=== PATIENT | female | born 1965 | race African-American/Black ===

== ENCOUNTER 2016-10-22 23:10 | Emergency (ER) | payer SELFPAY ==
[2016-10-23] MEDS ORDERED: HYDROCODONE/ACETAMINOPHEN 5-325 MG TABLET PO ONE (01:22)
--- NOTE | 2016-10-23 01:22 | ER Document Report ---
ED Extremity Problem, Lower - General Chief Complaint: Foot Pain Stated Complaint: LEG/FEET NUMBNESS Time seen by provider: 01:20 Mode of Arrival: Ambulatory Information source: Patient Notes: 51-year-old female presents to ED for left right foot pain and swelling for about a year worse for the last 2 months TRAVEL OUTSIDE OF THE [place] IN LAST 30 DAYS: No - HPI Patient complains to provider of: Pain, Swelling - Bilateral feet Location: Foot Occurred: Other - About a year worse for the last 2 months Onset/Duration: Intermittent Quality of pain: Sharp, Throbbing Severity: Severe Pain Level: 5 Context: Other - Painful bilateral feet Recent injury: No Associated symptoms: Painful ambulation Exacerbated by: Movement, Walking Relieved by: Nothing - Related Data Allergies/Adverse Reactions: No Known Allergies Allergy (Verified 10/23/16 01:25) Past Medical History - General Information source: Patient - Social History Smoking Status: Current Every Day Smoker Cigarette use (# per day): Yes Chew tobacco use (# tins/day): No Frequency of alcohol use: Occasional Drug Abuse: None Lives with: Family Family History: Arthritis, CAD, CVA, Hyperlipidemia, Hypertension - Past Medical History Cardiac Medical History: Reports: None Pulmonary Medical History: Reports: None EENT Medical History: Reports: None Neurological Medical History: Reports: None Endocrine Medical History: Reports: None Renal/ Medical History: Reports: None Malignancy Medical History: Reports: None GI Medical History: Reports: None Musculoskeltal Medical History: Reports Hx Arthritis, Reports Hx Gout, Reports Hx Musculoskeletal Trauma Skin Medical History: Reports None Psychiatric Medical History: Reports: None Traumatic Medical History: Reports: Hx Fractures - right toes 4th and 5th Infectious Medical History: Reports: None Past Surgical History: Reports: Hx Section, Hx Orthopedic Surgery - left wrist cyst - Immunizations Immunizations up to date: Yes Hx Diphtheria, Pertussis, Tetanus Vaccination: Yes Review of Systems - Review of Systems Constitutional: No symptoms reported EENT: No symptoms reported Cardiovascular: No symptoms reported Respiratory: No symptoms reported Gastrointestinal: No symptoms reported Genitourinary: No symptoms reported Female Genitourinary: No symptoms reported Musculoskeletal: Other - Both feet to painful to walk Skin: No symptoms reported Hematologic/Lymphatic: No symptoms reported Neurological/Psychological: No symptoms reported -: Yes All other systems reviewed and negative Physical Exam - Vital signs Vitals: Temp Pulse Resp BP Pulse Ox 98.2 F 95 18 143/67 H 95 10/22/16 23:16 10/22/16 23:16 10/22/16 23:16 10/22/16 23:16 10/22/16 23:16 Interpretation: Normal - General General appearance: Appears well, Alert - HEENT Head: Normocephalic, Atraumatic Eyes: Normal Pupils: PERRL - Respiratory Respiratory status: No respiratory distress Chest status: Nontender Breath sounds: Normal Chest palpation: Normal - Cardiovascular Rhythm: Regular Heart sounds: Normal auscultation Murmur: No - Abdominal Inspection: Normal Distension: No distension Bowel sounds: Normal Tenderness: Nontender Organomegaly: No organomegaly - Back Back: Normal, Nontender - Extremities General upper extremity: Normal inspection, Nontender, Normal color, Normal ROM , Normal temperature General lower extremity: Normal inspection, Normal color, Normal ROM, Normal temperature. No: Nagi's sign Foot: Tender, No evidence of FB, Other - Small knot on the arch of the left foot plantar surface - Neurological Neuro grossly intact: Yes Cognition: Normal Orientation: AAOx4 [place] Coma Scale Eye Opening: Spontaneous [place] Coma Scale Verbal: Oriented [place] Coma Scale Motor: Obeys Commands [place] Coma Scale Total: 15 Speech: Normal Motor strength normal: LUE, RUE, LLE, RLE Sensory: Normal - Psychological Associated symptoms: Normal affect, Normal mood - Skin Skin Temperature: Warm Skin Moisture: Dry Skin Color: Normal Course - Re-evaluation Re-evalutation: 10/23/16 02:21 Discussed x-rays with patient written report given to patient for follow-up with home care coordinator. Patient was treated with 1 [place] in the ED and discharged home with instructions to use ibuprofen and follow-up with the home care coordinator for her chronic pain. - Vital Signs Vital signs: Temp Pulse Resp BP Pulse Ox 98.4 F 83 16 128/87 H 97 10/23/16 02:34 10/23/16 02:34 10/23/16 02:34 10/23/16 02:34 10/23/16 02:34 - Diagnostic Test Radiology reviewed: Image reviewed, Reports reviewed Discharge - Discharge Clinical Impression: Chronic foot pain Qualifiers: Laterality: unspecified laterality Qualified Code(s): M79.673 - Pain in unspecified foot Condition: Stable Disposition: HOME, SELF-CARE Instructions: Family Physicians / Practices Additional Instructions: Chronic Pain Control Stress, inactivity, and depression make pain more severe regardless of the cause of the pain. Stress and poor physical condition can cause pain such as headaches and backache. Relaxation: Rest in a quiet place with your eyes closed for 20 minutes twice daily. Concentrate on a pleasant image, or simply "feel" your breathing. Clear your mind. Stress management: Deal with your "stressors." Either take action, or eliminate the stressor from your life. Don't let things hang over you. Accept those things you can't change. Nutrition: Eat small, balanced meals -- don't skip, don't overeat. Meals should be high-carbohydrate, low-sugar, low-fat. Exercise: Exercise helps painful conditions and eases stress. Get 30 minutes of moderate exercise, five days a week. Do an activity that does not flare your pain. Precautions: Pain which continues to disrupt daily activities, or which changes in nature, requires a medical evaluation. Pain Clinic referral is available. We do not manage chronic pain in the Emergency Department. We will try to appropriately help you through an acute flare of your chronic painful condition , but for on-going chronic pain that does not improve, you will need to see your private doctor or apprentice painter hand. We do not provide repeated medication management of chronic painful conditions. If you wish, we can provide the name of local pain management physicians. Ibuprofen Ibuprofen is an excellent, safe drug for pain control. In addition, it has potent antiinflammatory effects which are beneficial, especially in the treatment of injuries, arthritis, or tendonitis. It's best to take ibuprofen with food. Persons with ulcer disease or allergy to aspirin should notify their physician of this before taking ibuprofen. Take the medication exactly as prescribed. Don't take additional doses unless instructed to do so by your doctor. If you develop wheezing, shortness of breath, hives, faintness, stomach pain, vomiting, or dark black stools, return for re-evaluation at once. FOLLOW-UP CARE: If you have been referred to a physician for follow-up care, call the physician s office for an appointment as you were instructed or within the next two days. If you experience worsening or a significant change in your symptoms, notify the physician immediately or return to the Emergency Department at any time for re-evaluation. Please follow-up with your primary doctor and a home care coordinator for your chronic pain to your feet. Forms: Elevated Blood Pressure Referrals: JOSE ENRIQUE DPM [ACTIVE STAFF] - Follow up as needed
[2016-10-23 02:36] VITALS: BP 128/87
== END 2016-10-23 02:35 | disposition home or self-care (01) ==
LOC: ER 23:10
DX: M79.671 Pain in right foot (principal); M79.672 Pain in left foot; G89.29 Other chronic pain; R22.42 Localized swelling, mass and lump, left lower limb; F17.210 Nicotine dependence, cigarettes, uncomplicated; Z87.81 Personal history of (healed) traumatic fracture
CPT/HCPCS: 99283

== ENCOUNTER 2016-11-01 04:43 | Emergency (ER) | payer SELFPAY ==
[2016-11-01] MEDS ORDERED: NORMAL SALINE 500 ML IV ONE (06:01)
[2016-11-01] MEDS ORDERED: MORPHINE SULFATE 10 MG/ML INJ IV ONE (06:02)
[2016-11-01 06:03] VITALS: BP 121/84
[2016-11-01 06:44] LABS: ABSOLUTE EOSINOPHILS # (AUTO) 0.1 10^3/uL (0.0-0.6); ABSOLUTE LYMPHOCYTES (AUTO) 1.3 10^3/uL (0.5-4.7); ABSOLUTE MONOCYTES (AUTO) 0.7 10^3/uL (0.1-1.4); ABSOLUTE NEUT (AUTO) 4.1 10^3/uL (1.7-8.2); BASOPHILS % (AUTO) 0.8 % (0-2); EOSINOPHILS % (AUTO) 2.3 % (0-6); HEMATOCRIT 31.6 % (36.0-47.0); HEMOGLOBIN 10.2 g/dL (12.0-15.5); LYMPHOCYTES % (AUTO) 20.8 % (13-45); MEAN CORPUSCULAR HEMOGLOBIN 26.9 pg (27.0-33.4); MEAN CORPUSCULAR HGB CONC 32.3 g/dL (32.0-36.0); MEAN CORPUSCULAR VOLUME 83 fl (80-97); MONOCYTES % (AUTO) 10.6 % (3-13); RED BLOOD COUNT 3.81 10^6/uL (3.72-5.28); RED CELL DISTRIBUTION WIDTH 14.4 % (11.5-14.0); SEGMENTED NEUTROPHILS % (AUTO) 65.5 % (42-78); WHITE BLOOD COUNT 6.3 10^3/uL (4.0-10.5)
[2016-11-01 06:56] LABS: ALANINE AMINOTRANSFERASE 35 U/L (9-52); ALBUMIN 3.7 g/dL (3.5-5.0); ALKALINE PHOSPHATASE 48 U/L (38-126); ANION GAP 7 (5-19); ASPARTATE AMINO TRANSFERASE 40 U/L (14-36); BILIRUBIN,TOTAL 0.6 mg/dL (0.2-1.3); BLOOD UREA NITROGEN 7 mg/dL (7-20); CALCIUM 9.5 mg/dL (8.4-10.2); CARBON DIOXIDE 25 mmol/L (22-30); CHLORIDE 102 mmol/L (98-107); CREATININE RESULT 0.64 mg/dL (0.52-1.25); GLUCOSE 106 mg/dL (75-110); POTASSIUM 4.3 mmol/L (3.6-5.0); SODIUM 134.2 mmol/L (137-145); TOTAL PROTEIN 7.3 g/dL (6.3-8.2)
--- NOTE | 2016-11-01 07:39 | ER Document Report ---
ED General - General Chief Complaint: Abdominal Pain Stated Complaint: ABDOMINAL PAIN Mode of Arrival: Medic Information source: Patient Notes: 51-year-old female presents with complaints of sudden sharp abdominal pain. Patient notes the pain is in the left upper left lower quadrant not associated with fever nausea vomiting or diarrhea. Patient does note blood pain is well, states she's been coughing for 2 days TRAVEL OUTSIDE OF THE [place] IN LAST 30 DAYS: No - HPI Onset: Just prior to arrival Onset/Duration: Sudden Quality of pain: Sharp Severity: Mild Pain Level: 1 Associated symptoms: Other Exacerbated by: Denies Relieved by: Denies Similar symptoms previously: Yes Recently seen / treated by doctor: No - Related Data Allergies/Adverse Reactions: No Known Allergies Allergy (Verified 10/23/16 01:25) Past Medical History - Social History Smoking Status: Never Smoker Cigarette use (# per day): No Chew tobacco use (# tins/day): No Smoking Education Provided: No Family History: Arthritis, CAD, CVA, Hyperlipidemia, Hypertension Renal/ Medical History: Denies: Hx Peritoneal Dialysis Musculoskeltal Medical History: Reports Hx Arthritis, Reports Hx Gout, Reports Hx Musculoskeletal Trauma Traumatic Medical History: Reports: Hx Fractures - right toes 4th and 5th Past Surgical History: Reports: Hx Section, Hx Orthopedic Surgery - left wrist cyst - Immunizations Immunizations up to date: Yes Hx Diphtheria, Pertussis, Tetanus Vaccination: Yes Review of Systems - Review of Systems Notes: REVIEW OF SYSTEMS: CONSTITUTIONAL : Denies fever, chills, or sweats. Denies recent illness. EENT: Denies eye, ear, throat, or mouth pain or symptoms. Denies nasal or sinus congestion or discharge. Denies throat, tongue, or mouth swelling or difficulty swallowing. CARDIOVASCULAR: Denies chest pain. Denies palpitations or racing or irregular heart beat. Denies ankle edema. RESPIRATORY: Denies cough, cold, or chest congestion. Denies shortness of breath, difficulty breathing, or wheezing. GASTROINTESTINAL: Admits to abdominal pain GENITOURINARY: Denies difficulty urinating, painful urination, burning, frequency, blood in urine, or discharge. FEMALE GENITOURINARY: Denies vaginal bleeding, heavy or abnormal periods, irregular periods. Denies vaginal discharge or odor. MUSCULOSKELETAL: Denies back or neck pain or stiffness. Denies joint pain or swelling. SKIN: Denies rash, lesions or sores. HEMATOLOGIC : Denies easy bruising or bleeding. LYMPHATIC: Denies swollen, enlarged glands. NEUROLOGICAL: Denies confusion or altered mental status. Denies passing out or loss of consciousness. Denies dizziness or lightheadedness. Denies headache. Denies weakness or paralysis or loss of use of either side. Denies problems with gait or speech. Denies sensory loss, numbness, or tingling. Denies seizures. PSYCHIATRIC: Denies anxiety or stress. Denies depression, suicidal ideation, or homicidal ideation. ALL OTHER SYSTEMS REVIEWED AND NEGATIVE. Dictation was performed using [employer] voice recognition software PHYSICAL EXAMINATION: GENERAL: Well-appearing, well-nourished and in no acute distress. HEAD: Atraumatic, normocephalic. EYES: Pupils equal round and reactive to light, extraocular movements intact, conjunctiva are normal. ENT: Nares patent, oropharynx clear without exudates. Moist mucous membranes. NECK: Normal range of motion, supple without lymphadenopathy LUNGS: Breath sounds clear to auscultation bilaterally and equal. No wheezes rales or rhonchi. HEART: Regular rate and rhythm without murmurs ABDOMEN: Soft, nontender, nondistended abdomen. No guarding, no rebound. No masses appreciated. Female : deferred Musculoskeletal: Normal range of motion, no pitting or edema. No cyanosis. NEUROLOGICAL: Cranial nerves grossly intact. Normal speech, normal gait. Normal sensory, motor exams PSYCH: Normal mood, normal affect. SKIN: Warm, Dry, normal turgor, no rashes or lesions noted. Physical Exam - Vital signs Vitals: Temp Pulse Resp BP Pulse Ox 99.4 F 97 18 121/84 99 11/01/16 04:45 11/01/16 04:45 11/01/16 04:45 11/01/16 04:45 11/01/16 04:45 Course - Re-evaluation Re-evalutation: 11/01/16 07:38 Patient notes no tenderness on palpation, lab work is quite benign, CT of the abdomen has been ordered as I do not see any findings wanting the patient's pain 11/01/16 08:26 CT noted no acute abnormality however there is enlargement of adrena gland noted , patient has been made aware of this and has been instructed to give instructions to her primary care physician for further evaluation of this. Patient states she will. I believe the patient's pain secondary to her cough given that there is no other fractures process noted After performing a Medical Screening Examination, I estimate there is LOW risk for ACUTE CORONARY SYNDROME, RESPIRATORY FAILURE, SEPSIS OR MENINGITIS, thus I consider the discharge disposition reasonable. The patient and I have discussed the diagnosis and risks, and we agree with discharging home with close follow- up. We also discussed returning to the Emergency Department immediately if new or worsening symptoms occur. We have discussed the symptoms which are most concerning (e.g., changing or worsening pain, trouble swallowing or breathing, neck stiffness, fever) that necessitate immediate return. - Vital Signs Vital signs: Temp Pulse Resp BP Pulse Ox 99.4 F 97 18 121/84 99 11/01/16 04:45 11/01/16 04:45 11/01/16 04:45 11/01/16 04:45 11/01/16 04:45 - Laboratory Result Diagrams: 11/01/16 06:33 11/01/16 06:33 Laboratory results interpreted by me: 11/01/16 11/01/16 06:33 06:33 Hgb 10.2 L Hct 31.6 L MCH 26.9 L RDW 14.4 H Sodium 134.2 L AST 40 H - Diagnostic Test Radiology reviewed: Image reviewed, Reports reviewed Discharge - Discharge Clinical Impression: Adrenal mass URI (upper respiratory infection) Qualifiers: URI type: unspecified viral URI Qualified Code(s): J06.9 - Acute upper respiratory infection, unspecified; B97.89 - Other viral agents as the cause of diseases classified elsewhere Abdominal pain Qualifiers: Abdominal location: left upper quadrant Qualified Code(s): R10.12 - Left upper quadrant pain Condition: Stable Disposition: HOME, SELF-CARE Instructions: Upper Respiratory Illness ([facility]) Additional Instructions: Follow up with your physician tomorrow for further care or return to the ED IMMEDIATELY if symptoms worsen or new concerns occur Prescriptions: Hydrocodone Bit/Homatropine [Hycodan Syrup 5-1.5 mg/5 ml Ud Cup] 5 ml PO Q4HP PRN #120 ml PRN Reason: Forms: Return to Work
[2016-11-01] MEDS ORDERED: OXYCODONE-ACETAMINOPHEN 5-325 MG TABLET PO ONE (08:31)
== END 2016-11-01 08:45 | disposition home or self-care (01) ==
LOC: ER 04:43
DX: J06.9 Acute upper respiratory infection, unspecified (principal); B97.89 Other viral agents as the cause of diseases classified elsewhere; R10.12 Left upper quadrant pain; R10.32 Left lower quadrant pain; R59.0 Localized enlarged lymph nodes; R05 Cough
CPT/HCPCS: 99284; 96374; 36415; 83690; 85025; 80053; 74177; J2270; J7040

== ENCOUNTER 2017-01-16 06:12 | Emergency (ER) | payer SELFPAY ==
[2017-01-16] MEDS ORDERED: OXYCODONE-ACETAMINOPHEN 5-325 MG TABLET PO ONE (07:50)
[2017-01-16] MEDS ORDERED: ONDANSETRON 4 MG TAB.RAPDIS PO ONE (07:50)
--- NOTE | 2017-01-16 07:56 | ER Document Report ---
ED Extremity Problem, Lower - General Mode of Arrival: Medic Information source: Patient TRAVEL OUTSIDE OF THE [place] IN LAST 30 DAYS: No - HPI Patient complains to provider of: Pain Location: Foot - Right Occurred: Yesterday Onset/Duration: Gradual, Worse Recent injury: No Associated symptoms: Painful ambulation <FAIZA RODRIGUEZ - Last Filed: 01/16/17 07:51> <CATALINO CARSON - Last Filed: 01/16/17 10:15> - General Chief Complaint: Foot Pain Stated Complaint: RIGHT SIDE PAIN,DIZZY Notes: Patient is a 51-year-old female presenting to the emergency department via EMS with chief complaint right foot pain onset last night. Patient states that she is unable to walk, and is experiencing some lack of sensation under her foot. Patient also states that the pain radiates up her leg into her hip and lower back. Patient denies any injury or excessive walking. Patient states that she has a history of gout on her other foot in the same location, which was diagnosed approximately one year ago. (FAIZA RODRIGUEZ) - Related Data Allergies/Adverse Reactions: No Known Allergies Allergy (Verified 01/16/17 06:48) Past Medical History - General Information source: Patient, [facility] Records - Social History Smoking Status: Current Every Day Smoker Chew tobacco use (# tins/day): No Frequency of alcohol use: Rare Drug Abuse: None Family History: Arthritis, CAD, CVA, Hyperlipidemia, Hypertension Musculoskeltal Medical History: Reports Hx Arthritis, Reports Hx Gout, Reports Hx Musculoskeletal Trauma Traumatic Medical History: Reports: Hx Fractures - right toes 4th and 5th Past Surgical History: Reports: Hx Section, Hx Orthopedic Surgery - L wrist cyst - Immunizations Immunizations up to date: Yes Hx Diphtheria, Pertussis, Tetanus Vaccination: Yes <FAIZA RODRIGUEZ - Last Filed: 01/16/17 07:51> Review of Systems - Review of Systems Constitutional: No symptoms reported EENT: No symptoms reported Cardiovascular: No symptoms reported Respiratory: No symptoms reported Gastrointestinal: No symptoms reported Genitourinary: No symptoms reported Female Genitourinary: No symptoms reported Musculoskeletal: See HPI, Other - Right foot tenderness radiating up leg into hip and lower back Skin: No symptoms reported Hematologic/Lymphatic: No symptoms reported Neurological/Psychological: No symptoms reported -: Yes All other systems reviewed and negative <FAIZA RODRIGUEZ - Last Filed: 01/16/17 07:51> Physical Exam - General General appearance: Alert - HEENT Head: Normocephalic, Atraumatic Eyes: Normal Pupils: PERRL - Respiratory Respiratory status: No respiratory distress Chest status: Nontender Breath sounds: Normal Chest palpation: Normal - Cardiovascular Rhythm: Regular Heart sounds: Normal auscultation Murmur: No - Abdominal Inspection: Normal Distension: No distension Bowel sounds: Normal Tenderness: Nontender Organomegaly: No organomegaly - Back Back: Normal, Nontender - Extremities General upper extremity: Normal inspection, Nontender Foot: Tender - Right foot inflamed and tender over the bunion. - Neurological Neuro grossly intact: Yes Cognition: Normal Orientation: AAOx4 [place] Coma Scale Eye Opening: Spontaneous [place] Coma Scale Verbal: Oriented [place] Coma Scale Motor: Obeys Commands [place] Coma Scale Total: 15 Speech: Normal - Psychological Associated symptoms: Normal affect, Normal mood - Skin Skin Temperature: Warm Skin Moisture: Dry Skin Color: Normal <MICHAELFAIZA - Last Filed: 01/16/17 07:51> Course <MICHAELFAIZA - Last Filed: 01/16/17 07:51> - Laboratory Result Diagrams: 01/16/17 08:50 01/16/17 08:50 <CATALINO CARSON - Last Filed: 01/16/17 10:15> - Re-evaluation Re-evalutation: 01/16/17 10:14 Reevaluation after the patient had pain medication on board allows a better exam of the right foot. There is tender swelling erythema to the right first MTP joint. There is a bunion, but this is not the problem. The patient's uric acid level was 8.4 which helps confirm this being a gout attack. (CATALINO CARSON ) - Vital Signs Vital signs: Temp Pulse Resp BP Pulse Ox 98.9 F 102 H 20 120/65 96 01/16/17 06:22 01/16/17 06:22 01/16/17 06:22 01/16/17 06:22 01/16/17 06:22 - Laboratory Laboratory results interpreted by me: 01/16/17 01/16/17 08:50 08:50 Hgb 11.5 L MCV 78 L MCH 25.0 L MCHC 31.9 L RDW 17.5 H Carbon Dioxide 21 L Glucose 125 H Uric Acid 8.4 H Total Protein 8.4 H Discharge <FAIZA RODRIGUEZ - Last Filed: 01/16/17 07:51> <CATALINO CARSON - Last Filed: 01/16/17 10:15> - Discharge Clinical Impression: Gout attack Qualifiers: Gout site: toe Gout etiology: unspecified cause Laterality: right Qualified Code(s): M10.9 - Gout, unspecified Condition: Stable Disposition: HOME, SELF-CARE Additional Instructions: Gout: You have been diagnosed as having gout. Gout is a problem caused by an excess of uric acid, a natural chemical found in the body. The cause of this disease is unknown. Gout arthritis occurs when crystals of uric acid form in the joints. The big toe is the most common joint involved, but any joint can become affected. Persons with gout may also form uric acid kidney stones, resulting in flank pain and blood in the urine. Nodules of uric acid may form under the skin. The first step of treatment is to decrease the inflammation in the joint with antiinflammatory medication. Medication to lower the uric acid level in the blood may then be prescribed. This medication should be taken regularly, as any sudden change in dosage may provoke an attack of gout. Some foods, such as red meat, can provoke an attack in some gout sufferers. Call the doctor if new symptoms arise, or if you do not improve. //////////////////////////////////////////////////////////////////////////////// //////////////////////////////////////////////////////////////////////////////// //////////////// Start the prednisone tomorrow, you have had today's dose here in the emergency room. Take the pain medication as needed. Elevate your foot as much as possible. Limit walking, standing, and weightbearing. Follow-up with the [facility] this week to discuss treating your gout and elevated uric acid levels. RETURN TO THE EMERGENCY ROOM IF ANY NEW OR WORSENING SYMPTOMS. Prescriptions: Oxycodone HCl/Acetaminophen [Percocet 5-325 mg Tablet] 1 tab PO ASDIR PRN #15 tablet PRN Reason: Prednisone [Deltasone 10 mg Tablet] 10 mg PO ASDIR PRN #21 tablet PRN Reason: Forms: Return to Work Referrals: [facility] [Primary Care Provider] - Follow up in 3-5 days Scribe Attestation: 01/16/17 10:15 I personally performed the services described in the documentation, reviewed and edited the documentation which was dictated to the scribe in my presence, and it accurately records my words and actions. (CATALINO CARSON) Scribe Documentation - Scribe Written by Scribe:: Faiza Rodriguez 01/16/2017 [id number] acting as scribe for :: Dell <FAIZA RODRIGUEZ - Last Filed: 01/16/17 07:51>
[2017-01-16 09:01] LABS: ABSOLUTE BASOPHILS # (AUTO) 0.1 10^3/uL (0.0-0.2); ABSOLUTE EOSINOPHILS # (AUTO) 0.1 10^3/uL (0.0-0.6); ABSOLUTE LYMPHOCYTES (AUTO) 2.2 10^3/uL (0.5-4.7); ABSOLUTE MONOCYTES (AUTO) 0.8 10^3/uL (0.1-1.4); ABSOLUTE NEUT (AUTO) 7.3 10^3/uL (1.7-8.2); BASOPHILS % (AUTO) 1.4 % (0-2); EOSINOPHILS % (AUTO) 0.6 % (0-6); HEMATOCRIT 36.1 % (36.0-47.0); HEMOGLOBIN 11.5 g/dL (12.0-15.5); HGB HCT DIFFERENCE -1.6; LYMPHOCYTES % (AUTO) 20.7 % (13-45); MEAN CORPUSCULAR HGB CONC 31.9 g/dL (32.0-36.0); MEAN CORPUSCULAR VOLUME 78 fl (80-97); MONOCYTES % (AUTO) 7.8 % (3-13); RED CELL DISTRIBUTION WIDTH 17.5 % (11.5-14.0); SEGMENTED NEUTROPHILS % (AUTO) 69.5 % (42-78); WHITE BLOOD COUNT 10.5 10^3/uL (4.0-10.5)
[2017-01-16 09:22] LABS: ALANINE AMINOTRANSFERASE 28 U/L (9-52); ALBUMIN 4.7 g/dL (3.5-5.0); ALKALINE PHOSPHATASE 58 U/L (38-126); ANION GAP 17 (5-19); ASPARTATE AMINO TRANSFERASE 33 U/L (14-36); BILIRUBIN,DIRECT 0.2 mg/dL (0.0-0.4); BILIRUBIN,TOTAL 0.8 mg/dL (0.2-1.3); BLOOD UREA NITROGEN 7 mg/dL (7-20); CALCIUM 10.1 mg/dL (8.4-10.2); CARBON DIOXIDE 21 mmol/L (22-30); CHLORIDE 102 mmol/L (98-107); CREATININE RESULT 0.65 mg/dL (0.52-1.25); GLUCOSE 125 mg/dL (75-110); SODIUM 139.5 mmol/L (137-145); TOTAL PROTEIN 8.4 g/dL (6.3-8.2); URIC ACID 8.4 mg/dL (2.5-7.5)
[2017-01-16] MEDS ORDERED: PREDNISONE 20 MG TABLET PO ONE (10:04)
[2017-01-16] MEDS ORDERED: COLCHICINE 0.6 MG TABLET PO ONE (10:16)
[2017-01-16 10:38] VITALS: BP 131/71
== END 2017-01-16 10:34 | disposition home or self-care (01) ==
LOC: ER 06:12
DX: M10.9 Gout, unspecified (principal); M79.671 Pain in right foot; F17.200 Nicotine dependence, unspecified, uncomplicated; Z87.81 Personal history of (healed) traumatic fracture
CPT/HCPCS: 99284; 36415; 84550; 85025; 80053; 73630; S0119; J7512

== ENCOUNTER 2017-01-31 17:22 | Emergency (ER) | payer SELFPAY ==
[2017-01-31] MEDS ORDERED: OXYCODONE-ACETAMINOPHEN 5-325 MG TABLET PO ONE (19:08)
--- NOTE | 2017-01-31 19:09 | ER Document Report ---
ED Medical Screen (RME) - General Chief Complaint: Foot Pain Stated Complaint: RIGHT FOOT PAIN Time Seen by Provider: 01/31/17 19:02 Information source: Patient Notes: Patient complains of pain today in her right foot and ankle radiating up her right leg. She felt feverish with nausea and vomiting. Patient was seen and evaluated for left foot pain 2 weeks ago. She was told it was gout. She went to see her primary care physician who told her that it was her "anxiety" and gave her a prescription for verapamil and gabapentin. She did not fill the gabapentin. TRAVEL OUTSIDE OF THE [place] IN LAST 30 DAYS: No - Related Data Allergies/Adverse Reactions: No Known Allergies Allergy (Verified 01/31/17 17:53) Past Medical History - Social History Family history: CVA, Hypertension Renal/ Medical History: Denies: Hx Peritoneal Dialysis Musculoskeltal Medical History: Reports Hx Arthritis, Reports Hx Gout, Reports Hx Musculoskeletal Trauma Traumatic Medical History: Reports: Hx Fractures - right toes 4th and 5th Past Surgical History: Reports: Hx Section, Hx Orthopedic Surgery - L wrist cyst - Immunizations Immunizations up to date: Yes Hx Diphtheria, Pertussis, Tetanus Vaccination: Yes Physical Exam - Vital signs Vitals: Temp Pulse Resp BP Pulse Ox 100.3 F 116 H 20 126/91 H 99 01/31/17 17:57 01/31/17 17:57 01/31/17 17:57 01/31/17 17:57 01/31/17 17:57 Course - Vital Signs Vital signs: Temp Pulse Resp BP Pulse Ox 100.3 F 116 H 20 126/91 H 99 01/31/17 17:57 01/31/17 17:57 01/31/17 17:57 01/31/17 17:57 01/31/17 17:57
[2017-01-31 20:02] LABS: ABSOLUTE BASOPHILS # (AUTO) 0.1 10^3/uL (0.0-0.2); ABSOLUTE EOSINOPHILS # (AUTO) 0.1 10^3/uL (0.0-0.6); ABSOLUTE LYMPHOCYTES (AUTO) 2.7 10^3/uL (0.5-4.7); ABSOLUTE MONOCYTES (AUTO) 0.8 10^3/uL (0.1-1.4); ABSOLUTE NEUT (AUTO) 11.9 10^3/uL (1.7-8.2); BASOPHILS % (AUTO) 0.6 % (0-2); EOSINOPHILS % (AUTO) 0.4 % (0-6); HEMOGLOBIN 11.3 g/dL (12.0-15.5); HGB HCT DIFFERENCE -2.1; LYMPHOCYTES % (AUTO) 17.3 % (13-45); MEAN CORPUSCULAR HEMOGLOBIN 24.8 pg (27.0-33.4); MEAN CORPUSCULAR HGB CONC 31.3 g/dL (32.0-36.0); MEAN CORPUSCULAR VOLUME 79 fl (80-97); MONOCYTES % (AUTO) 5.1 % (3-13); RED BLOOD COUNT 4.54 10^6/uL (3.72-5.28); RED CELL DISTRIBUTION WIDTH 17.7 % (11.5-14.0); SEGMENTED NEUTROPHILS % (AUTO) 76.6 % (42-78); WHITE BLOOD COUNT 15.5 10^3/uL (4.0-10.5)
[2017-01-31 20:21] LABS: ALANINE AMINOTRANSFERASE 36 U/L (9-52); ALBUMIN 4.8 g/dL (3.5-5.0); ALKALINE PHOSPHATASE 66 U/L (38-126); ANION GAP 18 (5-19); ASPARTATE AMINO TRANSFERASE 27 U/L (14-36); BILIRUBIN,DIRECT 0.5 mg/dL (0.0-0.4); BILIRUBIN,TOTAL 0.7 mg/dL (0.2-1.3); BLOOD UREA NITROGEN 7 mg/dL (7-20); CALCIUM 10.6 mg/dL (8.4-10.2); CARBON DIOXIDE 18 mmol/L (22-30); CHLORIDE 100 mmol/L (98-107); CREATININE RESULT 0.71 mg/dL (0.52-1.25); GLUCOSE 123 mg/dL (75-110); POTASSIUM 4.1 mmol/L (3.6-5.0); SODIUM 136.1 mmol/L (137-145); TOTAL PROTEIN 8.9 g/dL (6.3-8.2)
--- NOTE | 2017-01-31 22:14 | EKG REPORT ---
SEVERITY:- OTHERWISE NORMAL ECG - SINUS TACHYCARDIA : Confirmed by: Klarissa Mcknight MD 31-Jan-2017 22:13:47
[2017-01-31] MEDS ORDERED: GABAPENTIN 300 MG CAPSULE PO ONE (22:37)
[2017-01-31] MEDS ORDERED: ACETAMINOPHEN 325 MG TABLET PO ONE (22:37)
[2017-01-31] MEDS ORDERED: IBUPROFEN 600 MG TABLET PO ONE (22:38)
[2017-01-31] MEDS ORDERED: MORPHINE SULFATE 10 MG/ML INJ IV PRN (22:39)
--- NOTE | 2017-01-31 22:40 | ER Document Report ---
ED General - General Chief Complaint: Foot Pain Stated Complaint: RIGHT FOOT PAIN Time Seen by Provider: 01/31/17 19:02 Notes: Patient is a 51-year-old female with past history of hypertension, chronic bilateral lower extremity pain for at least the past one year who presents with acute exacerbation of her right lower show any pain. Does describe as a severe , constant, burning pain. This that she often "cannot feel " her bilateral lower extremities. She was recently seen by a special delivery mail carrier and told that this was due to peripheral neuropathy instructed to begin gabapentin but did not follow these instructions and not start that medication. She was also seen in this emergency department on the first of this month for right lower extremity pain at that time diagnosed with possible gout flare. Patient does also complain that her pain is so bad "that it gives me chest pain". She denies any chest pain at time of my assessment states the pain is only there she is very upset about how much pain she is in. She is not noted that nothing seems to improve or worsen her pain. States she has a history of similar flares in the past. No history of DVT or pulmonary embolus. TRAVEL OUTSIDE OF THE [place] IN LAST 30 DAYS: No - Related Data Allergies/Adverse Reactions: No Known Allergies Allergy (Verified 01/31/17 17:53) Past Medical History - General Information source: Patient - Social History Smoking Status: Never Smoker Chew tobacco use (# tins/day): No Frequency of alcohol use: None Drug Abuse: None Lives with: Alone Family History: Arthritis, CAD, CVA, Hyperlipidemia, Hypertension Patient has suicidal ideation: No Patient has homicidal ideation: No Renal/ Medical History: Denies: Hx Peritoneal Dialysis Musculoskeltal Medical History: Reports Hx Arthritis, Reports Hx Gout, Reports Hx Musculoskeletal Trauma Traumatic Medical History: Reports: Hx Fractures - right toes 4th and 5th Past Surgical History: Reports: Hx Section, Hx Orthopedic Surgery - L wrist cyst - Immunizations Immunizations up to date: Yes Hx Diphtheria, Pertussis, Tetanus Vaccination: Yes Review of Systems - Review of Systems Notes: Constitutional: Negative for fever. HENT: Negative for sore throat. Eyes: Negative for visual changes. Cardiovascular: Negative for chest pain. Respiratory: Negative for shortness of breath. Gastrointestinal: Negative for abdominal pain, vomiting or diarrhea. Genitourinary: Negative for dysuria. Musculoskeletal: Negative for back pain. Positive for bilateral lower extremity pain worse on the right Skin: Negative for rash. Neurological: Negative for headaches, weakness or numbness. 10 point ROS negative except as marked above and in HPI. Physical Exam - Vital signs Vitals: Temp Pulse Resp BP Pulse Ox 100.3 F 116 H 20 126/91 H 99 01/31/17 17:57 01/31/17 17:57 01/31/17 17:57 01/31/17 17:57 01/31/17 17:57 Interpretation: Tachycardic Notes: PHYSICAL EXAMINATION: GENERAL: Appears to be in significant pain.. HEAD: Atraumatic, normocephalic. EYES: Pupils equal round and reactive to light, extraocular movements intact, sclera anicteric, conjunctiva are normal. ENT: nares patent, oropharynx clear without exudates. Moist mucous membranes. NECK: Normal range of motion, supple without lymphadenopathy LUNGS: Breath sounds clear to auscultation bilaterally and equal. No wheezes rales or rhonchi. HEART: Regular tachycardia without murmurs ABDOMEN: Soft, nontender, normoactive bowel sounds. No guarding, no rebound. No masses appreciated. EXTREMITIES: Normal range of motion, mild swelling of the right lower extremity at the level of the knee, calf and ankle. No focal erythema or warmth other diffuse pain on palpation and nearly the entire right lower extremity. NEUROLOGICAL: No focal neurological deficits. Moves all extremities spontaneously and on command. PSYCH: Extremely anxious, tearful SKIN: Warm, Dry, normal turgor, no rashes or lesions noted. Course - Re-evaluation Re-evalutation: 01/31/17 22:40 Patient presents with complaints of severe right lower extremity pain that has been present and getting worse for the last 24 hours although she was seen by multiple providers for this right lower extremity pain. Her vitals at time of arrival show tachycardia and laboratories reveal a leukocytosis at 15.3. She does appear to be in significant pain although there is not a prominent component of edema in the lower extremity suggests an acute DVT. Unfortunately PVL is not available this time my primary concern at this point would be given her fever and leukocytosis for an infection in the lower shotty. No evidence of gas formation on x-ray so will proceed with a CT of the right lower extremity with contrast to evaluate for an infection or critical occlusion to explain the degree of her pain. Regarding her chest pain: This appears to be emotional in nature as she admits that is only when she becomes extremely anxious that she experiences this symptom. A single troponin is negative and an EKG is without ischemic changes 01/31/17 22:41 CT of the right lower extremity does not demonstrate any evidence of an acute vascular occlusion or significant inflammatory changes. That this is related to patient's underlying peripheral neuropathy. I do not believe she is an appropriate candidate for recurrent outpatient opiates. I have asked her to fill her gabapentin as directed.At this time will discharge with return precautions and follow-up recommendations. Verbal discharge instructions given a the bedside and opportunity for questions given. Medication warnings reviewed. Patient is in agreement with this plan and has verbalized understanding of return precautions and the need for primary care follow-up in the next 24-72 hours. - Vital Signs Vital signs: Temp Pulse Resp BP Pulse Ox 99.1 F 116 H 20 126/91 H 99 01/31/17 21:53 01/31/17 17:57 01/31/17 17:57 01/31/17 17:57 01/31/17 17:57 - Laboratory Result Diagrams: 01/31/17 19:30 01/31/17 19:30 Laboratory results interpreted by me: 01/31/17 01/31/17 19:30 19:30 WBC 15.5 H Hgb 11.3 L MCV 79 L MCH 24.8 L MCHC 31.3 L RDW 17.7 H Absolute Neutrophils 11.9 H Sodium 136.1 L Carbon Dioxide 18 L Glucose 123 H Calcium 10.6 H Direct Bilirubin 0.5 H Total Protein 8.9 H - EKG Interpretation by Me Additional EKG results interpreted by me: 01/31/17 22:43 Sinus tachycardia. Rate 104. No ST elevations or depressions. QTC is 427. Discharge - Discharge Clinical Impression: Right leg pain Peripheral neuropathy Qualifiers: Peripheral neuropathy type: polyneuropathy, unspecified Qualified Code(s): G62.9 - Polyneuropathy, unspecified Condition: Good Disposition: HOME, SELF-CARE Additional Instructions: Your CT scan of the leg is normal. Remainder of your labs do not show no immediate cause for your complaint today and your x-rays are also normal. Please begin taking the gabapentin as prescribed. Keep in mind that your symptoms are likely related to peripheral neuropathy and this will take several weeks to get your pain completely under control. For your pain: Take ibuprofen 600 mg and acetaminophen 1000 mg every 6 hours together as needed for pain.
[2017-02-01] MEDS ORDERED: HYDROCODONE/ACETAMINOPHEN 5-325 MG 6 TAB/DSPK PO PRN (01:07)
[2017-02-01 01:26] VITALS: BP 126/70
== END 2017-02-01 01:26 | disposition home or self-care (01) ==
LOC: ER 17:22
DX: G62.9 Polyneuropathy, unspecified (principal); Z91.14 Patient's other noncompliance with medication regimen; M79.671 Pain in right foot; M79.605 Pain in left leg; G89.29 Other chronic pain; M79.89 Other specified soft tissue disorders; I10 Essential (primary) hypertension; R07.9 Chest pain, unspecified; R00.0 Tachycardia, unspecified; D72.829 Elevated white blood cell count, unspecified; Z87.81 Personal history of (healed) traumatic fracture
CPT/HCPCS: 93005; 99284; 96374; 36415; 87040; 85025; 80053; 84484; 73610; 73630; 73701; 93010; J2270

== ENCOUNTER → 2017-02-07 | Outpatient (CLI) | payer OTHER ==
[2017-02-07 09:54] LABS: CALCIUM 10.1 mg/dL (8.4-10.2); CHOLESTEROL 254.89 mg/dL (0-200); Direct HDL 39 mg/dL (>40); MAGNESIUM 1.8 mg/dL (1.6-2.3); TRIGLYCERIDES 301 mg/dL (<150)
[2017-02-07 10:04] LABS: DIRECT LDL 161 mg/dL (<100)
[2017-02-07 10:07] LABS: VLDL CHOLESTEROL 60.2 mg/dL (10-31)
[2017-02-07 10:20] LABS: THYROID STIMULATING HORMONE 1.99 uIU/mL (0.47-4.68)
[2017-02-08 14:27] LABS: HEPATITIS A AB TOTAL Positive (Negative)
== END ==
LOC: CCC 07:51
DX: E03.9 Hypothyroidism, unspecified (principal); K52.9 Noninfective gastroenteritis and colitis, unspecified; D50.9 Iron deficiency anemia, unspecified; R79.89 Other specified abnormal findings of blood chemistry
CPT/HCPCS: 36415; 80061; 82310; 82977; 83036; 83735; 84100; 84439; 84443; 86317; 86708; 86709; 87340

== ENCOUNTER 2017-02-20 06:09 | Emergency (ER) | payer OTHER ==
--- NOTE | 2017-02-20 07:53 | ER Document Report ---
ED Extremity Problem, Lower - General Chief Complaint: Foot Pain Stated Complaint: FOOT PAIN Time Seen by Provider: 02/20/17 07:51 Mode of Arrival: Wheelchair Information source: Patient Notes: Patient is a 51-year-old female who presents to the ER today for chronic right and left foot pain, but the right foot has been hurting worse over the last couple of days. Patient was seen here on 01 February and told that this was nerve pain, given gabapentin. Patient has also seen a occupancy specialist who diagnosed her with "nerve issues" and also gave her more gabapentin. Patient says she is taking her gabapentin but it is not helping. She denies any recent injury. She admits to some numbness and tingling in the right foot and the toes only. She denies being diabetic. TRAVEL OUTSIDE OF THE [place] IN LAST 30 DAYS: No - Related Data Allergies/Adverse Reactions: No Known Allergies Allergy (Verified 01/31/17 17:53) Past Medical History - General Information source: Patient - Social History Smoking Status: Current Every Day Smoker Chew tobacco use (# tins/day): No Frequency of alcohol use: Occasional Drug Abuse: None Family History: Arthritis, CAD, CVA, Hyperlipidemia, Hypertension Renal/ Medical History: Denies: Hx Peritoneal Dialysis Musculoskeltal Medical History: Reports Hx Arthritis, Reports Hx Gout, Reports Hx Musculoskeletal Trauma Traumatic Medical History: Reports: Hx Fractures - right toes 4th and 5th Past Surgical History: Reports: Hx Section, Hx Orthopedic Surgery - L wrist cyst - Immunizations Immunizations up to date: Yes Hx Diphtheria, Pertussis, Tetanus Vaccination: Yes Review of Systems - Review of Systems Constitutional: No symptoms reported EENT: No symptoms reported Cardiovascular: No symptoms reported Respiratory: No symptoms reported Gastrointestinal: No symptoms reported Genitourinary: No symptoms reported Female Genitourinary: No symptoms reported Musculoskeletal: See HPI Skin: No symptoms reported Hematologic/Lymphatic: No symptoms reported Neurological/Psychological: See HPI Physical Exam - Notes Notes: PHYSICAL EXAMINATION: GENERAL: Chronically ill-appearing, but in no acute distress. HEAD: Atraumatic, normocephalic. EYES: Pupils equal round and reactive to light, extraocular movements intact, sclera anicteric, conjunctiva are normal. NECK: Normal range of motion, supple without lymphadenopathy LUNGS: CTAB and equal. No wheezes rales or rhonchi. HEART: Regular rate and rhythm without murmurs BACK: no vertebral tenderness, normal ROM EXTREMITIES: Normal range of motion of lower extremities, but patient does not want to bear weight on the feet due to pain, no pitting edema. No cyanosis. Tender to entirety of right foot, patient jumps at slight touch, tender over dorsal left foot NEUROLOGICAL: Cranial nerves grossly intact. Normal sensory/motor exams. PSYCH: Normal mood, normal affect. SKIN: Warm, Dry, normal turgor, no rashes or lesions noted Course - Re-evaluation Re-evalutation: 02/20/17 08:57 X-ray on 517 reported a possible fracture, this is the only reason I re-x-ray the right foot today because patient was not placed in a postop shoe or splint last time if this is the case. X-ray today reported a normal foot x-ray without any acute pathology such as fracture. Patient was placed in postop shoe for comfort and told to follow-up with her occupancy specialist. Discharge - Discharge Clinical Impression: Right foot pain, Pain, foot, left, chronic Condition: Stable Disposition: HOME, SELF-CARE Additional Instructions: Return immediately for any new or worsening symptoms. Follow up with primary care provider, call tomorrow to make followup appointment. Prescriptions: Lidocaine [Lidoderm 5% (700 mg) Transdermal Patch] 1 patch TP DAILY #10 adh..patch Forms: Return to Work
[2017-02-20] MEDS ORDERED: HYDROCODONE/ACETAMINOPHEN 5-325 MG 6 TAB/DSPK PO PRN (07:56)
[2017-02-20] MEDS ORDERED: HYDROCODONE/ACETAMINOPHEN 5-325 MG TABLET PO ONE (07:59)
--- NOTE | 2017-02-20 08:43 | RADIOLOGY REPORT (SQ) ---
EXAM DESCRIPTION: FOOT RIGHT COMPLETE COMPLETED DATE/TIME: 02/20/2017 8:33 am REASON FOR STUDY: pain, previous fx? COMPARISON: 12/28/2012 NUMBER OF VIEWS: Three views. TECHNIQUE: AP, lateral and oblique radiographic images acquired of the right foot. LIMITATIONS: None. FINDINGS: MINERALIZATION: Normal. BONES: No acute fracture or dislocation. No worrisome bone lesions. JOINTS: No effusions. SOFT TISSUES: No soft tissue swelling. No foreign body. OTHER: No other significant finding. IMPRESSION: NEGATIVE STUDY OF THE RIGHT FOOT. NO RADIOGRAPHIC EVIDENCE OF ACUTE INJURY. TECHNICAL DOCUMENTATION: JOB ID: [id number] [employer]- All Rights Reserved
== END 2017-02-20 09:19 | disposition home or self-care (01) ==
LOC: ER 06:09
DX: G89.29 Other chronic pain (principal); M79.671 Pain in right foot; M79.672 Pain in left foot; M79.2 Neuralgia and neuritis, unspecified; R20.0 Anesthesia of skin; R20.2 Paresthesia of skin; F17.200 Nicotine dependence, unspecified, uncomplicated; Z79.899 Other long term (current) drug therapy; Z87.81 Personal history of (healed) traumatic fracture; Z87.39 Personal history of other diseases of the musculoskeletal system and connective tissue
CPT/HCPCS: 99283

== ENCOUNTER → 2017-02-27 | Outpatient (CLI) | payer OTHER ==
[~2017-02-27] MED LIST: DIAZEPAM 5 MG TABLET ONE
--- NOTE | 2017-02-27 15:01 | RADIOLOGY REPORT (SQ) ---
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 TECHNIQUE: Noncontrast imaging with attention to the adrenal glands, including in and out of phase T 1 sequences. LIMITATIONS: None. FINDINGS: ADRENAL GLANDS: 10 x 18 mm right adrenal mass. Decreased signal on the out of phase imagi ng. Left adrenal gland normal. GALLBLADDER: No masses. No stones. No gallbladder wall thickening or pericholecystic fluid. LIVER AND BILIARY STRUCTURES: Normal. No ductal dilatation. SPLEEN: Normal. PANCREAS: Normal. Peripancreatic tissues normal. PERITONEUM: No ascites, gross adenopathy or implants. OTHER: No other significant finding. IMPRESSION: RIGHT ADRENAL MASS WHICH HAS MR CHARACTERISTICS SUGGESTING AN INCIDENTAL ADENOMA. ON CT SCAN, THIS MASS HAS INCREASED IN SIZE COMPARED TO PRIOR STUDY IN JULY 2013. FOLLOW-UP MR SANGEETA G IN 6 MONTHS MAY BE HELPFUL TO VERIFY STABILITY. TECHNICAL DOCUMENTATION: JOB ID: [id number] [employer]- All Rights Reserved
== END ==
LOC: RAD 02-21 06:25
PROVIDERS: ATTEND Urology
DX: D44.10 Neoplasm of uncertain behavior of unspecified adrenal gland (principal)
CPT/HCPCS: 74181

== ENCOUNTER → 2017-03-02 | Outpatient (CLI) | payer OTHER ==
[2017-03-02 10:42] LABS: ANION GAP 13 (5-19); BLOOD UREA NITROGEN 8 mg/dL (7-20); CALCIUM 9.5 mg/dL (8.4-10.2); CARBON DIOXIDE 24 mmol/L (22-30); CHLORIDE 105 mmol/L (98-107); CREATININE RESULT 0.57 mg/dL (0.52-1.25); GLUCOSE 154 mg/dL (75-110); PHOSPHORUS 3.7 mg/dL (2.5-4.5); SODIUM 141.9 mmol/L (137-145)
[2017-03-02 11:15] LABS: FERRITIN 8.92 ng/mL (11.1-264.0)
[2017-03-02 11:46] LABS: FOLATE 5.15 ng/mL (>2.76)
== END ==
LOC: CCC 09:17
DX: E83.39 Other disorders of phosphorus metabolism (principal); R94.5 Abnormal results of liver function studies; D50.9 Iron deficiency anemia, unspecified; G62.9 Polyneuropathy, unspecified; R19.7 Diarrhea, unspecified
CPT/HCPCS: 36415; 80048; 82607; 82728; 82746; 83540; 83550; 84100; 87045; 87177; 87205; 89055

== ENCOUNTER 2017-05-31 02:10 | Emergency (ER) | payer OTHER ==
[2017-05-31 02:16] VITALS: BP 137/85
[2017-05-31] MEDS ORDERED: HYDROCODONE/ACETAMINOPHEN 5-325 MG 6 TAB/DSPK PO PRN (02:40)
--- NOTE | 2017-05-31 02:45 | ER Document Report ---
ED General - General Chief Complaint: Foot Pain Stated Complaint: FOOT PAIN Time Seen by Provider: 05/31/17 02:32 Notes: Patient is a 52-year-old female who is well-known to the ED. Presents here frequently because of leg and foot pain. She has a history of neuropathy. She says that she was referred to director of pupil personnel program who told her that she has restless leg syndrome as well as neuropathy. She does not have diabetes. She says she supposed to see her primary care doctor next week for continued workup such as further nerve conduction studies. She is on Neurontin. She says the Neurontin does not seem to be helping and some nights her pain is intractable and she cannot get sleep. Tinnitus wound is nice and therefore she is come to the ER. She denies any difficulty breathing. She denies any fevers. No recent infections. No recent trauma to her feet or legs. No other complaints at this time. She describes the pain as a burning type sensation that is mainly in her feet. TRAVEL OUTSIDE OF THE [place] IN LAST 30 DAYS: No - Related Data Allergies/Adverse Reactions: No Known Allergies Allergy (Verified 05/31/17 02:11) Past Medical History - Social History Smoking Status: Current Every Day Smoker Chew tobacco use (# tins/day): No Frequency of alcohol use: None Drug Abuse: None Family History: Arthritis, CAD, CVA, Hyperlipidemia, Hypertension Patient has suicidal ideation: No Patient has homicidal ideation: No Renal/ Medical History: Denies: Hx Peritoneal Dialysis Musculoskeltal Medical History: Reports Hx Arthritis - RA Restless leg, Reports Hx Gout, Reports Hx Musculoskeletal Trauma Traumatic Medical History: Reports: Hx Fractures - right toes 4th and 5th Past Surgical History: Reports: Hx Section, Hx Orthopedic Surgery - L wrist cyst - Immunizations Immunizations up to date: Yes Hx Diphtheria, Pertussis, Tetanus Vaccination: Yes Review of Systems - Review of Systems Notes: My Normal Review Basic REVIEW OF SYSTEMS: CONSTITUTIONAL : Denies fever, chills, or sweats. Denies recent illness. RESPIRATORY: Denies cough, cold, or chest congestion. Denies shortness of breath, difficulty breathing, or wheezing. GASTROINTESTINAL: Denies abdominal pain. Denies nausea, vomiting, or diarrhea. Denies constipation. Last BM: GENITOURINARY: Denies difficulty urinating, painful urination, burning, frequency, or blood in urine. MUSCULOSKELETAL: Burning type sensation in bilateral feet. SKIN: Denies rash or skin lesions. NEUROLOGICAL: Denies altered mental status or loss of consciousness. Denies headache. Denies weakness or paralysis or loss of use of either side. Denies problems with gait or speech. Denies sensory or motor loss.on. ALL OTHER SYSTEMS REVIEWED AND NEGATIVE. Physical Exam - Vital signs Vitals: Temp Pulse Resp BP Pulse Ox 98.4 F 98 20 137/85 H 91 L 05/31/17 02:14 05/31/17 02:14 05/31/17 02:14 05/31/17 02:14 05/31/17 02:14 - Notes Notes: General Appearance: Well nourished, alert, cooperative, no acute distress, moderate obvious discomfort. Vitals: reviewed, See vital signs table. Lungs: No wheezing, No rales, No rhonci, No accessory muscle use, good air exchange bilaterally. Heart: Normal rate, Regular rythm, No murmur, no rub Extremities: strength 5/5 in all extremities, good pulses in all extremities, patient does have some tenderness with light touch over the skin of her dorsum of her feet. Patient does not really have significant pain with deep palpation of the calves. She is good distal pulses. She has no edema. No redness. No warmth. No signs of infection. Skin: warm, dry, appropriate color, no rash Neuro: speech clear, oriented x 3, normal affect, responds appropriately to questions. Course - Re-evaluation Re-evalutation: 05/31/17 02:44 Patient will be given a few [place] tablets to take at home. Her symptoms and history seem very consistent with that of peripheral neuropathy. She has an upcoming appointment with her doctor for further studies including nerve conduction studies. Looking through records his symptoms have been ongoing for over a year. I informed her that chronic opiate treatment is not appropriate as using opiates every night will cause her pain to become worse as her opiate receptors to become sensitized. I informed her I will give her just a few [place] tablets to take only when her pain is extremely severe and not responding to her other treatments. Patient encouraged to follow-up closely with her primary care doctor. Patient encouraged to return to ER if there is redness or swelling or fevers. Patient agrees with plan will be discharged home. Dictation of this chart was performed using voice recognition software; therefore, there may be some unintended grammatical errors. - Vital Signs Vital signs: Temp Pulse Resp BP Pulse Ox 98.4 F 98 20 137/85 H 91 L 05/31/17 02:14 05/31/17 02:14 05/31/17 02:15 05/31/17 02:14 05/31/17 02:14 Discharge - Discharge Clinical Impression: Lower extremity pain, bilateral Condition: Good Disposition: HOME, SELF-CARE Additional Instructions: Please follow-up closely with your primary care doctor. Please inform them that you are continuing to have severe feet pain despite the Neurontin. I have given you a few [place] tablets to take at home. Only take these when your pain is severe and other pain medicines are working. Do not take these every night or your body will become dependent on them and then the pain will become worse.
== END 2017-05-31 02:52 | disposition home or self-care (01) ==
LOC: ER 02:10
DX: G62.9 Polyneuropathy, unspecified (principal); Z79.899 Other long term (current) drug therapy; M79.671 Pain in right foot; M79.672 Pain in left foot; F17.200 Nicotine dependence, unspecified, uncomplicated
CPT/HCPCS: 99283

== ENCOUNTER → 2017-07-25 | Outpatient (CLI) | payer OTHER ==
[2017-07-25 08:26] LABS: ABSOLUTE BASOPHILS # (AUTO) 0.2 10^3/uL (0.0-0.2); ABSOLUTE EOSINOPHILS # (AUTO) 0.1 10^3/uL (0.0-0.6); ABSOLUTE LYMPHOCYTES (AUTO) 2.3 10^3/uL (0.5-4.7); ABSOLUTE MONOCYTES (AUTO) 0.4 10^3/uL (0.1-1.4); ABSOLUTE NEUT (AUTO) 4.4 10^3/uL (1.7-8.2); BASOPHILS % (AUTO) 2.1 % (0-2); EOSINOPHILS % (AUTO) 1.3 % (0-6); HEMATOCRIT 38.1 % (36.0-47.0); HGB HCT DIFFERENCE 0.9; LYMPHOCYTES % (AUTO) 31.2 % (13-45); MEAN CORPUSCULAR HEMOGLOBIN 30.7 pg (27.0-33.4); MEAN CORPUSCULAR VOLUME 90 fl (80-97); MONOCYTES % (AUTO) 5.6 % (3-13); RED BLOOD COUNT 4.23 10^6/uL (3.72-5.28); RED CELL DISTRIBUTION WIDTH 14.6 % (11.5-14.0); SEGMENTED NEUTROPHILS % (AUTO) 59.8 % (42-78); WHITE BLOOD COUNT 7.3 10^3/uL (4.0-10.5)
[2017-07-25 08:50] LABS: ALANINE AMINOTRANSFERASE 31 U/L (9-52); ALBUMIN 4.6 g/dL (3.5-5.0); ALKALINE PHOSPHATASE 49 U/L (38-126); ANION GAP 16 (5-19); ASPARTATE AMINO TRANSFERASE 24 U/L (14-36); BILIRUBIN,DIRECT 0.4 mg/dL (0.0-0.4); BILIRUBIN,TOTAL 0.5 mg/dL (0.2-1.3); BLOOD UREA NITROGEN 6 mg/dL (7-20); CALCIUM 10.1 mg/dL (8.4-10.2); CARBON DIOXIDE 19 mmol/L (22-30); CHLORIDE 107 mmol/L (98-107); CHOLESTEROL 221.55 mg/dL (0-200); CREATININE RESULT 0.63 mg/dL (0.52-1.25); Direct HDL 48 mg/dL (>40); GLUCOSE 119 mg/dL (75-110); POTASSIUM 4.5 mmol/L (3.6-5.0); SODIUM 142.1 mmol/L (137-145); TOTAL PROTEIN 7.5 g/dL (6.3-8.2); TRIGLYCERIDES 465 mg/dL (<150)
[2017-07-25 09:01] LABS: DIRECT LDL 105 mg/dL (<100)
[2017-07-26 07:43] LABS: HEPATITIS C VIRUS AB >11.0 s/co ratio (0.0-0.9)
== END ==
LOC: CCC 07:38
DX: E11.40 Type 2 diabetes mellitus with diabetic neuropathy, unspecified (principal); E78.5 Hyperlipidemia, unspecified
CPT/HCPCS: 36415; 80053; 80061; 83036; 84443; 85025; 86803; 86804

== ENCOUNTER → 2017-08-16 | Outpatient (CLI) | payer OTHER ==
--- NOTE | 2017-08-16 10:07 | WOMENS IMAGING REPORT ---
EXAM DESCRIPTION: BILAT SCREENING MAMMO W/CAD COMPLETED DATE/TIME: 08/16/2017 7:11 am REASON FOR STUDY: SCREENING MAMMO Z12.31 ENCNTR SCREEN MAMMOGRAM FOR MALIGNANT NEOPLASM OF MOMO COMPARISON: 12/07/2010 TECHNIQUE: Standard craniocaudal and mediolateral oblique views of each breast recorded using [employer] acquisition. LIMITATIONS: None. FINDINGS: RIGHT BREAST MASSES: No suspicious masses. CALCIFICATIONS: No new or suspicious calcifications. ARCHITECTURAL DISTORTION: On the CC view medial to the nipple, about 7 cm from the nipple there is an area of questionable architectural distortion. This requires further evaluation with cone compressi on in the CC orientation, tomosynthesis in the CC and 90 mediolateral orientations if possible, righ t breast 90 cone compression mediolateral view in the upper half and lower half of the right breast. If this finding persists, then ultrasound of the right breast would be required for followup. DEVELOPING DENSITY: None. ASYMMETRY: None noted. OTHER: No other significant findings. LEFT BREAST MASSES: No suspicious masses. CALCIFICATIONS: No new or suspicious calcifications. ARCHITECTURAL DISTORTION: None. DEVELOPING DENSITY: None. ASYMMETRY: None noted. OTHER: No other significant findings. Read with the assistance of CAD. .[facility] - R2 Cenova Version 1.3 .[facility] - R2 Cenova Version 1.3 .[facility] - R2 Cenova Version 2.4 .[facility] - R2 Cenova Version 2.4 .[facility] - R2 Stock Control Clerk Version 9.2 IMPRESSION: No mammographic evidence for malignancy left breast. Questionable architectural distortion medial right breast CC view only for which additional diagnosti c mammograms and ultrasound are required BREAST DENSITY: c. The breasts are heterogeneously dense, which may obscure small masses. BIRAD: 0 Incomplete: Needs Additional Imaging Evaluation and/or prior Mammograms for Comparison. RECOMMENDATION: RECOMMENDED FOLLOW-UP: Additional right breast diagnostic mammograms and ultrasound The patient will be contacted for additional imaging. COMMENT: The patient has been notified of the results by letter per MQSA requirements. Additional no tification policies are in place for contacting patient with suspicious or incomplete findings. Quality ID #[id number]: The [employer] recommends an annual screening mammogram for women aged 40 years or over. This facility utilizes a reminder system to ensure that all patients receive reminder letters, and/or direct phone calls for appointments. This includes reminders for routine scr eening mammograms, diagnostic mammograms, or other Breast Imaging Interventions when appropriate. Th is patient will be placed in the appropriate reminder system. The [employer] (ACR) has developed recommendations for screening MRI of the breast s in certain patient populations, to be used in conjunction with mammography. Breast MRI surveillanc e may be appropriate for women with more than 20% lifetime risk of developing breast cancer as deter mined by genetic testing, significant family history of the disease, or history of mantle radiation f or Hodgkins Disease. ACR Practice Guidelines 2008. TECHNICAL DOCUMENTATION: FINDING NUMBER: (1) ASSESSMENT: (1) JOB ID: [id number] [employer]- All Rights Reserved
== END ==
LOC: WI 06:58
DX: Z12.31 Encounter for screening mammogram for malignant neoplasm of breast (principal)
CPT/HCPCS: 77067; G0202

== ENCOUNTER → 2017-08-29 | Outpatient (CLI) | payer OTHER ==
--- NOTE | 2017-08-29 12:37 | RADIOLOGY REPORT (SQ) ---
EXAM DESCRIPTION: MRI ABDOMEN WITHOUT COMPLETED DATE/TIME: 08/29/2017 11:49 am REASON FOR STUDY: R ADRENAL MASS (E27.9) E27.9 DISORDER OF ADRENAL GLAND, UNSPECIFIED COMPARISON: MRI abdomen 02/27/2017 CT abdomen pelvis 11/01/2016, 07/30/2013, 11/19/2010 CT chest 01/22/2010 TECHNIQUE: Noncontrast imaging with attention to the adrenal glands, including in and out of phase T 1 sequences. LIMITATIONS: None. FINDINGS: ADRENAL GLANDS: On the right side, an 18 mm nodule is present. This has several foci of d ecreased signal on the out of phase T1 axial image 13, likely reflecting an at adenoma. This is dorothy lar compared to the MRI 02/27/[address] exam 11/01/2016. Continued periodic surveillance with MRI ev felipa 1 to 2 years is recommended. Left adrenal gland is unremarkable. GALLBLADDER: Dependently layering sludge. No pericholecystic fluid or gallbladder wall thickening LIVER AND BILIARY STRUCTURES: Normal. No ductal dilatation. SPLEEN: Normal. PANCREAS: Normal. Peripancreatic tissues normal. PERITONEUM: No ascites, gross adenopathy or implants. KIDNEYS: No other significant finding. 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 CONTINUED C ROSS-SECTIONAL IMAGING SURVEILLANCE EVERY 1 TO 2 YEARS IS RECOMMENDED TO EXCLUDE GROWTH OR CHANGE TECHNICAL DOCUMENTATION: JOB ID: [id number]- All Rights Reserved
== END ==
LOC: RAD 08:33
DX: E27.9 Disorder of adrenal gland, unspecified (principal)
CPT/HCPCS: 74181

== ENCOUNTER → 2017-09-05 | Outpatient (CLI) | payer OTHER ==
--- NOTE | 2017-09-05 16:21 | WOMENS IMAGING REPORT ---
EXAM DESCRIPTION: RIGHT DIAGNOSTIC MAMMO W/CAD COMPLETED DATE/TIME: 09/05/2017 10:32 am REASON FOR STUDY: UNSPECIFIED LUMP; N63.10 N63.10 UNSPECIFIED LUMP IN THE RIGHT BREAST, UNSPECIFIED CHRIS COMPARISON: 08/16/2017, 12/07/2010 screening mammograms TECHNIQUE: Cone compression craniocaudal and mediolateral oblique images of the right breast recorde d with digital acquisition. Additional right breast 90 mediolateral view LIMITATIONS: None. FINDINGS: BREAST: right MASSES: No suspicious masses. CALCIFICATIONS: No new or suspicious calcifications. ARCHITECTURAL DISTORTION: None. DEVELOPING DENSITY: None. ASYMMETRY: None noted. OTHER: No other significant findings. Read with the assistance of CAD. .[facility] - R2 Cenova Version 1.3 .[facility] - R2 Cenova Version 1.3 .[facility] - R2 Cenova Version 2.4 .[facility] [place] - R2 Cenova Version 2.4 .[facility] - R2 Pipeman Version 9.2 IMPRESSION: No mammographic evidence for malignancy right breast BREAST DENSITY: c. The breasts are heterogeneously dense, which may obscure small masses. BIRAD: 1 Negative. RECOMMENDATION: RECOMMENDED FOLLOW UP: Please continue yearly bilateral screening mammography. Plea se consider bilateral screening tomosynthesis in July 2018 SPECIFIC INTERVENTION/IMAGING/CONSULTATION RECOMMENDED:No additional intervention/ imaging/consultati on needed at this time. COMMUNICATION:Patient notified by letter COMMENT: The patient has been notified of the results by letter per SA requirements. Additional no tification policies are in place for contacting patient with suspicious or incomplete findings. Quality ID #[id number]: The [employer] recommends an annual screening mammogram for women aged 40 years or over. This facility utilizes a reminder system to ensure that all patients receive reminder letters, and/or direct phone calls for appointments. This includes reminders for routine scr eening mammograms, diagnostic mammograms, or other Breast Imaging Interventions when appropriate. Th is patient will be placed in the appropriate reminder system. The [employer] (A[employer]) has developed recommendations for screening MRI of the breast s in certain patient populations, to be used in conjunction with mammography. Breast MRI surveillanc e may be appropriate for women with more than 20% lifetime risk of developing breast cancer as deter mined by genetic testing, significant family history of the disease, or history of mantle radiation f or Hodgkins Disease. ACR Practice Guidelines 2008. TECHNICAL DOCUMENTATION: FINDING NUMBER: (1) ASSESSMENT: (1) JOB ID: [id number] [employer]- All Rights Reserved
== END ==
LOC: WI 09:43
DX: N63.10 Unspecified lump in the right breast, unspecified quadrant (principal)
CPT/HCPCS: G0206-52

== ENCOUNTER → 2017-09-05 | Outpatient (CLI) | payer SELFPAY ==
[2017-09-05 09:31] LABS: ABSOLUTE EOSINOPHILS # (AUTO) 0.1 10^3/uL (0.0-0.6); ABSOLUTE LYMPHOCYTES (AUTO) 2.1 10^3/uL (0.5-4.7); ABSOLUTE MONOCYTES (AUTO) 0.4 10^3/uL (0.1-1.4); ABSOLUTE NEUT (AUTO) 3.2 10^3/uL (1.7-8.2); BASOPHILS % (AUTO) 0.3 % (0-2); EOSINOPHILS % (AUTO) 1.7 % (0-6); HEMATOCRIT 40.2 % (36.0-47.0); HEMOGLOBIN 13.7 g/dL (12.0-15.5); HGB HCT DIFFERENCE 0.9; LYMPHOCYTES % (AUTO) 36.7 % (13-45); MEAN CORPUSCULAR HEMOGLOBIN 30.3 pg (27.0-33.4); MEAN CORPUSCULAR HGB CONC 34.1 g/dL (32.0-36.0); MEAN CORPUSCULAR VOLUME 89 fl (80-97); MONOCYTES % (AUTO) 6.3 % (3-13); RED BLOOD COUNT 4.51 10^6/uL (3.72-5.28); RED CELL DISTRIBUTION WIDTH 13.9 % (11.5-14.0); WHITE BLOOD COUNT 5.8 10^3/uL (4.0-10.5)
[2017-09-05 10:01] LABS: CHOLESTEROL 298.82 mg/dL (0-200); Direct HDL 51 mg/dL (>40); TRIGLYCERIDES 467 mg/dL (<150)
[2017-09-05 10:03] LABS: ALANINE AMINOTRANSFERASE 27 U/L (9-52); ALBUMIN 4.5 g/dL (3.5-5.0); ALKALINE PHOSPHATASE 48 U/L (38-126); ANION GAP 14 (5-19); ASPARTATE AMINO TRANSFERASE 35 U/L (14-36); BILIRUBIN,DIRECT 0.2 mg/dL (0.0-0.4); BILIRUBIN,TOTAL 0.3 mg/dL (0.2-1.3); BLOOD UREA NITROGEN 6 mg/dL (7-20); CALCIUM 9.6 mg/dL (8.4-10.2); CARBON DIOXIDE 23 mmol/L (22-30); CHLORIDE 106 mmol/L (98-107); CREATININE RESULT 0.69 mg/dL (0.52-1.25); GLUCOSE 116 mg/dL (75-110); POTASSIUM 4.2 mmol/L (3.6-5.0); SODIUM 142.6 mmol/L (137-145); TOTAL PROTEIN 7.4 g/dL (6.3-8.2)
[2017-09-05 10:12] LABS: DIRECT LDL 184 mg/dL (<100)
[2017-09-05 10:14] LABS: FREE T3 3.09 pg/mL (2.77-5.27)
[2017-09-05 10:27] LABS: THYROID STIMULATING HORMONE 1.66 uIU/mL (0.47-4.68)
[2017-09-05 10:38] LABS: ADD HIVPANEL? NO; HIV (1 AND 2) ANTIBODY NEGATIVE (NEGATIVE)
[2017-09-06 07:41] LABS: HEPATITIS C VIRUS AB >11.0 s/co ratio (0.0-0.9)
[2017-09-06 09:00] LABS: PROLACTIN 8.3 ng/mL (4.8-23.3)
== END ==
LOC: OD 08:20
PROVIDERS: ATTEND Obstetrics & Gynecology Gynecology
DX: F33.1 Major depressive disorder, recurrent, moderate (principal)
CPT/HCPCS: 36415; 80053; 80061; 83036; 84146; 84439; 84443; 84481; 85025; 86592; 86701; 86803; 86804; 87340

== ENCOUNTER 2017-10-23 08:56 | Emergency (ER) | payer MEDICAID, OTHER ==
[2017-10-23] MEDS ORDERED: ASPIRIN 325 MG TABLET PO ONE (09:35)
[2017-10-23] MEDS ORDERED: HYDROCODONE/ACETAMINOPHEN 5-325 MG TABLET PO ONE (09:35)
--- NOTE | 2017-10-23 09:43 | ER Document Report ---
ED Medical Screen (RME) - General Chief Complaint: Chest Pain Stated Complaint: CHEST PAIN Time Seen by Provider: 10/23/17 09:34 Notes: Patient with intermittent right-sided chest pain and trouble breathing since this weekend. No previous cardiac history or evaluations. No history of DVTs or PEs. No significant cough or congestion. TRAVEL OUTSIDE OF THE [place] IN LAST 30 DAYS: No - Related Data Allergies/Adverse Reactions: No Known Allergies Allergy (Verified 10/23/17 08:58) Past Medical History - Social History Chew tobacco use (# tins/day): No Frequency of alcohol use: Occasional Drug Abuse: None Family history: CVA, Hypertension Renal/ Medical History: Denies: Hx Peritoneal Dialysis Musculoskeltal Medical History: Reports Hx Arthritis - RA Restless leg, Reports Hx Gout, Reports Hx Musculoskeletal Trauma Traumatic Medical History: Reports: Hx Fractures - right toes 4th and 5th Past Surgical History: Reports: Hx Section, Hx Orthopedic Surgery - L wrist cyst - Immunizations Immunizations up to date: Yes Hx Diphtheria, Pertussis, Tetanus Vaccination: Yes Physical Exam - Vital signs Vitals: Temp Pulse Resp BP Pulse Ox 98.4 F 86 18 122/81 99 10/23/17 09:14 10/23/17 09:14 10/23/17 09:14 10/23/17 09:14 10/23/17 09:14 Course - Vital Signs Vital signs: Temp Pulse Resp BP Pulse Ox 98.4 F 86 18 122/81 99 10/23/17 09:14 10/23/17 09:14 10/23/17 09:14 10/23/17 09:14 10/23/17 09:14
--- NOTE | 2017-10-23 09:52 | EKG REPORT ---
SEVERITY:- NORMAL ECG - SINUS RHYTHM : Confirmed by: Tracy Bain 23-Oct-2017 09:51:35
--- NOTE | 2017-10-23 09:52 | EKG REPORT ---
SEVERITY:- NORMAL ECG - SINUS RHYTHM : Confirmed by: Tracy Bain 23-Oct-2017 09:51:30
[2017-10-23] MEDS ORDERED: ONDANSETRON 4 MG TAB.RAPDIS PO ONE (10:05)
--- NOTE | 2017-10-23 10:51 | RADIOLOGY REPORT (SQ) ---
EXAM DESCRIPTION: U/S ABDOMEN LIMITED W/O DOP COMPLETED DATE/TIME: 10/23/2017 10:37 am REASON FOR STUDY: ruq pain COMPARISON: MRI abdomen 08/29/2017 CT abdomen pelvis 11/01/2016 TECHNIQUE: Dynamic and static grayscale images acquired of the abdomen and recorded on PACS. Additio nal selected color Doppler and spectral images recorded. LIMITATIONS: None. FINDINGS: PANCREAS: Midline pancreas unremarkable LIVER: No masses. Echotexture normal. LIVER VASCULATURE: Normal directional flow of the main portal vein and hepatic veins. GALLBLADDER: No stones. Normal wall thickness. No pericholecystic fluid. ULTRASOUND-DETECTED AGUIRRE'S SIGN: Negative. INTRAHEPATIC DUCTS AND COMMON DUCT: CBD and intrahepatic ducts normal caliber. No filling defects. INFERIOR VENA CAVA: Normal flow. AORTA: No aneurysm. RIGHT KIDNEY: Normal size. Normal echogenicity. No solid or suspicious masses. No hydronephrosis. No calcifications. PERITONEAL AND RIGHT PLEURAL SPACE: No ascites or effusions. OTHER: No other significant findings. IMPRESSION: NORMAL RIGHT UPPER QUADRANT ULTRASOUND. TECHNICAL DOCUMENTATION: JOB ID: [id number]- All Rights Reserved
--- NOTE | 2017-10-23 11:04 | RADIOLOGY REPORT (SQ) ---
EXAM DESCRIPTION: CHEST PA/LAT COMPLETED DATE/TIME: 10/23/2017 10:54 am REASON FOR STUDY: ruq pain COMPARISON: Two-view chest 05/18/2016 EXAM PARAMETERS: NUMBER OF VIEWS: two views TECHNIQUE: Digital Frontal and Lateral radiographic views of the chest acquired. RADIATION DOSE: NA LIMITATIONS: none FINDINGS: LUNGS AND PLEURA: No opacities, masses or pneumothorax. No pleural effusion. MEDIASTINUM AND HILAR STRUCTURES: No masses or contour abnormalities. HEART AND VASCULAR STRUCTURES: Heart normal size. No evidence for failure. BONES: No acute findings. HARDWARE: None in the chest. OTHER: No other significant finding. IMPRESSION: NO SIGNIFICANT RADIOGRAPHIC FINDING IN THE CHEST. TECHNICAL DOCUMENTATION: JOB ID: [id number] [employer]- All Rights Reserved
[2017-10-23 12:01] LABS: ABSOLUTE BASOPHILS # (AUTO) 0.1 10^3/uL (0.0-0.2); ABSOLUTE EOSINOPHILS # (AUTO) 0.1 10^3/uL (0.0-0.6); ABSOLUTE LYMPHOCYTES (AUTO) 2.6 10^3/uL (0.5-4.7); ABSOLUTE MONOCYTES (AUTO) 0.5 10^3/uL (0.1-1.4); ABSOLUTE NEUT (AUTO) 4.2 10^3/uL (1.7-8.2); BASOPHILS % (AUTO) 1.9 % (0-2); EOSINOPHILS % (AUTO) 1.2 % (0-6); HEMATOCRIT 39.2 % (36.0-47.0); HEMOGLOBIN 13.1 g/dL (12.0-15.5); LYMPHOCYTES % (AUTO) 34.8 % (13-45); MEAN CORPUSCULAR HEMOGLOBIN 29.8 pg (27.0-33.4); MEAN CORPUSCULAR HGB CONC 33.5 g/dL (32.0-36.0); MEAN CORPUSCULAR VOLUME 89 fl (80-97); MONOCYTES % (AUTO) 6.8 % (3-13); PLATELET COUNT 306 10^3/uL (150-450); RED CELL DISTRIBUTION WIDTH 15.4 % (11.5-14.0); SEGMENTED NEUTROPHILS % (AUTO) 55.3 % (42-78); TOTAL CELLS COUNTED % (AUTO) 100 %; WHITE BLOOD COUNT 7.5 10^3/uL (4.0-10.5)
--- NOTE | 2017-10-23 12:01 | ER Document Report ---
ED Cardiac - General Chief Complaint: Chest Pain Stated Complaint: CHEST PAIN Time Seen by Provider: 10/23/17 09:34 Notes: Patient says she is having pain in the right anterior chest, just to the right of the sternum which started on and was there Monday as well. She awakened from sleep with the pain. It went away on Monday, but returned on Monday. She has never had this before. Recalls no unusual activity or injury or straining of the chest wall area. Has not fallen. Does not feel short of breath. Does hurt for her to take a deep breath. She is had difficulty sleeping as a result of this pain. Denies any nausea or vomiting or abdominal pains. Denies any significant cough or cold or chest congestion. Denies fever. Patient has no history of heart disease. NIDDM. High cholesterol. Neuropathy of the lower extremities. RLS. Smokes about 3 cigarettes a day. TRAVEL OUTSIDE OF THE [place] IN LAST 30 DAYS: No - Related Data Allergies/Adverse Reactions: No Known Allergies Allergy (Verified 10/23/17 08:58) Past Medical History - Social History Smoking Status: Current Every Day Smoker Chew tobacco use (# tins/day): No Frequency of alcohol use: Occasional Drug Abuse: None Family History: Arthritis, CAD, CVA, Hyperlipidemia, Hypertension Patient has suicidal ideation: No Patient has homicidal ideation: No Neurological Medical History: Reports: Other - Has peripheral neuropathy pain in her legs. Also has restless leg syndrome Endocrine Medical History: Reports: Hx Diabetes Mellitus Type 2 Musculoskeltal Medical History: Reports Hx Arthritis - RA Restless leg, Reports Hx Gout, Reports Hx Musculoskeletal Trauma Traumatic Medical History: Reports: Hx Fractures - right toes 4th and 5th Past Surgical History: Reports: Hx Section, Hx Orthopedic Surgery - L wrist cyst - Immunizations Immunizations up to date: Yes Hx Diphtheria, Pertussis, Tetanus Vaccination: Yes Review of Systems - Review of Systems Notes: REVIEW OF SYSTEMS: CONSTITUTIONAL : Denies fever. EENT: Denies eye, ear, nose or mouth or throat pain or other symptoms. CARDIOVASCULAR: See HPI. RESPIRATORY: Denies cough, chest congestion, or shortness of breath. GASTROINTESTINAL: Denies abdominal pain or nausea, vomiting, or diarrhea. GENITOURINARY: Denies difficulty or painful urinating, urinary frequency, blood in urine. MUSCULOSKELETAL: Denies back or neck pain. Denies joint pain or swelling. No pain or swelling of either 1 of her lower legs. SKIN: Denies rash or skin lesions. NEUROLOGICAL: Denies LOC or altered mental status. Denies headache. Denies sensory loss or motor deficits. ALL OTHER SYSTEMS REVIEWED AND NEGATIVE. Physical Exam - Vital signs Vitals: Temp Pulse Resp BP Pulse Ox 98.4 F 86 18 122/81 99 10/23/17 09:14 10/23/17 09:14 10/23/17 09:14 10/23/17 09:14 10/23/17 09:14 Interpretation: Normal - Notes Notes: PHYSICAL EXAMINATION: GENERAL: Well-appearing, in no acute distress. Vital signs are all essentially normal. HEAD: Atraumatic, normocephalic. EYES: Pupils equal round and reactive to light, extraocular movements intact. ENT: oropharynx clear without exudates. Moist mucous membranes. NECK: Normal range of motion, supple. LUNGS: Breath sounds clear and equal bilaterally. Patient has tenderness of the right rib cage adjacent to the right side of the sternum. No swelling and no subcutaneous air present. Patient says that she also has pain into the back on that side. HEART: Regular rate and rhythm without murmurs. ABDOMEN: Soft, nontender. No guarding or rebound. No masses. No bruits heard. BACK: No tenderness throughout entire back. Mild muscular tenderness in the right posterior thoracic muscles. EXTREMITIES: Normal range of motion without pain. Negative Homans bilaterally although the patient does express pain to have her lower legs examined or touched. NEUROLOGICAL: Normal speech, normal gait. Normal sensory, motor, and reflex exams. Awake, alert, and oriented x3. Cranial nerves normal. PSYCH: Normal mood, normal affect. SKIN: Warm, dry, no rashes. Course - Vital Signs Vital signs: Temp Pulse Resp BP Pulse Ox 98.4 F 86 17 118/71 95 10/23/17 09:14 10/23/17 09:14 10/23/17 18:00 10/23/17 17:04 10/23/17 17:04 - Laboratory Result Diagrams: 10/23/17 11:38 10/23/17 11:38 Laboratory results interpreted by me: 10/23/17 10/23/17 10/23/17 11:38 11:38 15:44 RDW 15.4 H Carbon Dioxide 21 L Calcium 10.6 H Ur Leukocyte Esterase SMALL H Discharge - Discharge Clinical Impression: Chest wall pain, Abdominal pain Condition: Stable Disposition: HOME, SELF-CARE Additional Instructions: CHEST PAIN OF UNCLEAR CAUSE: The exact cause of your chest pain isn't clear. Fortunately, there is no evidence of a dangerous medical condition. Further testing may be required to find the source of the pain. Most often, we find that this pain is coming from the chest wall -- the muscles or rib joints in the chest. But chest pain can come from the lung and lung lining, the esophagus, the heart valves or heart lining, and even the stomach or gallbladder. Rest. Eat lightly until the pain is gone. We may prescribe medicine for pain and inflammation. You should call the physician immediately if the pain radiates to the shoulder, jaw or arms; if you start to run a fever or develop a cough; or if you develop shortness of breath, or other new or alarming symptoms. NORMAL EXAM AND WORKUP: At this time, your examination and workup show no significant abnormality. No significant abnormal physical findings were noted. All laboratory, EKG, and imaging (x-ray, CT scans, ultrasound) studies that were ordered show no significant abnormality. Although your examination and all studies that were ordered showed no significant abnormal finding, there are no examinations and no studies that are 100% accurate. There is always the possibility that some abnormality could exist and not be detected with physical examination or within the limits and capabilities of laboratory and other studies. You should return or follow up as you were instructed on your visit today for further evaluation if your symptoms do not resolve. CHEST WALL PAIN: Your chest pain may be coming from the chest wall. This is often caused by straining the muscles or joints in the chest during physical activity, direct trauma, coughing, or vigorous vomiting. Persons with arthritis are especially prone to this type of pain, due to inflammation of the cartilage joints near the breast bone. Occasionally, no cause can be found. Rest from strenuous physical activity. This kind of chest pain is usually made worse by movement of the chest. Depending on the symptoms, we may prescribe medicine for pain, muscle relaxation, and antiinflammatory effects. If the pain is new, and seems to be due to muscle strain, cold packs can help. Otherwise, apply gentle warmth to the painful area for 15 minutes every hour or two. You should call contact the doctor immediately if things change. Further evaluation is needed if you develop a fever or cough, if the nature of the pain changes, or if you become short of breath. ASPIRIN: Aspirin has been shown to have a beneficial effect on blood circulation by reducing the clotting effect of platelets in the blood. These beneficial effects can be achieved by taking just a single baby (81 mg) aspirin a day. It is recommended that any person over the age of forty take a single baby aspirin every day for heart and brain circulation, unless you are allergic to aspirin or have some significant bleeding disorder. It is strongly recommended that people who have proven cardiac or blood circulation disturbances should take a baby aspirin every day. Anxiety The physician feels that some of your health problems are being caused by anxiety. Anxiety affects your health in many ways. Anxiety alone can cause palpitations, sweats, chest pains, abdominal pains, shortness of breath, and headaches. It contributes to ulcer disease, high blood pressure, irritable bowel syndrome, and has been shown to cause flare-ups of many other diseases. Anxiety is not a simple disorder to treat. If the anxiety is due to recent life stresses, you may simply need time to "work through" the changes. If the anxiety is due to an underlying unhappiness with yourself or due to psychiatric disturbance, professional help will be needed. Your physician can refer you for further help if needed. Anti-anxiety medication is occasionally given if the stress is acute or if you are having trouble sleeping. Chronic or frequent use of these medications is not a good idea because the body becomes reliant on it, preventing you from dealing with life's normal stresses. Benzodiazepines You have been given a benzodiazepine medication. Examples of this type of medicine include Valium, Xanax, Librium, Ativan, and Halcion. Benzodiazepines have many uses. Medications of this type are used for insomnia, anxiety, muscle spasms, seizures, and drug and alcohol withdrawal. You may become very drowsy when you first take the medication. You should not drive or operate machinery while under its effects. Do not combine the medication with alcohol, or with any other medication without talking to your doctor. Do not take if without specific instruction from your molding machine setter. Some benzodiazepines may have harmful interactions with oral antifungal medicines such as ketoconazole, itraconazole, and nefazodone. If you are taking an antifungal medicine, discuss this with your doctor before taking benzodiazepines. Ultram Ultram is an excellent drug for pain relief. It is not a narcotic, but it works in a similar way. Ultram can take up to two hours for full effect. Although not addicting, Ultram is best avoided in patients with a history of drug abuse. Ultram should not be used with alcohol, sleeping pills, or narcotics. If you're prone to seizures, Ultram can make you more likely to have a seizure. Ultram can be hazardous when combined with MAO-inhibitor antidepressants (such as Nardil or Parnate). Be sure your doctor is aware of all medicines you are taking. Persons with severe liver or kidney disease should increase the time between doses of Ultram. Discuss this with your doctor if you're uncertain. Side effects of Ultram can include dizziness, nausea, constipation, sleepiness, and itching. (These side effects are also seen with narcotic pain medicines.) Please call your doctor if you have other disturbing effects. FOLLOW-UP CARE: If you have been referred to a physician for follow-up care, call the physician s office for an appointment as you were instructed or within the next two days. If you experience worsening or a significant change in your symptoms, notify the physician immediately or return to the Emergency Department at any time for re-evaluation. Prescriptions: Tramadol HCl [Ultram] 50 mg PO Q6HP PRN #12 tablet PRN Reason: Lorazepam [Ativan] 1 mg PO QIDP PRN #12 tablet PRN Reason:
[2017-10-23 12:09] LABS: ALANINE AMINOTRANSFERASE 41 U/L (9-52); ALBUMIN 4.9 g/dL (3.5-5.0); ALKALINE PHOSPHATASE 49 U/L (38-126); ANION GAP 14 (5-19); ASPARTATE AMINO TRANSFERASE 34 U/L (14-36); BILIRUBIN,DIRECT 0.2 mg/dL (0.0-0.4); BILIRUBIN,TOTAL 0.4 mg/dL (0.2-1.3); BLOOD UREA NITROGEN 7 mg/dL (7-20); CALCIUM 10.6 mg/dL (8.4-10.2); CARBON DIOXIDE 21 mmol/L (22-30); CHLORIDE 106 mmol/L (98-107); GLUCOSE 106 mg/dL (75-110); POTASSIUM 4.1 mmol/L (3.6-5.0); SODIUM 141.3 mmol/L (137-145); TOTAL PROTEIN 8.2 g/dL (6.3-8.2)
[2017-10-23] MEDS ORDERED: PROMETHAZINE HCL 25 MG TABLET PO ONE (12:22)
[2017-10-23] MEDS ORDERED: TRAMADOL HCL 50 MG TABLET PO ONE (12:23)
[2017-10-23] MEDS ORDERED: LORAZEPAM INJ 2 MG/1 ML VIAL IV ONE (13:07)
[2017-10-23] MEDS ORDERED: FENTANYL CITRATE INJ/PF 100 MCG/2 ML AMPUL IV ONE (14:34)
[2017-10-23 16:11] LABS: APPEARANCE,URINE SLIGHTLY-CLOUDY; BILIRUBIN,URINE NEGATIVE (NEGATIVE); COLOR,URINE YELLOW; GLUCOSE, URINE NEGATIVE (NEGATIVE); KETONES,URINE NEGATIVE (NEGATIVE); LEUKOCYTE ESTERASE,URINE SMALL (NEGATIVE); NITRITE,URINE NEGATIVE (NEGATIVE); PROTEIN,URINE NEGATIVE (NEGATIVE); URINE SPECIFIC GRAVITY 1.029; UROBILINOGEN,URINE NEGATIVE mg/dL (<2.0)
--- NOTE | 2017-10-23 17:56 | RADIOLOGY REPORT (SQ) ---
EXAM DESCRIPTION: CTA CHEST COMPLETED DATE/TIME: 10/23/2017 5:38 pm REASON FOR STUDY: Pain RUQ, right anterior chest into thoracic spine COMPARISON: None. FINDINGS: Please see combined report for chest, abdomen and pelvis from same date. TECHNICAL DOCUMENTATION: JOB ID: [id number]
--- NOTE | 2017-10-23 18:01 | RADIOLOGY REPORT (SQ) ---
EXAM DESCRIPTION: CT ABD/PELVIS WITH IV ORAL COMPLETED DATE/TIME: 10/23/2017 5:37 pm REASON FOR STUDY: Pain RUQ, right anterior chest into thoracic spine COMPARISON: None. RENAL FUNCTION: Creatinine 0.67 TECHNIQUE: CT scan of the chest performed using helical scanning technique with dynamic intravenous contrast injection. Angiographic technique with 3D MIPS. Images reviewed with lung, soft tissue and bone windows. Reconstructed coronal and sagittal MPR images reviewed. All images stored on PACS. CT scan of the abdomen and pelvis performed with intravenous and with oral contrastusing helical scan rosemarie technique with dynamic intravenous contrast injection. Images reviewed with lung, soft tissue a nd bone windows. Reconstructed coronal and sagittal MPR images reviewed. Delayed images for evaluat ion of the urinary system also acquired and evaluated. All images stored on PACS. All CT scanners at this facility use dose modulation, iterative reconstruction, and/or weight based d osing when appropriate to reduce radiation dose to as low as reasonably achievable (ALARA). [facility]: Dose Right [facility]: CareDose [facility]: Dose Right [facility]: Teradose 4D [facility]: [place] Direct RADIATION DOSE: CT Rad equipment meets quality standard of care and radiation dose reduction techniq ues were employed. CTDIvol: 17.0 - 23.2 mGy. DLP: 2733 mGy-cm. . LIMITATIONS: None. FINDINGS: CHEST: LUNGS AND PLEURA: Dependent subsegmental atelectasis. Mild motion artifact. Otherwise clear per HILAR AND MEDIASTINAL STRUCTURES: No mass or adenopathy. HEART AND VASCULAR STRUCTURES: Normal heart size. No pericardial effusion. No gross aortic aneurysm or dissection. No suggestion of pulmonary embolus. This is allowing for some limiting motion artif act in the lung bases. HARDWARE: None. THYROID AND OTHER SOFT TISSUES: No masses. No adenopathy. BONES: No significant finding. OTHER: No other significant finding. ABDOMEN AND PELVIS: LIVER: Normal size. No masses. No dilated ducts. SPLEEN: Normal size. No focal lesions. PANCREAS: No masses. No significant calcifications. No adjacent inflammation or peripancreatic fluid collections. Pancreatic duct not dilated. GALLBLADDER: No identified stones by CT criteria. No inflammatory changes to suggest cholecystitis. ADRENAL GLANDS: Chronic nodule right adrenal. Lack of change consistent with benign etiology such as adenoma. Left adrenal normal. RIGHT KIDNEY AND URETER: No solid masses. No significant calcification. No hydronephrosis or hydroure ter. LEFT KIDNEY AND URETER: No solid masses. No significant calcification. No hydronephrosis or hydrouret er. AORTA AND VESSELS: No aneurysm. No dissection. Renal arteries, SMA, celiac without stenosis. RETROPERITONEUM: No retroperitoneal adenopathy, hemorrhage or masses. BOWEL AND PERITONEAL CAVITY: No masses or inflammatory changes. No free fluid or peritoneal masses. APPENDIX: Not visualized. ABDOMINAL WALL: No masses. No hernias. PELVIS: Enlarged fibroid uterus. Probably minimally septated 2.8 cm cyst in the right adnexa. Not s een in 2017. BONES: No significant or acute findings. OTHER: No other significant finding. IMPRESSION: 1. No evidence of pulmonary embolus or aortic pathology. No lung infiltrates. 2. No ac douglas abdominal abnormality. 3. Pelvic findings include fibroid uterus and potential cyst in the right ovary. If the patient has pelvic symptoms, ultrasound of the pelvis may be warranted. NORMAL CT OF THE ABDOMEN AND PELVIS WITH ORAL AND INTRAVENOUS CONTRAST. TECHNICAL DOCUMENTATION: JOB ID: [id number] Quality ID # [id number]: Final reports with documentation of one or more dose reduction techniques (e.g., Au tomated exposure control, adjustment of the mA and/or kV according to patient size, use of iterative reconstruction technique) 2010 [employer]- All Rights Reserved
[2017-10-23 18:58] VITALS: BP 118/71
== END 2017-10-23 19:04 | disposition home or self-care (01) ==
LOC: ER 08:56
DX: R07.9 Chest pain, unspecified (principal); R10.9 Unspecified abdominal pain; E11.9 Type 2 diabetes mellitus without complications; F17.200 Nicotine dependence, unspecified, uncomplicated
CPT/HCPCS: 93005; 99285; 96374; 96375; 36415; 85025; 80053; 81001; 84484; 71046; 76705; 71275; 74177; 93010; S0119; J3010; J2060; J3490

== ENCOUNTER → 2017-11-17 | Outpatient (CLI) | payer MEDICAID ==
--- NOTE | 2017-11-17 14:16 | RADIOLOGY REPORT (SQ) ---
EXAM DESCRIPTION: TIB FIB BILAT 2 VIEWS COMPLETED DATE/TIME: 11/17/2017 1:07 pm REASON FOR STUDY: LEG PAIN (M79.669), EDEMA (R60.9) M79.669 PAIN IN UNSPECIFIED LOWER LEG R60.9 ED TAURUS, UNSPECIFIED COMPARISON: None. NUMBER OF VIEWS: Two views. TECHNIQUE: Two radiographic images acquired of the left tibia and fibula to include the knee and ank le in at least one projection. LIMITATIONS: None. FINDINGS: BONES: No acute fracture or bony abnormality identified. SOFT TISSUES: No obvious swelling or foreign body. OTHER: No other significant finding. IMPRESSION: Normal bilateral tibia and fibulas. TECHNICAL DOCUMENTATION: JOB ID: [id number] 2010 [employer]- All Rights Reserved Reading location - IP/workstation name: [email or web address]
== END ==
LOC: RAD 12:48
PROVIDERS: ATTEND Student in an Organized Health Care Education/Training Program
DX: M79.662 Pain in left lower leg (principal); M79.661 Pain in right lower leg; R60.9 Edema, unspecified

== ENCOUNTER → 2017-11-23 | Outpatient (CLI) | payer MEDICAID ==
--- NOTE | 2017-11-23 12:36 | RADIOLOGY REPORT (SQ) ---
EXAM DESCRIPTION: MRI ABDOMEN COMBO COMPLETED DATE/TIME: 11/23/2017 12:19 pm REASON FOR STUDY: ADRENAL MASS E27.9 DISORDER OF ADRENAL GLAND, UNSPECIFIED I70.218 ATHSCL [place] [facility], [facility] M79.674 PAIN IN RIGHT TOE(S) COMPARISON: 08/29/2017 and 02/27/2017. TECHNIQUE: Multiplanar multisequence imaging performed without and with contrast including sagittal, axial and coronal T2, axial T1, axial gradient fat sat T1, axial, sagittal and coronal fat sat T1 po st contrast. CONTRAST TYPE AND DOSE: 20 mL Prohance. RENAL FUNCTION: GFR > 60. LIMITATIONS: None. FINDINGS: LIVER: Hepatomegaly. Overall length 23 cm. Diffuse fatty infiltration. No masses. No di lated ducts. CBD normal. SPLEEN: Normal size. No focal lesions. PANCREAS: No masses. No adjacent inflammation or peripancreatic fluid collections. Pancreatic duct no t dilated. GALLBLADDER: No masses. No stones. No gallbladder wall thickening or pericholecystic fluid. ADRENAL GLANDS: Stable right adrenal mass measuring 1.0 x 1.8 cm. Left adrenal gland normal. RIGHT KIDNEY AND URETER: No masses. No hydronephrosis. LEFT KIDNEY AND URETER: No masses. No hydronephrosis. AORTA AND VESSELS: No aneurysm. No dissection. Renal arteries, SMA, celiac without stenosis. RETROPERITONEUM: No retroperitoneal adenopathy, hemorrhage or masses. BOWEL: No visualized masses. No inflammation. No significant dilatation. ABDOMINAL WALL AND PERITONEUM: No hernias. No free fluid. BONES: No acute or significant findings. OTHER: No other significant finding. IMPRESSION: 1. STABLE RIGHT ADRENAL MASS. 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 2. HEPATOMEGALY WITH DIFFUSE FATTY INFILTRATION OF THE LIVER. NO FOCAL LESIONS. 3. NO OTHER SIGNIFICANT FINDINGS. TECHNICAL DOCUMENTATION: JOB ID: [id number] [employer]- All Rights Reserved Reading location - IP/workstation name: [email or web address]EDS AT THE [facility]
--- NOTE | 2017-11-23 13:03 | RADIOLOGY REPORT (SQ) ---
EXAM DESCRIPTION: FOOT BILATERAL 3 VIEWS COMPLETED DATE/TIME: 11/23/2017 9:31 am REASON FOR STUDY: CHRONIC FEET PAIN E27.9 DISORDER OF ADRENAL GLAND, UNSPECIFIED I70.218 ATHSCL NA TIVE ARTERIES OF EXTRM W INTR[facility], OT M79.674 PAIN IN RIGHT TOE(S) COMPARISON: None. NUMBER OF VIEWS: Three views. TECHNIQUE: AP, lateral and oblique without weight bearing radiographic images acquired of the right and left foot. LIMITATIONS: None. FINDINGS: MINERALIZATION: Normal. BONES: No acute fracture or dislocation. Hallux valgus and bunion deformity of the great toe, right greater than left. No worrisome bone lesions. No significant osteophytes. JOINTS: No erosions. No melissa-articular osteopenia. No chondrocalcinosis. SOFT TISSUES: No swelling. No calcifications. OTHER: No other significant finding. IMPRESSION: STABLE CHRONIC CHANGES. NO ACUTE FINDINGS. TECHNICAL DOCUMENTATION: JOB ID: [id number] [employer]- All Rights Reserved Reading location - IP/workstation name: [facility]
--- NOTE | 2017-11-24 07:49 | XCELERA REPORT ---
[address] [address] Tel: [phone] Fax: [phone] Lower Extremity Arterial Evaluation Name: THAIS HERNANDEZ Age: 52 yrs Gender: Female : 1965 Patient Status: Outpatient Patient Location: RAD Study Date: 11/23/2017 12:02 PM Procedure: Ankle brachial indicies performed. Reason For Study: CLAUDICATION Ordering Physician: JARON ANAND Performed By: Keshia Kaplan Right Side Arterial Evaluation DEVON :1.11. Left Side Arterial Evaluation DEVON :1.12. Interpretation Summary Normal DEVON's and waveforms. : JARON ANAND > Js Banerjee
== END ==
LOC: RAD 09:07
PROVIDERS: ATTEND Student in an Organized Health Care Education/Training Program
DX: E27.9 Disorder of adrenal gland, unspecified (principal); M79.671 Pain in right foot; I70.218 Atherosclerosis of native arteries of extremities with intermittent claudication, other extremity; K76.0 Fatty (change of) liver, not elsewhere classified; R16.0 Hepatomegaly, not elsewhere classified
CPT/HCPCS: 93922 ×2; 74183; 73630; A9576; J3490

== ENCOUNTER 2017-11-29 14:18 | Emergency (ER) | payer MEDICAID ==
[2017-11-29 14:39] VITALS: BP 112/85
[2017-11-29] MEDS ORDERED: HYDROCODONE/ACETAMINOPHEN 5-325 MG TABLET PO ONE (15:00)
[2017-11-29] MEDS ORDERED: IBUPROFEN 600 MG TABLET PO ONE (15:00)
[2017-11-29 15:49] LABS: ABSOLUTE BASOPHILS # (AUTO) 0.1 10^3/uL (0.0-0.2); ABSOLUTE EOSINOPHILS # (AUTO) 0.1 10^3/uL (0.0-0.6); ABSOLUTE LYMPHOCYTES (AUTO) 1.7 10^3/uL (0.5-4.7); ABSOLUTE MONOCYTES (AUTO) 0.5 10^3/uL (0.1-1.4); ABSOLUTE NEUT (AUTO) 5.5 10^3/uL (1.7-8.2); BASOPHILS % (AUTO) 1.1 % (0-2); EOSINOPHILS % (AUTO) 1.1 % (0-6); HEMATOCRIT 38.2 % (36.0-47.0); HEMOGLOBIN 13.3 g/dL (12.0-15.5); LYMPHOCYTES % (AUTO) 21.8 % (13-45); MEAN CORPUSCULAR HEMOGLOBIN 31.3 pg (27.0-33.4); MEAN CORPUSCULAR HGB CONC 34.8 g/dL (32.0-36.0); MEAN CORPUSCULAR VOLUME 90 fl (80-97); MONOCYTES % (AUTO) 6.5 % (3-13); PLATELET COUNT 268 10^3/uL (150-450); RED BLOOD COUNT 4.25 10^6/uL (3.72-5.28); RED CELL DISTRIBUTION WIDTH 14.5 % (11.5-14.0); SEGMENTED NEUTROPHILS % (AUTO) 69.5 % (42-78); TOTAL CELLS COUNTED % (AUTO) 100 %
[2017-11-29 15:54] LABS: APPEARANCE,URINE CLEAR; BILIRUBIN,URINE NEGATIVE (NEGATIVE); COLOR,URINE YELLOW; GLUCOSE, URINE NEGATIVE (NEGATIVE); KETONES,URINE NEGATIVE (NEGATIVE); LEUKOCYTE ESTERASE,URINE NEGATIVE (NEGATIVE); NITRITE,URINE NEGATIVE (NEGATIVE); PROTEIN,URINE NEGATIVE (NEGATIVE); URINE SPECIFIC GRAVITY 1.021; UROBILINOGEN,URINE NEGATIVE mg/dL (<2.0)
[2017-11-29 16:08] LABS: ALANINE AMINOTRANSFERASE 27 U/L (9-52); ALBUMIN 4.6 g/dL (3.5-5.0); ALKALINE PHOSPHATASE 52 U/L (38-126); ANION GAP 16 (5-19); ASPARTATE AMINO TRANSFERASE 36 U/L (14-36); BILIRUBIN,DIRECT 0.3 mg/dL (0.0-0.4); BILIRUBIN,TOTAL 0.4 mg/dL (0.2-1.3); BLOOD UREA NITROGEN 5 mg/dL (7-20); CARBON DIOXIDE 18 mmol/L (22-30); CHLORIDE 102 mmol/L (98-107); GLUCOSE 117 mg/dL (75-110); POTASSIUM 3.9 mmol/L (3.6-5.0); SODIUM 136.4 mmol/L (137-145); TOTAL PROTEIN 7.4 g/dL (6.3-8.2); URIC ACID 9.6 mg/dL (2.5-7.5)
--- NOTE | 2017-11-29 16:47 | ER Document Report ---
ED General - General Chief Complaint: Leg Pain Stated Complaint: RIGHT HAND PAIN, SWELLING Time Seen by Provider: 11/29/17 15:00 Mode of Arrival: Ambulatory Information source: Patient Notes: Patient presents with right wrist pain. She states her wrist is swollen and tender. She states it hurts worse with movement and is better with rest. The pain does radiate up her right arm. It is constant and moderate. It is throbbing. She also states that she has pain throughout the whole right side of her body. She states she does have a history of gout and has had it in her toes before but she has never had it in her wrist. TRAVEL OUTSIDE OF THE [place] IN LAST 30 DAYS: No - Related Data Allergies/Adverse Reactions: No Known Allergies Allergy (Verified 11/29/17 14:18) Past Medical History - General Information source: Patient - Social History Smoking Status: Current Every Day Smoker Chew tobacco use (# tins/day): No Frequency of alcohol use: Rare Drug Abuse: None Family History: Arthritis, CAD, CVA, Hyperlipidemia, Hypertension Patient has suicidal ideation: No Patient has homicidal ideation: No Endocrine Medical History: Reports: Hx Diabetes Mellitus Type 2 Renal/ Medical History: Denies: Hx Peritoneal Dialysis Musculoskeltal Medical History: Reports Hx Arthritis - RA Restless leg, Reports Hx Gout, Reports Hx Musculoskeletal Trauma Traumatic Medical History: Reports: Hx Fractures - right toes 4th and 5th Past Surgical History: Reports: Hx Section, Hx Orthopedic Surgery - L wrist cyst - Immunizations Immunizations up to date: Yes Hx Diphtheria, Pertussis, Tetanus Vaccination: Yes Review of Systems - Review of Systems Constitutional: denies: Chills, Fever Cardiovascular: denies: Chest pain, Palpitations Respiratory: denies: Cough, Short of breath -: Yes All other systems reviewed and negative Physical Exam - Vital signs Vitals: Temp Pulse Resp BP Pulse Ox 99.5 F 97 20 112/85 97 11/29/17 14:36 11/29/17 14:36 11/29/17 14:36 11/29/17 14:36 11/29/17 14:36 Interpretation: Normal - General General appearance: Appears well, Alert - HEENT Head: Normocephalic, Atraumatic Eyes: Normal Pupils: PERRL - Respiratory Respiratory status: No respiratory distress Chest status: Nontender Breath sounds: Normal Chest palpation: Normal - Cardiovascular Rhythm: Regular Heart sounds: Normal auscultation Murmur: No - Abdominal Inspection: Normal Distension: No distension Bowel sounds: Normal Tenderness: Nontender Organomegaly: No organomegaly - Back Back: Normal, Nontender - Extremities General upper extremity: Tender, Edema - Patient's right wrist has some mild diffuse swelling consistent with a mild effusion. There is slightly increased temperature and some mild erythema. She does have decreased range of motion. Exam does appear consistent with gout., Normal color, Normal temperature General lower extremity: Normal inspection, Nontender, Normal color, Normal ROM , Normal temperature, Normal weight bearing. No: Nagi's sign - Neurological Neuro grossly intact: Yes Cognition: Normal Orientation: AAOx4 [place] Coma Scale Eye Opening: Spontaneous [place] Coma Scale Verbal: Oriented [place] Coma Scale Motor: Obeys Commands Shidler Coma Scale Total: 15 Speech: Normal Motor strength normal: LUE, RUE, LLE, RLE Sensory: Normal - Psychological Associated symptoms: Normal affect, Normal mood - Skin Skin Temperature: Warm Skin Moisture: Dry Skin Color: Normal Course - Vital Signs Vital signs: Temp Pulse Resp BP Pulse Ox 99.5 F 97 20 112/85 97 11/29/17 14:36 11/29/17 14:36 11/29/17 14:36 11/29/17 14:36 11/29/17 14:36 - Laboratory Result Diagrams: 11/29/17 15:35 11/29/17 15:35 Laboratory results interpreted by me: 11/29/17 11/29/17 15:35 15:35 RDW 14.5 H Sodium 136.4 L Carbon Dioxide 18 L BUN 5 L Glucose 117 H Uric Acid 9.6 H Discharge - Discharge Clinical Impression: Acute gout Qualifiers: Gout site: wrist Encounter type: initial encounter Laterality: right Condition: Stable Disposition: HOME, SELF-CARE Instructions: Gout ([facility]) Prescriptions: Hydrocodone/Acetaminophen [[place] 5-325 mg Tablet] 1 tab PO Q6 PRN 5 Days #15 tablet PRN Reason: Forms: Return to Work
== END 2017-11-29 17:17 | disposition home or self-care (01) ==
LOC: ER 14:18
DX: M10.9 Gout, unspecified (principal); M25.531 Pain in right wrist; M79.604 Pain in right leg; M79.89 Other specified soft tissue disorders; F17.200 Nicotine dependence, unspecified, uncomplicated; E11.9 Type 2 diabetes mellitus without complications
CPT/HCPCS: 99283; 36415; 84550; 85025; 80053; 81001; L3908; J3490

== ENCOUNTER 2017-11-30 10:13 | Emergency (ER) | payer MEDICAID ==
[2017-11-30 10:19] VITALS: BP 136/70
[2017-11-30] MEDS ORDERED: INDOMETHACIN 50 MG CAPSULE PO ONE (10:51)
--- NOTE | 2017-11-30 10:51 | ER Document Report ---
HPI - HPI Pain Level: 5 Notes: Patient is a 52-year-old female with a history of gout who presents to the ED complaining of continued pain in her right wrist her feet bilaterally as well as her left elbow. Patient states that she does have peripheral neuropathy which causes her pain in her feet and has been ongoing for a couple weeks. Patient states that her pain in the right wrist and left elbow began over the last couple days without any injury. Patient states that she feels that this is another gout attack. Patient states that she has had steroids in the past, but recently has been placed on metformin and is not supposed to take steroids anymore. Patient was evaluated yesterday and had a high uric acid level, even though that is not diagnostic of acute gout. Her other blood work was unremarkable. Patient states that she was given a prescription for [place] yesterday, but brought the prescription back today because she had one while she was in the emergency department yesterday which made her itch so she did not want to fill it. Patient does have an appointment set up with her primary care doctor tomorrow. She is still eating and drinking without any difficulties. She is urinating normally and having normal bowel movements. She denies any drug allergies. Patient does admit to smoking but denies IV drug use. Denies any headache, fever, neck pain, URI, sore throat, chest pain, palpitations, syncope, cough, shortness of breath, wheeze, dyspnea, abdominal pain, nausea/vomiting/diarrhea, urinary retention, dysuria, hematuria, loss of control of bowel or bladder, numbness/tingling, saddle anesthesia, muscle paralysis/weakness, or rash. No renal disease, h/o ulcers, or on any blood thinning medication. - ROS Systems Reviewed and Negative: Yes All other systems reviewed and negative - CONSTITUTIONAL Constitutional: DENIES: Fever - REPRODUCTIVE Reproductive: DENIES: : - MUSCULOSKELETAL Musculoskeletal: REPORTS: Extremity pain - R wrist/generalized joints Past Medical History - Social History Smoking Status: Current Every Day Smoker Chew tobacco use (# tins/day): No Frequency of alcohol use: Occasional Drug Abuse: None Family History: Arthritis, CAD, CVA, Hyperlipidemia, Hypertension Patient has suicidal ideation: No Patient has homicidal ideation: No Endocrine Medical History: Reports: Hx Diabetes Mellitus Type 2 - w/neuropathy Renal/ Medical History: Denies: Hx Peritoneal Dialysis Musculoskeltal Medical History: Reports Hx Arthritis - RA Restless leg, Reports Hx Gout, Reports Hx Musculoskeletal Trauma Traumatic Medical History: Reports: Hx Fractures - right toes 4th and 5th Past Surgical History: Reports: Hx Section, Hx Orthopedic Surgery - L wrist cyst - Immunizations Immunizations up to date: Yes Hx Diphtheria, Pertussis, Tetanus Vaccination: Yes Vertical Provider Document - CONSTITUTIONAL Agree With Documented VS: Yes Notes: PHYSICAL EXAMINATION: GENERAL: Well-appearing, well-nourished and in no acute distress. Pt tearful initially during interview, but pt then acted like she was not in a lot of discomfort after a few minutes of talking with her. LUNGS: Breath sounds clear to auscultation bilaterally and equal. No wheezes rales or rhonchi. HEART: Regular rate and rhythm without murmurs, rubs, gallops. Musculoskeletal: FROM to passive/active. Strength 5+/5. No obvious swelling, warmth, or erythema to rt wrist/left elbow. + mild tenderness to light touch of the rt wrist and left elbow. No gross deformity. Extremities: No cyanosis, clubbing, or edema b/l. Peripheral pulses 2+. Capillary refill less than 3 seconds. NEUROLOGICAL: Normal speech, normal gait. Normal sensory, motor exams PSYCH: Normal mood, normal affect. SKIN: Warm, Dry, normal turgor, no rashes or lesions noted. - INFECTION CONTROL TRAVEL OUTSIDE OF THE [place] IN LAST 30 DAYS: No - RESPIRATORY O2 Sat by Pulse Oximetry: 99 Course - Re-evaluation Re-evalutation: 11/30/17 10:58 Patient is an afebrile, well-hydrated, 52-year-old female who presents to the ED with right wrist and left elbow pain, suspect gout. Vitals are acceptable. PE is otherwise unremarkable for any focal neurological deficits, neurovascular compromise, obvious tendon/ligament rupture, obvious fracture/dislocation, septic joint. No labs or imaging warranted at this time based on H&P. Patient is nontoxic-appearing and in no acute distress. Patient is a diabetic without renal disease, history of ulcerations, or being on any blood thinning medication. I will send her home with a prescription for indomethacin with the first dose given p.o. while in the ED today. Recommend conservative measures for symptoms. Keep appointment tomorrow with your PCM. Consider consult orthopedics/physical therapy. Return to the ED with any worsening/concerning symptoms otherwise as reviewed discharge. Patient is in agreement. - Vital Signs Vital signs: Temp Pulse Resp BP Pulse Ox 98.7 F 96 19 136/70 H 99 11/30/17 10:18 11/30/17 10:18 11/30/17 10:18 11/30/17 10:18 11/30/17 10:18 Discharge - Discharge Clinical Impression: Gout Qualifiers: Gout site: wrist Gout etiology: unspecified cause Chronicity: acute Laterality : right Qualified Code(s): M10.9 - Gout, unspecified Condition: Stable Disposition: HOME, SELF-CARE Instructions: Gout ([facility]), Gout Diet ([facility]) Additional Instructions: Rest, Ice, Compression, Elevation Use splint as directed Tylenol/ibuprofen as needed Light stretches daily Strength exercises as able Moist heat and massage may help F/u with your PCP in 3-5 days for a recheck Consider consult(s) with Orthopedics/physical therapy for ongoing/worsening symptoms Return to the ED with any worsening symptoms and/or development of fever, headache, chest pain, palpitations, syncope, shortness of breath, trouble breathing, abdominal pain, n/v/d, muscle weakness/paralysis, numbness/tingling, swelling, redness, or other worsening symptoms that are concerning to you. Prescriptions: Indomethacin [Indocin 50 mg Capsule] 50 mg PO TID #15 capsule Forms: Elevated Blood Pressure, Smoking Cessation Education Referrals: [facility] [Provider Group] - Follow up as needed
[2017-11-30] MEDS ORDERED: HYDROCODONE/ACETAMINOPHEN 5-325 MG (6 TAB/ER DISP) PO PRN (11:19)
== END 2017-11-30 10:58 | disposition home or self-care (01) ==
LOC: ER 10:13
DX: M10.9 Gout, unspecified (principal); E11.40 Type 2 diabetes mellitus with diabetic neuropathy, unspecified; F17.200 Nicotine dependence, unspecified, uncomplicated
CPT/HCPCS: 99283; J3490

== ENCOUNTER 2017-12-08 09:45 | Outpatient (CLI) | payer MEDICAID ==
[~2017-12-08 09:45] MED LIST changes: -DIAZEPAM 5 MG TABLET ONE; +FERRIC CARBOXYMALTOSE 750 MG in NORMAL SALINE 250 ML IV PRN; +NORMAL SALINE 250 ML IV PRN
[2017-12-08 10:58] VITALS: BP 122/78
== END 2017-12-08 11:35 | disposition home or self-care (01) ==
LOC: II 09:45 → 5TH 09:52 → II 11:35
PROVIDERS: ATTEND Internal Medicine Hematology & Oncology
PROC: 3E033GC Introduction of Other Therapeutic Substance into Peripheral Vein, Percutaneous Approach (ICD-10-PCS; principal; 2017-12-08)
DX: D50.9 Iron deficiency anemia, unspecified (principal); K90.9 Intestinal malabsorption, unspecified
CPT/HCPCS: 96365; J7050; J1439

== ENCOUNTER 2018-01-04 14:06 | Emergency (ER) | payer MEDICAID ==
[2018-01-04] MEDS ORDERED: ONDANSETRON HCL INJ/PF 4 MG/2 ML SDV IV ONE (15:00)
[2018-01-04] MEDS ORDERED: MORPHINE SULFATE 10 MG/ML INJ IV ONE (15:00)
--- NOTE | 2018-01-04 15:03 | ER Document Report ---
ED Hand/Wrist Injury - General Chief Complaint: Wrist Pain Stated Complaint: WRIST PAIN Time Seen by Provider: 01/04/18 14:30 Mode of Arrival: Ambulatory Information source: Patient TRAVEL OUTSIDE OF THE [place] IN LAST 30 DAYS: No - HPI Patient complains to provider of: Right wrist pain Injury to: Wrist Notes: Patient is here with complaints of right wrist pain. The patient has had pain for approximately 1 month. She states that over the last few days the pain has gotten significantly worse. She was initially taking [place] was seen by her primary care doctor over the last few days and was switched to Percocet tens. She was also placed on antibiotics in case symptoms are related to an infection. She states the pain today is significantly worse and the swelling has worsened. She does report having a fever yesterday and today. She denies any numbness, tingling, weakness. She states that she cannot move her wrist or her fingers at all without significant pain. She denies any injury to this wrist. No rash. No abdominal pain. She does have a history of diabetes. She denies any other complaints at this time. - Related Data Allergies/Adverse Reactions: No Known Allergies Allergy (Verified 11/29/17 14:18) Past Medical History - Social History Smoking Status: Current Every Day Smoker Chew tobacco use (# tins/day): No Frequency of alcohol use: None Drug Abuse: None Family History: Arthritis, CAD, CVA, Hyperlipidemia, Hypertension Patient has suicidal ideation: No Patient has homicidal ideation: No Endocrine Medical History: Reports: Hx Diabetes Mellitus Type 2 - w/neuropathy Renal/ Medical History: Denies: Hx Peritoneal Dialysis Musculoskeltal Medical History: Reports Hx Arthritis - RA Restless leg, Reports Hx Gout, Reports Hx Musculoskeletal Trauma Traumatic Medical History: Reports: Hx Fractures - right toes 4th and 5th Past Surgical History: Reports: Hx Section, Hx Orthopedic Surgery - L wrist cyst - Immunizations Immunizations up to date: Yes Hx Diphtheria, Pertussis, Tetanus Vaccination: Yes Review of Systems - Review of Systems -: Yes All other systems reviewed and negative Physical Exam - Vital signs Vitals: Temp Pulse Resp BP Pulse Ox 97.8 F 106 H 20 139/95 H 98 01/04/18 14:16 01/04/18 14:16 01/04/18 14:16 01/04/18 14:16 01/04/18 14:16 - Notes Notes: GENERAL: alert, cooperative, nontoxic, no distress. HEAD: normocephalic, atraumatic EYES: conjunctiva pink without discharge, no external redness or swelling. EARS: no external swelling, no external redness NOSE: atraumatic, no external swelling MOUTH/THROAT: mucous membranes moist and pink, posterior pharynx without erythema, swelling, exudate. No trismus or drooling. NECK: soft, supple, full range of motion, no meningismus. CHEST: no distress, lungs clear and equal throughout. No wheezing, rales, rhonchi. CARDIAC: regular rate and rhythm, no murmur, normal capillary refill, normal pulses. No peripheral edema noted. ABDOMEN: Soft, nontender. BACK: full range of motion, no CVA tenderness. EXTREMITIES: Swelling to the right wrist. Limited range of motion of the right wrist due to pain. Tenderness to palpation of the entire right wrist. Mild redness and increased warmth to touch. Limited range of motion of the hand. Normal pulse and sensation. Normal cap refill. NEURO: alert and oriented x 3, no focal deficits, full range of motion of all extremities. PYSCH: appropriate mood, affect. Patient is cooperative. SKIN: pink, warm, dry, no rash. Course - Re-evaluation Re-evalutation: 01/04/18 17:05 Patient is here with complaints of right wrist pain. The pain is been present for about a month but has gotten significantly worse over the last few days. She was seen by her primary care doctor 2 days ago and was started on doxycycline for possible infection. She had blood work drawn at her primary care doctor's office today but her pain seemed to be getting significantly worse despite being on Percocet and she was instructed to come the emergency department. In reviewing her labs from her family practice visit, her white count was 9.1, ESR is 35, CRP is 81.3. X-ray today shows no acute findings. She is afebrile here and nontoxic appearing. Patient is extremely hard IV stick , therefore I was unable to establish IV access on the patient. Blood work was drawn and obtained by the lab. She will be given IM pain medication. I discussed the case with Dr. Felder of orthopedics, his recommendation was to perform a joint aspiration splint the patient place her on indomethacin and have her follow-up with him in the office tomorrow. 01/04/18 18:15 Patient is nontoxic appearing with stable vitals. She is here with complaints of right wrist pain for a month that got dramatically worse over the last several days. She reports having a fever, she is afebrile here. She was seen by her primary care doctor 2 days and was started on doxycycline. She had lab work drawn today. She is noted to have a normal white blood cell count with a slightly elevated ESR and CRP. X-ray shows no acute findings. I discussed the case with Dr. Felder who wanted me to obtain joint fluid and send it to the lab. He recommended placing the patient on Indocin and having her follow-up in the office tomorrow. He recommended placing the patient in a splint. Patient was placed in a volar splint. She was given a dose of indomethacin here in the emergency department. I was only able to obtain enough fluid for culture. This is currently in the lab and pending at this time. Patient does not appear septic she has a normal lactate. Her vital signs are all stable. Differentials would certainly include a joint infection, although this seems to be less likely due to the fact that the patient has a long history of gout. She is on allopurinol, but this would not help with an acute gout flare. She can be discharged home at this time. The patient is noted to have elevated blood pressure during today's emergency department visit. The patient was informed of this finding. The patient was instructed that this may be related to pre-hypertension and requires further evaluation with a primary care provider. The patient has no hypertensive symptoms at this time. The patient's emergency department workup and current diagnosis were explained to the patient and or family. Follow-up instructions were provided. Medications if prescribed were discussed. Instructions for when to return to the emergency department including specific worrisome symptoms were discussed with the patient and/or family. - Vital Signs Vital signs: Temp Pulse Resp BP Pulse Ox 97.8 F 106 H 20 139/95 H 98 01/04/18 14:16 01/04/18 14:16 01/04/18 14:16 01/04/18 14:16 01/04/18 14:16 - Laboratory Result Diagrams: 01/04/18 16:35 01/04/18 16:35 Laboratory results interpreted by me: 01/04/18 01/04/18 16:35 16:35 RBC 3.56 L Hgb 11.2 L Hct 32.7 L RDW 15.4 H Potassium 3.4 L BUN 6 L Creatinine 0.50 L C-Reactive Protein 86.2 H - Diagnostic Test Radiology reviewed: Image reviewed, Reports reviewed - No acute findings of the right wrist. Procedures - Immobilization Right wrist Pre-Proc Neuro Vasc Exam: Normal Immobilizer type: Volar splint Performed by: PCT Post-Proc Neuro Vasc Exam: Normal Alignment checked and good: Yes - Additional Procedures Joint aspiration Notes: 01/04/18 18:20 Skin was cleaned with ChloraPrep. Using 1% lidocaine a small wheal was made on the dorsal aspect of the wrist. Using a 22-gauge needle, was able to obtain approximately 1 mL of synovial fluid from the right wrist joint. This was done using a dorsal approach. Fluid appeared slightly bloody/yellow in color. It was not purulent. Patient tolerated the procedure well. A Band-Aid was applied. Discharge - Discharge Clinical Impression: Arthropathy of right wrist Condition: Stable Disposition: HOME, SELF-CARE Instructions: Gout ([facility]), Gout Diet ([facility]) Additional Instructions: Take medication as prescribed. Stop taking her Naprosyn and start taking the indomethacin. Continue to take the Percocet as needed for pain. Continue your antibiotics. Wear splint until you follow-up with orthopedics. Call the orthopedist's office tomorrow morning to obtain a follow-up appointment tomorrow with Dr. Felder. Follow-up sooner for worsening pain, persistent vomiting, numbness, tingling, weakness, any further concerns. Your blood pressure was elevated during today's visit. Have this rechecked with your doctor. Prescriptions: Indomethacin [Indocin 50 mg Capsule] 50 mg PO TID PRN #30 capsule PRN Reason: Forms: Elevated Blood Pressure, Smoking Cessation Education Referrals: JARON ANNAD DO [Primary Care Provider] - Follow up as needed JEN FELDER MD [ACTIVE STAFF] - Follow up as needed
--- NOTE | 2018-01-04 15:23 | RADIOLOGY REPORT (SQ) ---
EXAM DESCRIPTION: WRIST RIGHT 3 VIEWS COMPLETED DATE/TIME: 01/04/2018 2:57 pm REASON FOR STUDY: pain x 1 month, no injury COMPARISON: None. NUMBER OF VIEWS: Three views. TECHNIQUE: AP, lateral, and oblique radiographic images acquired of the right wrist. LIMITATIONS: None. FINDINGS: MINERALIZATION: Normal. BONES: No acute fracture or dislocation. No worrisome bone lesions. Normal alignment. SOFT TISSUES: No soft tissue swelling. No foreign body. OTHER: No other significant finding. IMPRESSION: NEGATIVE STUDY OF THE RIGHT WRIST. NO RADIOGRAPHIC EVIDENCE OF ACUTE INJURY. TECHNICAL DOCUMENTATION: JOB ID: [id number] [employer]- All Rights Reserved Reading location - IP/workstation name: [email or web address]
[2018-01-04] MEDS ORDERED: MORPHINE SULFATE 10 MG/ML INJ IM ONE (16:26)
[2018-01-04] MEDS ORDERED: ONDANSETRON 4 MG TAB.RAPDIS PO ONE (16:26)
[2018-01-04 17:02] LABS: ABSOLUTE LYMPHOCYTES (AUTO) 1.8 10^3/uL (0.5-4.7); ABSOLUTE MONOCYTES (AUTO) 0.6 10^3/uL (0.1-1.4); BASOPHILS % (AUTO) 0.5 % (0-2); EOSINOPHILS % (AUTO) 0.6 % (0-6); HEMATOCRIT 32.7 % (36.0-47.0); HEMOGLOBIN 11.2 g/dL (12.0-15.5); LYMPHOCYTES % (AUTO) 21.3 % (13-45); MEAN CORPUSCULAR HEMOGLOBIN 31.4 pg (27.0-33.4); MEAN CORPUSCULAR HGB CONC 34.2 g/dL (32.0-36.0); MEAN CORPUSCULAR VOLUME 92 fl (80-97); MONOCYTES % (AUTO) 6.9 % (3-13); PLATELET COUNT 290 10^3/uL (150-450); RED BLOOD COUNT 3.56 10^6/uL (3.72-5.28); RED CELL DISTRIBUTION WIDTH 15.4 % (11.5-14.0); SEGMENTED NEUTROPHILS % (AUTO) 70.7 % (42-78); TOTAL CELLS COUNTED % (AUTO) 100 %; WHITE BLOOD COUNT 8.6 10^3/uL (4.0-10.5)
[2018-01-04] MEDS ORDERED: INDOMETHACIN 50 MG CAPSULE PO ONE (17:04)
[2018-01-04] MEDS ORDERED: LIDOCAINE 1% INJ (10 MG/ML) 10 ML MDV INJ ONE (17:04)
[2018-01-04 17:22] LABS: ALANINE AMINOTRANSFERASE 25 U/L (9-52); ALBUMIN 3.9 g/dL (3.5-5.0); ALKALINE PHOSPHATASE 52 U/L (38-126); ANION GAP 10 (5-19); ASPARTATE AMINO TRANSFERASE 24 U/L (14-36); BILIRUBIN,DIRECT 0.2 mg/dL (0.0-0.4); BILIRUBIN,TOTAL 0.2 mg/dL (0.2-1.3); BLOOD UREA NITROGEN 6 mg/dL (7-20); C-REACTIVE PROTEIN 86.2 mg/L (<10.0); CALCIUM 9.4 mg/dL (8.4-10.2); CARBON DIOXIDE 25 mmol/L (22-30); CHLORIDE 106 mmol/L (98-107); GLUCOSE 105 mg/dL (75-110); POTASSIUM 3.4 mmol/L (3.6-5.0); SODIUM 140.5 mmol/L (137-145); TOTAL PROTEIN 6.5 g/dL (6.3-8.2)
[2018-01-04 17:57] LABS: ERYTHROCYTE SEDIMENTATION RATE 37 mm/hr (0-30)
[2018-01-04 18:16] VITALS: BP 120/72
== END 2018-01-04 18:38 | disposition home or self-care (01) ==
LOC: ER 14:06
PROC: 0R9N3ZZ Drainage of Right Wrist Joint, Percutaneous Approach (ICD-10-PCS; principal; 2018-01-04)
DX: M12.831 Other specific arthropathies, not elsewhere classified, right wrist (principal); F17.200 Nicotine dependence, unspecified, uncomplicated; E11.9 Type 2 diabetes mellitus without complications
CPT/HCPCS: 99284; 96372; 36415; 87040; 87070; 83605; 87205; 85025; 85652; 87075; 86140; 80053; 73110; 20605; S0119; J3490 ×2; J2270; J2405

== ENCOUNTER → 2018-01-04 | Outpatient (CLI) | payer MEDICAID ==
[2018-01-04 13:50] LABS: ABSOLUTE BASOPHILS # (AUTO) 0.1 10^3/uL (0.0-0.2); ABSOLUTE EOSINOPHILS # (AUTO) 0.1 10^3/uL (0.0-0.6); ABSOLUTE LYMPHOCYTES (AUTO) 1.8 10^3/uL (0.5-4.7); ABSOLUTE MONOCYTES (AUTO) 0.6 10^3/uL (0.1-1.4); ABSOLUTE NEUT (AUTO) 6.6 10^3/uL (1.7-8.2); BASOPHILS % (AUTO) 0.9 % (0-2); EOSINOPHILS % (AUTO) 0.7 % (0-6); HEMATOCRIT 35.5 % (36.0-47.0); HEMOGLOBIN 12.3 g/dL (12.0-15.5); LYMPHOCYTES % (AUTO) 19.9 % (13-45); MEAN CORPUSCULAR HEMOGLOBIN 31.9 pg (27.0-33.4); MEAN CORPUSCULAR HGB CONC 34.7 g/dL (32.0-36.0); MEAN CORPUSCULAR VOLUME 92 fl (80-97); MONOCYTES % (AUTO) 6.2 % (3-13); PLATELET COUNT 309 10^3/uL (150-450); RED BLOOD COUNT 3.87 10^6/uL (3.72-5.28); RED CELL DISTRIBUTION WIDTH 15.8 % (11.5-14.0); SEGMENTED NEUTROPHILS % (AUTO) 72.3 % (42-78); TOTAL CELLS COUNTED % (AUTO) 100 %; WHITE BLOOD COUNT 9.1 10^3/uL (4.0-10.5)
[2018-01-04 14:10] LABS: C-REACTIVE PROTEIN 81.3 mg/L (<10.0); URIC ACID 5.7 mg/dL (2.5-7.5)
[2018-01-04 14:28] LABS: ERYTHROCYTE SEDIMENTATION RATE 35 mm/hr (0-30)
[2018-01-06 13:01] LABS: CYCLIC CITRUL PEPTIDE IGG/A AB 7 units (0-19)
== END ==
LOC: OD 12:20
PROVIDERS: ATTEND Physician Assistant Surgical
DX: M25.50 Pain in unspecified joint (principal)
CPT/HCPCS: 36415; 84550; 85025; 85652; 86038; 86140; 86200; 86430

== ENCOUNTER 2018-01-15 08:04 | Emergency (ER) | payer MEDICAID ==
[2018-01-15] MEDS ORDERED: ASPIRIN 81 MG TABLET, CHEWABLE PO ONE (08:37)
--- NOTE | 2018-01-15 08:42 | ER Document Report ---
ED Cardiac - General Chief Complaint: Chest Pain Stated Complaint: CHEST PAIN, DIFFICULTY SWALLOWING Time Seen by Provider: 01/15/18 08:28 Notes: 52-year-old female presents to the ER complaining of 3 days of left-sided chest pain. Patient had nausea and several episodes of vomiting. The patient stated this feels similar to the discomfort she had in October. She did come to the ER at that point. Patient denies any sore throat or cough. Denies calf pain or leg swelling denies diarrhea. States she had a little bit of epigastric discomfort. She denies any black bloody or tarry stools denies hematemesis. Describes discomfort in her chest a sort of pressure, it is nonradiating. She is short of breath. TRAVEL OUTSIDE OF THE [place] IN LAST 30 DAYS: No - Related Data Allergies/Adverse Reactions: No Known Allergies Allergy (Verified 11/29/17 14:18) Past Medical History - Social History Smoking Status: Current Some Day Smoker Family History: Arthritis, CAD, CVA, Hyperlipidemia, Hypertension Endocrine Medical History: Reports: Hx Diabetes Mellitus Type 2 - w/neuropathy Renal/ Medical History: Denies: Hx Peritoneal Dialysis Musculoskeltal Medical History: Reports Hx Arthritis - RA Restless leg, Reports Hx Gout, Reports Hx Musculoskeletal Trauma Traumatic Medical History: Reports: Hx Fractures - right toes 4th and 5th Past Surgical History: Reports: Hx Section, Hx Orthopedic Surgery - L wrist cyst - Immunizations Immunizations up to date: Yes Hx Diphtheria, Pertussis, Tetanus Vaccination: Yes Review of Systems - Review of Systems Constitutional: denies: Chills, Fever Cardiovascular: Chest pain. denies: Palpitations, Heart racing Respiratory: Short of breath. denies: Hurts to breathe Gastrointestinal: Nausea, Vomiting. denies: Blood in vomit, Black stools Genitourinary: denies: Dysuria, Hematuria Musculoskeletal: denies: Back pain Skin: Other - Positive diaphoresis. denies: Rash -: Yes All other systems reviewed and negative Physical Exam - Vital signs Vitals: Temp Pulse Resp BP Pulse Ox 98.0 F 80 16 120/92 H 98 01/15/18 08:17 01/15/18 08:17 01/15/18 08:17 01/15/18 08:17 01/15/18 08:17 - Notes Notes: GENERAL_APPEARANCE: well_nourished, alert, cooperative VITALS: reviewed, see vital signs table. HEAD: no_swelling\tenderness on the head. EYES: PERRL, EOMI, conjunctiva_clear. NOSE: no_nasal_discharge. MOUTH: (-)decreased moisture. THROAT: no_throat_inflammation, no_airway_obstruction. no_lymphadenopathy NECK: supple, no_neck_tenderness, (-)thyromegaly. BACK: no_back_tenderness. CHEST_WALL: Reproducible chest discomfort left parasternal, no crepitus or subcutaneous emphysema LUNGS: no_wheezing, no_rales, no_rhonchi, (-)accessory muscle use, good air exchange bilateral. HEART: normal_rate, normal_rhythm, normal_S1, normal_S2, (-)S3, (-)S4, no_ murmur, no_rub. ABDOMEN: normal_BS, soft, mild epigastric_abd_tenderness, (-)guarding, (-) rebound, no_organomegaly, no_abd_masses. EXTREMITIES: good pulses in all_extremities, no_swelling\tenderness in the extremities, no_edema. SKIN: warm, dry, good_color, no_rash. MENTAL_STATUS: speech_clear, oriented_X_3, normal_affect, responds_ appropriately to questions. Course - Re-evaluation Re-evalutation: 01/15/18 08:42 Patient arrives complaining of chest discomfort or shortness of breath nausea vomiting --pain is producible on palpation will do ACS workup. 01/15/18 12:25 01/15/18 12:27 HEART Score for Major Cardiac Events RESULT SUMMARY: 2 points Low Score (0-3 points) Risk of MACE of 0.9-1.7%. INPUTS: History > 0 = Slightly suspicious EKG > 0 = Normal Age > 1 = 45-64 Risk factors > 1 = 1-2 risk factors Initial troponin > 0 = normal limit Wells' Criteria for Pulmonary Embolism RESULT SUMMARY: 0.0 points Low risk group: 1.3% chance of PE in an ED population. INPUTS: Clinical signs and symptoms of DVT > 0 = No PE is #1 diagnosis OR equally likely > 0 = No Heart rate > 100 > 0 = No Immobilization at least 3 days OR surgery in the previous 4 weeks > 0 = No Previous, objectively diagnosed PE or DVT > 0 = No Hemoptysis > 0 = No Malignancy w/ treatment within 6 months or palliative > 0 = No Patient has had serial troponins. Both are negative. The patient's pain is reproduced on palpation. Patient is low risk on heart score. I spoke with her about major adverse cardiac events. The patient will be discharged with something for pain for home advised if she does not feel any better in 24-48 hours to return to the ER and allow us to reevaluate her. She is also low risk for PE and has low risk via well's criteria for PE. Patient verbalized understanding will be discharged home. Follow-up in 24 hours for reevaluation if she feels she is not improving. - Vital Signs Vital signs: Temp Pulse Resp BP Pulse Ox 98.0 F 80 18 103/64 97 01/15/18 08:17 01/15/18 08:17 01/15/18 11:01 01/15/18 11:01 01/15/18 11:01 - Laboratory Result Diagrams: 01/15/18 08:38 01/15/18 08:38 Laboratory results interpreted by me: 01/15/18 01/15/18 08:38 08:38 RDW 16.0 H BUN 4 L Glucose 165 H Discharge - Discharge Clinical Impression: Chest wall pain Condition: Good Disposition: HOME, SELF-CARE Instructions: Chest Wall Pain ([facility]) Additional Instructions: Follow-up in 24-48 hours if not improving or CHEPE if worse. Otherwise follow- up with family doctor Prescriptions: Naproxen [Naprosyn 375 Mg Tablet] 375 mg PO BID #12 tablet Referrals: JARON ANAND DO [Primary Care Provider] - Follow up as needed
[2018-01-15] MEDS ORDERED: MAG HYDROX/AL HYDROX/SIMETH SUSP 30 ML UDCUP PO ONE (08:43)
[2018-01-15] MEDS ORDERED: LIDOCAINE 2% VISCOUS SOLN 20 ML UDCUP PO ONE (08:43)
[2018-01-15 08:58] LABS: ABSOLUTE EOSINOPHILS # (AUTO) 0.1 10^3/uL (0.0-0.6); ABSOLUTE LYMPHOCYTES (AUTO) 2.1 10^3/uL (0.5-4.7); ABSOLUTE MONOCYTES (AUTO) 0.5 10^3/uL (0.1-1.4); ABSOLUTE NEUT (AUTO) 4.9 10^3/uL (1.7-8.2); BASOPHILS % (AUTO) 0.3 % (0-2); EOSINOPHILS % (AUTO) 1.2 % (0-6); HEMATOCRIT 39.1 % (36.0-47.0); LYMPHOCYTES % (AUTO) 27.2 % (13-45); MEAN CORPUSCULAR HEMOGLOBIN 31.2 pg (27.0-33.4); MEAN CORPUSCULAR HGB CONC 33.3 g/dL (32.0-36.0); MEAN CORPUSCULAR VOLUME 94 fl (80-97); PLATELET COUNT 355 10^3/uL (150-450); RED BLOOD COUNT 4.17 10^6/uL (3.72-5.28); SEGMENTED NEUTROPHILS % (AUTO) 64.3 % (42-78); TOTAL CELLS COUNTED % (AUTO) 100 %; WHITE BLOOD COUNT 7.6 10^3/uL (4.0-10.5)
[2018-01-15 09:05] LABS: INTERNATIONAL RATION (INR) 1.01; PROTHROMBIN TIME 13.8 SEC (11.4-15.4)
[2018-01-15] MEDS ORDERED: NITROGLYCERIN 0.4 MG/TAB 25 TAB/BOTTLE SL ONE (09:06)
[2018-01-15] MEDS ORDERED: NITROGLYCERIN 0.4 MG/TAB 25 TAB/BOTTLE SL PRN (09:15)
[2018-01-15 09:16] LABS: ALANINE AMINOTRANSFERASE 29 U/L (9-52); ALBUMIN 4.1 g/dL (3.5-5.0); ALKALINE PHOSPHATASE 48 U/L (38-126); ANION GAP 15 (5-19); ASPARTATE AMINO TRANSFERASE 27 U/L (14-36); BILIRUBIN,DIRECT 0.2 mg/dL (0.0-0.4); BILIRUBIN,TOTAL 0.2 mg/dL (0.2-1.3); BLOOD UREA NITROGEN 4 mg/dL (7-20); CALCIUM 9.9 mg/dL (8.4-10.2); CARBON DIOXIDE 23 mmol/L (22-30); CHLORIDE 103 mmol/L (98-107); CREATINE KINASE 117 U/L (30-135); GLUCOSE 165 mg/dL (75-110); LIPASE 37.7 U/L (23-300); POTASSIUM 4.1 mmol/L (3.6-5.0); TOTAL PROTEIN 7.1 g/dL (6.3-8.2)
[2018-01-15 09:27] LABS: CREATINE KINASE MB 0.47 ng/mL (<4.55)
[2018-01-15 09:31] LABS: TROPONIN I < 0.012 ng/mL
[2018-01-15] MEDS ORDERED: MORPHINE SULFATE 10 MG/ML INJ IV ONE (09:59)
[2018-01-15] MEDS ORDERED: ONDANSETRON HCL INJ/PF 4 MG/2 ML SDV IV ONE (10:00)
--- NOTE | 2018-01-15 10:18 | RADIOLOGY REPORT (SQ) ---
EXAM DESCRIPTION: CHEST SINGLE VIEW COMPLETED DATE/TIME: 01/15/2018 8:54 am REASON FOR STUDY: CP COMPARISON: 10/23/2017 EXAM PARAMETERS: NUMBER OF VIEWS: One view. TECHNIQUE: Single frontal radiographic view of the chest acquired. RADIATION DOSE: NA LIMITATIONS: None. FINDINGS: LUNGS AND PLEURA: No opacities, masses or pneumothorax. No pleural effusion. MEDIASTINUM AND HILAR STRUCTURES: No masses. Contour normal. HEART AND VASCULAR STRUCTURES: Heart normal in size. Normal vasculature. BONES: No acute findings. HARDWARE: None in the chest. OTHER: No other significant finding. IMPRESSION: NO ACUTE RADIOGRAPHIC FINDING IN THE CHEST. TECHNICAL DOCUMENTATION: JOB ID: [id number] [employer]- All Rights Reserved Reading location - IP/workstation name: [email or web address]
[2018-01-15 12:35] VITALS: BP 107/68
--- NOTE | 2018-01-15 13:13 | EKG REPORT ---
SEVERITY:- NORMAL ECG - SINUS RHYTHM : Confirmed by: Tracy Bain 15-Jan-2018 13:12:38
== END 2018-01-15 12:35 | disposition home or self-care (01) ==
LOC: ER 08:04
DX: R07.89 Other chest pain (principal); R11.2 Nausea with vomiting, unspecified; R06.02 Shortness of breath; R61 Generalized hyperhidrosis; E11.9 Type 2 diabetes mellitus without complications; F17.200 Nicotine dependence, unspecified, uncomplicated
CPT/HCPCS: 93005; 99285; 96374; 96375; 36415; 82553; 82550; 83690; 85025; 85610; 80053; 84484; 71045; 93010; J2270; J3490; J2405

== ENCOUNTER 2018-01-25 03:39 | Emergency (ER) | payer MEDICAID, OTHER ==
[2018-01-25] MEDS ORDERED: MORPHINE SULFATE 10 MG/ML INJ IV ONE (03:52)
[2018-01-25] MEDS ORDERED: ONDANSETRON HCL INJ/PF 4 MG/2 ML SDV IV ONE (03:52)
[2018-01-25] MEDS ORDERED: ASPIRIN 81 MG TABLET, CHEWABLE PO ONE (03:53)
--- NOTE | 2018-01-25 03:56 | ER Document Report ---
ED General - General TRAVEL OUTSIDE OF THE [place] IN LAST 30 DAYS: No <BOLA MCNALLY - Last Filed: 01/25/18 07:10> <AKILA ASHFORD - Last Filed: 01/25/18 10:00> - General Chief Complaint: Chest Wall Pain Stated Complaint: CHEST PAIN Time Seen by Provider: 01/25/18 03:48 Notes: Patient is a 52-year-old female who comes emergency department for chief complaint of chest pain. She comes by EMS, was given 324 mg of ASA. She states the pain is in her right lower chest, almost below her right ribs, woke her up out of her sleep. She also had some pain up into her mid chest. She states she vomited earlier in the day. Symptoms are worse when she lies flat. She has reduced appetite. She states the pain is sharp and makes her feel short of breath. She denies radiation to her back. She denies fever or chills, black stools, hematemesis. Past medical history of insulin-dependent type 2 diabetes , neuropathy, gout. She is on pain management. She denies any cardiac history, denies any family history of IA. She smokes, denies alcohol, denies recreational drugs. (BOLA MCNALLY) - Related Data Allergies/Adverse Reactions: No Known Allergies Allergy (Verified 11/29/17 14:18) Past Medical History - General Information source: Patient - Social History Smoking Status: Current Every Day Smoker Smoking Education Provided: Yes - <3 min Frequency of alcohol use: None Drug Abuse: None Lives with: Family Family History: Arthritis, CAD, CVA, Hyperlipidemia, Hypertension Endocrine Medical History: Reports: Hx Diabetes Mellitus Type 2 - w/neuropathy Renal/ Medical History: Denies: Hx Peritoneal Dialysis Musculoskeltal Medical History: Reports Hx Arthritis - RA Restless leg, Reports Hx Gout, Reports Hx Musculoskeletal Trauma Traumatic Medical History: Reports: Hx Fractures - right toes 4th and 5th Past Surgical History: Reports: Hx Section, Hx Orthopedic Surgery - L wrist cyst - Immunizations Immunizations up to date: Yes Hx Diphtheria, Pertussis, Tetanus Vaccination: Yes <BOLA MCNALLY - Last Filed: 01/25/18 07:10> Review of Systems - Review of Systems Constitutional: No symptoms reported EENT: No symptoms reported Cardiovascular: See HPI Respiratory: See HPI Gastrointestinal: See HPI Genitourinary: No symptoms reported Female Genitourinary: No symptoms reported Musculoskeletal: No symptoms reported Skin: No symptoms reported Hematologic/Lymphatic: No symptoms reported Neurological/Psychological: No symptoms reported <BOLA MCNALLY - Last Filed: 01/25/18 07:10> Physical Exam - Vital signs Interpretation: Normal - General General appearance: Appears well, Alert In distress: None - HEENT Head: Normocephalic, Atraumatic Eyes: Normal Pupils: PERRL Mouth/Lips: Normal Mucous membranes: Normal Pharynx: Normal Neck: Normal - Respiratory Respiratory status: No respiratory distress Chest status: Nontender Breath sounds: Normal Chest palpation: Normal - Cardiovascular Rhythm: Regular Heart sounds: Normal auscultation Murmur: No - Abdominal Inspection: Normal Distension: No distension Bowel sounds: Normal Tenderness: Tender - Pain in the right upper quadrant and epigastric areas which are mild, remaining abdomen is benign Organomegaly: No organomegaly - Back Back: Normal, Nontender - Extremities General upper extremity: Normal inspection, Nontender, Normal color, Normal ROM , Normal temperature General lower extremity: Normal inspection, Nontender, Normal color, Normal ROM , Normal temperature, Normal weight bearing. No: Nagi's sign - Neurological Neuro grossly intact: Yes Cognition: Normal Orientation: AAOx4 [place] Coma Scale Eye Opening: Spontaneous [place] Coma Scale Verbal: Oriented [place] Coma Scale Motor: Obeys Commands [place] Coma Scale Total: 15 Speech: Normal Motor strength normal: LUE, RUE, LLE, RLE Sensory: Normal - Psychological Associated symptoms: Normal affect, Normal mood - Skin Skin Temperature: Warm Skin Moisture: Dry Skin Color: Normal <BOLA MCNALLY - Last Filed: 01/25/18 07:10> - Vital signs Vitals: Pulse Ox 99 01/25/18 03:53 Course - Laboratory Result Diagrams: 01/25/18 06:00 01/25/18 06:00 <BOLA MCNALLY - Last Filed: 01/25/18 07:10> - Laboratory Result Diagrams: 01/25/18 06:00 01/25/18 06:00 <AKILA ASHFORD - Last Filed: 01/25/18 10:00> - Re-evaluation Re-evalutation: Patient points to her right lower ribs and right upper quadrant area as the source of her pain. Some radiation into mid chest. No radiation to the back. She does have some right upper quadrant and epigastric tenderness on exam, remaining abdomen benign. She is alert and well-appearing. Initial blood pressure low, recheck here and is normal. Heart score is 2. Presentation more suggestive of GI source. EKG shows sinus rhythm with no T-wave inversions or ST segment changes in consecutive leads. Chest x-ray is unremarkable. (BOLA MCNALLY) 01/25/18 07:05 assumed care of the pt, she is in [place] 01/25/18 07:53 back from [place] wanting something for pain. At this time she is tender in the right chest wall and right upper quadrant which is worse when she takes deep breath. PCP is Katelynn Morales. She states that she also takes 10 mg of Percocet 3 times a day. 01/25/18 07:57 (AKILA ASHFORD) - Vital Signs Vital signs: Temp Pulse Resp BP Pulse Ox 14 98/63 L 98 01/25/18 07:01 01/25/18 07:00 01/25/18 07:01 - Laboratory Laboratory results interpreted by me: 01/25/18 01/25/18 06:00 06:00 RDW 15.4 H Carbon Dioxide 21 L Discharge <BOLA MCNALLY - Last Filed: 01/25/18 07:10> <AKILA ASHFORD - Last Filed: 01/25/18 10:00> - Discharge Clinical Impression: Right side chest pain, Right upper quadrant abdominal pain Condition: Good Disposition: HOME, SELF-CARE Instructions: Abdominal Pain ([facility]), Chest Pain of Unclear Cause ([facility]) Additional Instructions: Return to the emergency room worsening of symptoms Follow-up with your doctor Katelynn Ren Copy of all lab work and studies done to give to your doctor Forms: Return to Work Referrals: KATELYNN REN, [NO LOCAL MD] - Follow up tomorrow
[2018-01-25] MEDS ORDERED: MORPHINE SULFATE 10 MG/ML INJ ONE (05:01)
[2018-01-25] MEDS ORDERED: FAMOTIDINE 20 MG TABLET ONE (05:01)
[2018-01-25] MEDS ORDERED: ONDANSETRON HCL INJ/PF 4 MG/2 ML SDV ONE (05:01)
[2018-01-25 06:40] LABS: ABSOLUTE BASOPHILS # (AUTO) 0.1 10^3/uL (0.0-0.2); ABSOLUTE EOSINOPHILS # (AUTO) 0.1 10^3/uL (0.0-0.6); ABSOLUTE LYMPHOCYTES (AUTO) 2.4 10^3/uL (0.5-4.7); ABSOLUTE MONOCYTES (AUTO) 0.5 10^3/uL (0.1-1.4); ABSOLUTE NEUT (AUTO) 3.8 10^3/uL (1.7-8.2); BASOPHILS % (AUTO) 1.8 % (0-2); EOSINOPHILS % (AUTO) 1.4 % (0-6); LYMPHOCYTES % (AUTO) 34.1 % (13-45); MEAN CORPUSCULAR HEMOGLOBIN 31.6 pg (27.0-33.4); MEAN CORPUSCULAR HGB CONC 34.2 g/dL (32.0-36.0); MEAN CORPUSCULAR VOLUME 93 fl (80-97); MONOCYTES % (AUTO) 7.3 % (3-13); PLATELET COUNT 292 10^3/uL (150-450); RED CELL DISTRIBUTION WIDTH 15.4 % (11.5-14.0); SEGMENTED NEUTROPHILS % (AUTO) 55.4 % (42-78); TOTAL CELLS COUNTED % (AUTO) 100 %; WHITE BLOOD COUNT 6.9 10^3/uL (4.0-10.5)
[2018-01-25 06:45] LABS: ALANINE AMINOTRANSFERASE 36 U/L (9-52); ALKALINE PHOSPHATASE 49 U/L (38-126); ANION GAP 16 (5-19); ASPARTATE AMINO TRANSFERASE 29 U/L (14-36); BILIRUBIN,DIRECT 0.3 mg/dL (0.0-0.4); BILIRUBIN,TOTAL 0.3 mg/dL (0.2-1.3); BLOOD UREA NITROGEN 7 mg/dL (7-20); CALCIUM 9.9 mg/dL (8.4-10.2); CARBON DIOXIDE 21 mmol/L (22-30); CHLORIDE 103 mmol/L (98-107); CREATINE KINASE 113 U/L (30-135); GLUCOSE 104 mg/dL (75-110); LIPASE 58.9 U/L (23-300); POTASSIUM 4.4 mmol/L (3.6-5.0); SODIUM 139.9 mmol/L (137-145); TOTAL PROTEIN 6.9 g/dL (6.3-8.2)
[2018-01-25 06:56] LABS: CREATINE KINASE MB 0.79 ng/mL (<4.55)
[2018-01-25 06:58] LABS: TROPONIN I < 0.012 ng/mL
--- NOTE | 2018-01-25 07:34 | EKG REPORT ---
SEVERITY:- NORMAL ECG - SINUS RHYTHM : Confirmed by: Phillip Bennett MD 25-Jan-2018 07:34:03
--- NOTE | 2018-01-25 07:54 | RADIOLOGY REPORT (SQ) ---
EXAM DESCRIPTION: CHEST SINGLE VIEW CLINICAL HISTORY: 52 years Female, Chest pain COMPARISON: CT, 10/23/2017. NUMBER OF VIEWS/TECHNIQUE: 1/AP FINDINGS: Adequate lung volume, clear parenchyma, normal cardiac silhouette, and intact bony thorax. IMPRESSION: No acute cardiopulmonary findings.
[2018-01-25] MEDS ORDERED: HYDROMORPHONE HCL INJ/PF 2 MG/ML AMPULE IV ONE (07:58)
--- NOTE | 2018-01-25 08:27 | RADIOLOGY REPORT (SQ) ---
EXAM DESCRIPTION: U/S ABDOMEN LIMITED W/O DOP COMPLETED DATE/TIME: 01/25/2018 7:26 am REASON FOR STUDY: RUQ pain, vomiting COMPARISON: None. TECHNIQUE: Dynamic and static grayscale images acquired of the abdomen and recorded on PACS. Additio nal selected color Doppler and spectral images recorded. LIMITATIONS: None. FINDINGS: PANCREAS: No masses. Visualized pancreatic duct normal caliber. LIVER: Generalized fatty infiltration. 21.1 cm. LIVER VASCULATURE: Normal directional flow of the main portal vein and hepatic veins. GALLBLADDER: No stones. Normal wall thickness. No pericholecystic fluid. ULTRASOUND-DETECTED AGUIRRE'S SIGN: Negative. INTRAHEPATIC DUCTS AND COMMON DUCT: CBD and intrahepatic ducts normal caliber. No filling defects. INFERIOR VENA CAVA: Normal flow. AORTA: No aneurysm. RIGHT KIDNEY: Normal size. Normal echogenicity. No solid or suspicious masses. No hydronephrosis. No calcifications. PERITONEAL AND RIGHT PLEURAL SPACE: No ascites or effusions. OTHER: No other significant findings. IMPRESSION: Generalized fatty infiltration. Hepatomegaly. TECHNICAL DOCUMENTATION: JOB ID: [id number]- All Rights Reserved Reading location - IP/workstation name: [email or web address]
[2018-01-25] MEDS ORDERED: KETOROLAC TROMETHAMINE INJ/PF 30 MG/1 ML SDV IV ONE (09:04)
[2018-01-25 10:15] VITALS: BP 117/85
== END 2018-01-25 10:24 | disposition home or self-care (01) ==
LOC: ER 03:39
DX: R07.89 Other chest pain (principal); R10.11 Right upper quadrant pain; F17.200 Nicotine dependence, unspecified, uncomplicated
CPT/HCPCS: 93005; 99285; 96374; 96375; 36415; 82553; 82550; 83690; 85025; 80053; 84484; 71045; 76705; 93010; J1885; J1170

== ENCOUNTER 2018-03-16 18:53 | Emergency (ER) | payer MEDICAID ==
[2018-03-16 19:06] VITALS: BP 146/91
--- NOTE | 2018-03-16 20:07 | ER Document Report ---
ED General - General Chief Complaint: Leg Swelling Stated Complaint: LEG PAIN Time Seen by Provider: 03/16/18 19:53 Notes: 52-year-old female PMH gout here with complaints of gout flare to her left knee and right foot that started yesterday. She has been taking allopurinol with not much relief. She has run out of her chronic Percocets prescribed by her PCP. She does not know what may have triggered the symptoms. She denies any other symptoms. States this feels like her typical gout flare. TRAVEL OUTSIDE OF THE [place] IN LAST 30 DAYS: No - Related Data Allergies/Adverse Reactions: No Known Allergies Allergy (Verified 03/16/18 18:59) Past Medical History - Social History Smoking Status: Current Some Day Smoker Chew tobacco use (# tins/day): No Frequency of alcohol use: None Drug Abuse: None Family History: Arthritis, CAD, CVA, Hyperlipidemia, Hypertension Patient has suicidal ideation: No Patient has homicidal ideation: No Endocrine Medical History: Reports: Hx Diabetes Mellitus Type 2 - w/neuropathy Renal/ Medical History: Denies: Hx Peritoneal Dialysis Musculoskeltal Medical History: Reports Hx Arthritis - RA Restless leg, Reports Hx Gout, Reports Hx Musculoskeletal Trauma Traumatic Medical History: Reports: Hx Fractures - right toes 4th and 5th Past Surgical History: Reports: Hx Section, Hx Orthopedic Surgery - L wrist cyst - Immunizations Immunizations up to date: Yes Hx Diphtheria, Pertussis, Tetanus Vaccination: Yes Review of Systems - Review of Systems Notes: See history of present illness for pertinent positive review of systems; otherwise all review of systems have been reviewed and are negative Physical Exam - Vital signs Vitals: Temp Pulse Resp BP Pulse Ox 99.0 F 95 16 146/91 H 97 03/16/18 19:04 03/16/18 19:04 03/16/18 19:04 03/16/18 19:04 03/16/18 19:04 - Notes Notes: PHYSICAL EXAMINATION: GENERAL: Well-appearing and in no acute distress. HEAD: Atraumatic, normocephalic. EYES: Pupils equal round and reactive to light, extraocular movements intact, sclera anicteric, conjunctiva are normal. ENT: nares patent, oropharynx clear without exudates. Moist mucous membranes. NECK: Normal range of motion, supple without lymphadenopathy LUNGS: CTAB and equal. No wheezes rales or rhonchi. HEART: Regular rate and rhythm without murmurs ABDOMEN: Soft, no tenderness. No facial grimacing/wincing upon palpation. No guarding, no rebound. EXTREMITIES: Normal range of motion, no pitting edema. No cyanosis. There is mild TTP of left knee without swelling. There is mild TTP of toes of right foot without erythema swelling NEUROLOGICAL: Cranial nerves grossly intact. Normal sensory/motor exams. PSYCH: Normal mood, normal affect. SKIN: Warm, Dry, normal turgor, no rashes or lesions noted. There is a small 4 x 4 centimeter area of mild erythema overlying the left anterior knee but not elsewhere and there is no induration fluctuance drainage Course - Re-evaluation Re-evalutation: 03/16/18 20:06 MEDICAL DECISION MAKING: Concern for gout flare and cellulitis Will prescribe clindamycin prednisone and meloxicam Low clinical suspicion for septic joint given the history/exam Instructed follow-up PCP next day or few and return precautions given Patient understands and agrees to the plan of care - Vital Signs Vital signs: Temp Pulse Resp BP Pulse Ox 99.0 F 95 16 146/91 H 97 03/16/18 19:04 03/16/18 19:04 03/16/18 19:04 03/16/18 19:04 03/16/18 19:04 Discharge - Discharge Clinical Impression: Cellulitis and abscess of left leg Gout flare Qualifiers: Gout site: unspecified site Gout etiology: unspecified cause Qualified Code(s) : M10.9 - Gout, unspecified Condition: Good Disposition: HOME, SELF-CARE Additional Instructions: You were seen in the emergency [facility]. Finish antibiotics and steroids and do not skip any doses. If you were given any sedating medications, be sure not to operate heavy machinery (example - driving ) and be sure you are not too sedated to walk appropriately. Please followup with your primary physician in the next few days for further management/ evaluation. Please return to the emergency department for worsening of symptoms or any symptom that you deem to be concerning or life-threatening. Thank you for allowing us to be part of your care. Prescriptions: Clindamycin HCl 300 mg PO TID #21 capsule Meloxicam 7.5 mg PO DAILYP PRN #7 tablet PRN Reason: Prednisone 60 mg PO DAILY #15 tablet Referrals: JARON ANAND, [Primary Care Provider] - Follow up as needed
== END 2018-03-16 20:09 | disposition home or self-care (01) ==
LOC: ER 18:53
DX: L03.116 Cellulitis of left lower limb (principal); M10.9 Gout, unspecified; F17.200 Nicotine dependence, unspecified, uncomplicated; E11.9 Type 2 diabetes mellitus without complications
CPT/HCPCS: 99284

== ENCOUNTER → 2018-04-23 | Outpatient (CLI) | payer MEDICAID ==
[2018-04-23 08:57] LABS: ABSOLUTE BASOPHILS # (AUTO) 0.1 10^3/uL (0.0-0.2); ABSOLUTE EOSINOPHILS # (AUTO) 0.1 10^3/uL (0.0-0.6); ABSOLUTE LYMPHOCYTES (AUTO) 3.5 10^3/uL (0.5-4.7); ABSOLUTE MONOCYTES (AUTO) 0.6 10^3/uL (0.1-1.4); ABSOLUTE NEUT (AUTO) 7.1 10^3/uL (1.7-8.2); BASOPHILS % (AUTO) 1.1 % (0-2); EOSINOPHILS % (AUTO) 0.5 % (0-6); HEMATOCRIT 41.5 % (36.0-47.0); HEMOGLOBIN 14.1 g/dL (12.0-15.5); MEAN CORPUSCULAR HEMOGLOBIN 30.5 pg (27.0-33.4); MEAN CORPUSCULAR HGB CONC 33.9 g/dL (32.0-36.0); MEAN CORPUSCULAR VOLUME 90 fl (80-97); PLATELET COUNT 330 10^3/uL (150-450); RED BLOOD COUNT 4.61 10^6/uL (3.72-5.28); RED CELL DISTRIBUTION WIDTH 13.9 % (11.5-14.0); SEGMENTED NEUTROPHILS % (AUTO) 62.4 % (42-78); TOTAL CELLS COUNTED % (AUTO) 100 %; WHITE BLOOD COUNT 11.4 10^3/uL (4.0-10.5)
[2018-04-23 09:33] LABS: ANION GAP 15 (5-19); BLOOD UREA NITROGEN 14 mg/dL (7-20); C-REACTIVE PROTEIN 5.3 mg/L (<10.0); CARBON DIOXIDE 22 mmol/L (22-30); CHLORIDE 105 mmol/L (98-107); GLUCOSE 92 mg/dL (75-110); POTASSIUM 4.1 mmol/L (3.6-5.0); SODIUM 141.6 mmol/L (137-145)
[2018-04-23 09:37] LABS: ERYTHROCYTE SEDIMENTATION RATE 6 mm/hr (0-30)
== END ==
LOC: OD 07:49
PROVIDERS: ATTEND Orthopaedic Surgery
DX: M25.561 Pain in right knee (principal); M25.562 Pain in left knee
CPT/HCPCS: 36415; 80048; 85025; 85652; 86140

== ENCOUNTER 2018-06-11 10:09 | Day surgery (SDC) | payer MEDICAID ==
--- NOTE | 2018-06-08 10:29 | EKG REPORT ---
SEVERITY:- BORDERLINE ECG - SINUS RHYTHM BORDERLINE T ABNORMALITIES, INFERIOR LEADS : Confirmed by: Klarissa Mcknight MD 08-Jun-2018 10:28:15
--- NOTE | 2018-06-08 10:42 | RADIOLOGY REPORT (SQ) ---
EXAM DESCRIPTION: CHEST PA/LATERAL COMPLETED DATE/TIME: 06/08/2018 10:32 am REASON FOR STUDY: PRE-OP COMPARISON: 01/25/2018 EXAM PARAMETERS: NUMBER OF VIEWS: two views TECHNIQUE: Digital Frontal and Lateral radiographic views of the chest acquired. RADIATION DOSE: NA LIMITATIONS: none FINDINGS: LUNGS AND PLEURA: No opacities, masses or pneumothorax. No pleural effusion. MEDIASTINUM AND HILAR STRUCTURES: No masses or contour abnormalities. HEART AND VASCULAR STRUCTURES: Heart normal size. No evidence for failure. BONES: No acute findings. HARDWARE: None in the chest. OTHER: No other significant finding. IMPRESSION: NO SIGNIFICANT RADIOGRAPHIC FINDING IN THE CHEST. TECHNICAL DOCUMENTATION: JOB ID: [id number] [employer]- All Rights Reserved Reading location - IP/workstation name: [email or web address]
[2018-06-08 10:57] LABS: APPEARANCE,URINE CLEAR; BILIRUBIN,URINE NEGATIVE (NEGATIVE); COLOR,URINE YELLOW; GLUCOSE, URINE NEGATIVE (NEGATIVE); KETONES,URINE NEGATIVE (NEGATIVE); LEUKOCYTE ESTERASE,URINE NEGATIVE (NEGATIVE); NITRITE,URINE NEGATIVE (NEGATIVE); PROTEIN,URINE NEGATIVE (NEGATIVE); URINE SPECIFIC GRAVITY 1.018; UROBILINOGEN,URINE NEGATIVE mg/dL (<2.0)
[2018-06-08 11:13] LABS: HEMATOCRIT 39.8 % (36.0-47.0); HEMOGLOBIN 13.6 g/dL (12.0-15.5); MEAN CORPUSCULAR HEMOGLOBIN 30.6 pg (27.0-33.4); MEAN CORPUSCULAR HGB CONC 34.2 g/dL (32.0-36.0); MEAN CORPUSCULAR VOLUME 89 fl (80-97); PLATELET COUNT 301 10^3/uL (150-450); RED BLOOD COUNT 4.45 10^6/uL (3.72-5.28); RED CELL DISTRIBUTION WIDTH 13.6 % (11.5-14.0); WHITE BLOOD COUNT 8.7 10^3/uL (4.0-10.5)
[2018-06-08 11:49] LABS: ANION GAP 10 (5-19); BLOOD UREA NITROGEN 4 mg/dL (7-20); CARBON DIOXIDE 25 mmol/L (22-30); CHLORIDE 103 mmol/L (98-107); GLUCOSE 134 mg/dL (75-110); POTASSIUM 3.9 mmol/L (3.6-5.0); SODIUM 138.2 mmol/L (137-145)
[~2018-06-11 10:09] MED LIST changes: +CEFAZOLIN 2 GM/D5W RTU 2 GM/50 ML RTUPB IV ONE; +CEFAZOLIN 2 GM/D5W RTU 2 GM/50 ML RTUPB IV PRN; -FERRIC CARBOXYMALTOSE 750 MG in NORMAL SALINE 250 ML IV PRN; +NORMAL SALINE 1000 ML 1,000 ML IV PRN; -NORMAL SALINE 250 ML IV PRN
[2018-06-11] MEDS ORDERED: BUPIVACAINE HCL 0.5 % INJ/PF 30 ML SDV ONE (10:41)
[2018-06-11] MEDS ORDERED: LIDOCAINE 1%/EPINEPHRINE INJ 20 ML VIAL ONE (10:41)
[2018-06-11] MEDS ORDERED: FENTANYL CITRATE INJ/PF 100 MCG/2 ML AMPUL ONE (11:57)
[2018-06-11] MEDS ORDERED: MIDAZOLAM 2 MG/2 ML INJ ONE (11:58)
[2018-06-11] MEDS ORDERED: BUPIVACAINE HCL 0.25% /EPINEPHRINE INJ/PF 30 ML SDV ONE (13:26)
[2018-06-11] MEDS ORDERED: DIPHENHYDRAMINE HCL 50 MG/ML VIAL IV PRN (13:38)
[2018-06-11] MEDS ORDERED: MEPERIDINE HCL/PF INJ 25 MG/1 ML DISP.SYRIN IV PRN (13:38)
[2018-06-11] MEDS ORDERED: FENTANYL CITRATE INJ/PF 100 MCG/2 ML AMPUL IV PRN ×3 (13:38)
[2018-06-11] MEDS ORDERED: OXYCODONE-ACETAMINOPHEN 5-325 MG TABLET PO PRN ×2 (13:38)
[2018-06-11] MEDS ORDERED: PROMETHAZINE HCL INJ 25 MG/1 ML VIAL IV PRN ×2 (13:38)
--- NOTE | 2018-06-11 13:44 | Operative Report ---
Operative Report DATE OF SURGERY: 06/11/18 PREOPERATIVE DIAGNOSIS: Left tarsal tunnel syndrome OPERATION: Left tarsal tunnel release SURGEON: JEN FELDER ANESTHESIA: GA ESTIMATED BLOOD LOSS: Minimal PROCEDURE: With the patient supine on the operating table the left lower extremities prepped and draped in a sterile fashion. The limb is elevated for exsanguination tourniquet inflated 280 torr. A curvilinear incision is made posterior and inferior to the medial malleolus of the left lower extremity. Blunt dissection was used to identify the posterior tibial nerve posterior to the medial malleolus. Is then traced distally as the courses through the tarsal tunnel. The tarsal tunnel was released until the point that a [place] elevator can be passed freely along with the nerve into the plantar surface of the foot. The tourniquet was deflated. Hemostasis obtained with bipolar cautery. The wound is irrigated with bulb lavage. Is closed using Vicryl followed by nylon. A sterile compressive dressing is applied and the patient's return to PACU in satisfactory condition.
--- NOTE | 2018-06-11 13:47 | Discharge Summary ---
Discharge Summary (SDC) - Discharge Final Diagnosis: Left tarsal tunnel syndrome Date of Surgery: 06/11/18 Discharge Date: 06/11/18 Condition: Good Treatment or Instructions: Elevate left lower extremity Prescriptions: Oxycodone HCl [Roxicodone] 5 mg PO Q6 PRN #40 tablet PRN Reason: Referrals: JARON ANAND DO [Primary Care Provider] - Discharge Diet: As Tolerated, Regular Respiratory Treatments at Home: Deep Breathing/Coughing Discharge Activity: Balance Activity w/Rest, No Driving, No tub bath Home Care Assistance: None Needed Report the Following to Your Physician Immediately: Shortness of Breath, Fever over 101 Degrees, Drainage-Foul Smelling
[2018-06-11] MEDS: LORAZEPAM INJ 2 MG/1 ML VIAL ONE ×2 (14:05→14:15)
[2018-06-11] MEDS ORDERED: NEOSTIGMINE METHYLSULFATE 10 MG/10 ML VIAL ONE (14:15)
[2018-06-11] MEDS ORDERED: GLYCOPYRROLATE 1 MG/5 ML SYRINGE ONE (14:15)
[2018-06-11] MEDS ORDERED: OXYCODONE-ACETAMINOPHEN 5-325 MG TABLET ONE (15:03)
[2018-06-11 16:29] VITALS: BP 107/71
== END 2018-06-11 16:00 | disposition home or self-care (01) ==
LOC: OROUT 10:09
PROVIDERS: ATTEND Orthopaedic Surgery
DX: G57.52 Tarsal tunnel syndrome, left lower limb (principal); M79.672 Pain in left foot; M19.90 Unspecified osteoarthritis, unspecified site; E11.9 Type 2 diabetes mellitus without complications; Z79.899 Other long term (current) drug therapy; Z79.84 Long term (current) use of oral hypoglycemic drugs
CPT/HCPCS: 93005; 36415; 82962; 85027; 81025; 80048; 81001; 83036; 71046; 93010; 28035; J2250; J3490 ×2; J3010; J2060; J0690; 1470

== ENCOUNTER 2018-06-12 16:51 | Emergency (ER) | payer MEDICAID ==
[2018-06-12 17:11] VITALS: BP 127/81
--- NOTE | 2018-06-12 17:33 | ER Document Report ---
ED General - General Chief Complaint: Foot Pain Stated Complaint: FOOT PAIN Time Seen by Provider: 06/12/18 17:16 Notes: Patient had foot surgery performed by Dr. Felder yesterday. Presents the emergency department for pain in her lower left extremity. She states that she has run out of her Percocet and she is also on pain management. She was unable to fill her medications provided by Dr. Felder due to her pain management contract. Apparently, she was supposed to have her Percocets increased from 7.5 mg to 10 mg and there was problems with the paperwork resulting in her not having her medications filled now she has no medications and she presents with pain. She also states that she felt like she paniced due to the pain resulting in in having problems swallowing and breathing but all that is resolved in the emergency department. TRAVEL OUTSIDE OF THE [place] IN LAST 30 DAYS: No - Related Data Allergies/Adverse Reactions: No Known Allergies Allergy (Verified 06/12/18 16:52) Past Medical History - Social History Smoking Status: Unknown if Ever Smoked Family History: Arthritis, CAD, CVA, Hyperlipidemia, Hypertension Patient has suicidal ideation: No Patient has homicidal ideation: No - Past Medical History Cardiac Medical History: Denies: Hx Coronary Artery Disease, Hx Heart Attack, Hx Hypertension Pulmonary Medical History: Denies: Hx Asthma, Hx Bronchitis, Hx COPD, Hx Pneumonia Neurological Medical History: Denies: Hx Cerebrovascular Accident, Hx Seizures Endocrine Medical History: Reports: Hx Diabetes Mellitus Type 2 - w/neuropathy Renal/ Medical History: Denies: Hx Peritoneal Dialysis Musculoskeletal Medical History: Reports Hx Arthritis - RA, Restless leg, Reports Hx Gout, Reports Hx Musculoskeletal Trauma Traumatic Medical History: Reports: Hx Fractures - right toes 4th and 5th Past Surgical History: Reports: Hx Section, Hx Orthopedic Surgery - L wrist cyst - Immunizations Immunizations up to date: Yes Hx Diphtheria, Pertussis, Tetanus Vaccination: No Review of Systems - Review of Systems Constitutional: No symptoms reported EENT: No symptoms reported Cardiovascular: No symptoms reported Respiratory: No symptoms reported Gastrointestinal: No symptoms reported Genitourinary: No symptoms reported Female Genitourinary: No symptoms reported Musculoskeletal: See HPI Skin: No symptoms reported Hematologic/Lymphatic: No symptoms reported Neurological/Psychological: See HPI, Anxiety Physical Exam - Vital signs Vitals: Temp Pulse Resp BP Pulse Ox 98.7 F 88 16 127/81 H 95 06/12/18 17:02 06/12/18 17:02 06/12/18 17:02 06/12/18 17:02 06/12/18 17:02 - General General appearance: Appears well, Alert - Respiratory Respiratory status: No respiratory distress Breath sounds: Normal - Cardiovascular Rhythm: Regular Heart sounds: Normal auscultation - Extremities General upper extremity: Normal inspection General lower extremity: Other - Coban around L ankle and foot, removed, mild swelling, no erythema, +2 DP pulse, sensation in tact. Bandage over medial aspect of L foot, no bleeding noted. Course - Re-evaluation Re-evalutation: 06/12/18 17:31 Coban was rewrapped around dressing. Dr. Felder has seen patient earlier today due to minor bleeding there is no active bleeding at this time. Patient neurologically intact. No signs of infection. Patient in no distress in the emergency department. I discussed with patient she needs to talk to pain management to have her prescriptions filled. In the meantime, I will provide her with one Percocet and a Toradol shot. Also discussed that she can use 1 g of Tylenol together every 8 hours with 800mg of Ibuprofen to help with pain relief until she obtains her narcotic prescription. - Vital Signs Vital signs: Temp Pulse Resp BP Pulse Ox 98.7 F 88 16 127/81 H 95 06/12/18 17:02 06/12/18 17:02 06/12/18 17:02 06/12/18 17:02 06/12/18 17:02 Discharge - Discharge Clinical Impression: Encounter for wound re-check Condition: Good Disposition: HOME, SELF-CARE Additional Instructions: Please take 1 g of Tylenol with 800 mg of ibuprofen every 8 hours as needed for pain control. Do not take any other pain medications if your using this mixture of drugs for pain control. Please call pain management as soon as possible to discuss obtaining your narcotic prescription. Referrals: JEN FELDER MD [ACTIVE STAFF] - Follow up as needed
[2018-06-12] MEDS ORDERED: KETOROLAC TROMETHAMINE INJ/PF 30 MG/1 ML SDV IV ONE (17:36)
[2018-06-12] MEDS ORDERED: OXYCODONE-ACETAMINOPHEN 5-325 MG TABLET PO ONE (17:37)
== END 2018-06-12 17:55 | disposition home or self-care (01) ==
LOC: ER 16:51
DX: Z48.89 Encounter for other specified surgical aftercare (principal); F41.9 Anxiety disorder, unspecified; E11.40 Type 2 diabetes mellitus with diabetic neuropathy, unspecified; Z79.891 Long term (current) use of opiate analgesic
CPT/HCPCS: 99283; 96374; J1885

== ENCOUNTER 2018-06-21 07:52 | Emergency (ER) | payer MEDICAID ==
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
--- NOTE | 2018-06-21 08:16 | ER Document Report ---
HPI - HPI Pain Level: 4 - REPRODUCTIVE Reproductive: DENIES: : Past Medical History - Social History Family History: Arthritis, CAD, CVA, Hyperlipidemia, Hypertension - Past Medical History Cardiac Medical History: Denies: Hx Coronary Artery Disease, Hx Heart Attack, Hx Hypertension Pulmonary Medical History: Denies: Hx Asthma, Hx Bronchitis, Hx COPD, Hx Pneumonia Neurological Medical History: Denies: Hx Cerebrovascular Accident, Hx Seizures Endocrine Medical History: Reports: Hx Diabetes Mellitus Type 2 - w/neuropathy Renal/ Medical History: Denies: Hx Peritoneal Dialysis Musculoskeletal Medical History: Reports Hx Arthritis - RA, Restless leg, Reports Hx Gout, Reports Hx Musculoskeletal Trauma Traumatic Medical History: Reports: Hx Fractures - right toes 4th and 5th Past Surgical History: Reports: Hx Section, Hx Orthopedic Surgery - L wrist cyst - Immunizations Immunizations up to date: Yes Hx Diphtheria, Pertussis, Tetanus Vaccination: No Vertical Provider Document - INFECTION CONTROL TRAVEL OUTSIDE OF THE [place] IN LAST 30 DAYS: No Course - Vital Signs Vital signs: Temp Pulse Resp BP Pulse Ox 98.1 F 92 16 103/77 99 06/21/18 07:55 06/21/18 07:55 06/21/18 07:55 06/21/18 07:55 06/21/18 07:55 Discharge - Discharge Referrals: JARON ANAND DO [Primary Care Provider] - Follow up as needed
--- NOTE | 2018-06-21 09:54 | RADIOLOGY REPORT (SQ) ---
EXAM DESCRIPTION: CT HEAD WITHOUT COMPLETED DATE/TIME: 06/21/2018 9:24 am REASON FOR STUDY: headache COMPARISON: None. TECHNIQUE: Axial images acquired through the brain without intravenous contrast. Images reviewed wi th bone, brain and subdural windows. Images stored on PACS. All CT scanners at this facility use dose modulation, iterative reconstruction, and/or weight based d osing when appropriate to reduce radiation dose to as low as reasonably achievable (ALARA). [facility]: Dose Right [facility]: CareDose [facility]: Dose Right [facility]: Teradose 4D [facility]: [employer] RADIATION DOSE: CT Rad equipment meets quality standard of care and radiation dose reduction techniq ues were employed. CTDIvol: 53.2 mGy. DLP: 1124 mGy-cm. mGy. LIMITATIONS: None. FINDINGS: VENTRICLES: Normal size and contour. CEREBRUM: No masses. No hemorrhage. No midline shift. No evidence for acute infarction. Normal gra y/white matter differentiation. No areas of low density in the white matter. CEREBELLUM: No masses. No hemorrhage. No alteration of density. No evidence for acute infarction. EXTRAAXIAL SPACES: No fluid collections. No masses. ORBITS AND GLOBE: No intra- or extraconal masses. Normal contour of globe without masses. CALVARIUM: No fracture. PARANASAL SINUSES: No fluid or mucosal thickening. SOFT TISSUES: No mass or hematoma. OTHER: No other significant finding. IMPRESSION: NORMAL BRAIN CT WITHOUT CONTRAST. EVIDENCE OF ACUTE STROKE: NO. COMMENT: Quality ID # 436: Final reports with documentation of one or more dose reduction techniques (e.g., Automated exposure control, adjustment of the mA and/or kV according to patient size, use of iterative reconstruction technique) TECHNICAL DOCUMENTATION: JOB ID: [id number] [employer]- All Rights Reserved Reading location - IP/workstation name: [email or web address]
--- NOTE | 2018-06-21 10:19 | RADIOLOGY REPORT (SQ) ---
EXAM DESCRIPTION: CT CERVICAL SPINE WITHOUT COMPLETED DATE/TIME: 06/21/2018 9:24 am REASON FOR STUDY: wet ceiling fell on head, left neck and headache COMPARISON: 2014. TECHNIQUE: Axial images acquired through the cervical spine without intravenous contrast. Images re viewed with lung, soft tissue and bone windows. Reconstructed coronal and sagittal MPR images review ed. Images stored on PACS. All CT scanners at this facility use dose modulation, iterative reconstruction, and/or weight based d osing when appropriate to reduce radiation dose to as low as reasonably achievable (ALARA). [facility]: Dose Right [facility]: CareDose [facility]: Dose Right [facility]: Teradose 4D [facility]: [employer] RADIATION DOSE: CT Rad equipment meets quality standard of care and radiation dose reduction techniq ues were employed. CTDIvol: 19.3 mGy. DLP: 352 mGy-cm. mGy. LIMITATIONS: None. FINDINGS: ALIGNMENT: Anatomic. MINERALIZATION: Normal. VERTEBRAL BODIES: No fractures or dislocation. DISCS: No significant disc disease. FACETS, LATERAL MASSES, POSTERIOR ELEMENTS: No fractures. No dislocation. No acute findings. HARDWARE: None in the spine. VISUALIZED RIBS: No fractures. LUNG APICES AND SOFT TISSUES: No significant or acute findings. OTHER: No other significant finding. IMPRESSION: NO ACUTE OR SIGNIFICANT FINDINGS IN THE CERVICAL SPINE. TECHNICAL DOCUMENTATION: JOB ID: [id number] Quality ID # [id number]: Final reports with documentation of one or more dose reduction techniques (e.g., Au tomated exposure control, adjustment of the mA and/or kV according to patient size, use of iterative reconstruction technique) 2010 [employer]- All Rights Reserved Reading location - IP/workstation name: [email or web address]
[2018-06-21] MEDS: ACETAMINOPHEN 325 MG TABLET PO ONE ×2 (10:26→10:28)
[2018-06-21 10:43] VITALS: BP 110/67
== END 2018-06-21 10:43 | disposition home or self-care (01) ==
LOC: ER 07:52
DX: S16.1XXA Strain of muscle, fascia and tendon at neck level, initial encounter (principal); S09.90XA Unspecified injury of head, initial encounter; X37.0XXA Hurricane, initial encounter; Y92.009 Unspecified place in unspecified non-institutional (private) residence as the place of occurrence of the external cause; E11.40 Type 2 diabetes mellitus with diabetic neuropathy, unspecified
CPT/HCPCS: 70450; 72125; 99284

== ENCOUNTER 2018-07-25 05:13 | Day surgery (SDC) | payer MEDICAID ==
--- NOTE | 2018-07-18 09:32 | RADIOLOGY REPORT (SQ) ---
EXAM DESCRIPTION: CHEST PA/LATERAL COMPLETED DATE/TIME: 07/18/2018 9:23 am REASON FOR STUDY: PRE-OP COMPARISON: 10/23/2017. EXAM PARAMETERS: NUMBER OF VIEWS: two views TECHNIQUE: Digital Frontal and Lateral radiographic views of the chest acquired. RADIATION DOSE: NA LIMITATIONS: none FINDINGS: LUNGS AND PLEURA: No opacities, masses or pneumothorax. No pleural effusion. MEDIASTINUM AND HILAR STRUCTURES: No masses or contour abnormalities. HEART AND VASCULAR STRUCTURES: Heart normal size. No evidence for failure. BONES: No acute findings. HARDWARE: None in the chest. OTHER: No other significant finding. IMPRESSION: NO SIGNIFICANT RADIOGRAPHIC FINDING IN THE CHEST. TECHNICAL DOCUMENTATION: JOB ID: [id number] [employer]- All Rights Reserved Reading location - IP/workstation name: [email or web address]-[email or web address]
[2018-07-18 10:12] LABS: HEMATOCRIT 39.8 % (36.0-47.0); HEMOGLOBIN 13.5 g/dL (12.0-15.5); MEAN CORPUSCULAR HGB CONC 33.9 g/dL (32.0-36.0); MEAN CORPUSCULAR VOLUME 89 fl (80-97); PLATELET COUNT 259 10^3/uL (150-450); RED BLOOD COUNT 4.49 10^6/uL (3.72-5.28); RED CELL DISTRIBUTION WIDTH 13.8 % (11.5-14.0); WHITE BLOOD COUNT 7.9 10^3/uL (4.0-10.5)
[2018-07-18 10:14] LABS: APPEARANCE,URINE SLIGHTLY-CLOUDY; BILIRUBIN,URINE NEGATIVE (NEGATIVE); COLOR,URINE YELLOW; GLUCOSE, URINE NEGATIVE (NEGATIVE); KETONES,URINE NEGATIVE (NEGATIVE); LEUKOCYTE ESTERASE,URINE NEGATIVE (NEGATIVE); NITRITE,URINE NEGATIVE (NEGATIVE); PROTEIN,URINE NEGATIVE (NEGATIVE); URINE SPECIFIC GRAVITY 1.023; UROBILINOGEN,URINE NEGATIVE mg/dL (<2.0)
[2018-07-18 10:39] LABS: ANION GAP 11 (5-19); BLOOD UREA NITROGEN 8 mg/dL (7-20); CALCIUM 9.9 mg/dL (8.4-10.2); CARBON DIOXIDE 27 mmol/L (22-30); CHLORIDE 104 mmol/L (98-107); GLUCOSE 124 mg/dL (75-110); POTASSIUM 4.1 mmol/L (3.6-5.0); SODIUM 142.3 mmol/L (137-145)
--- NOTE | 2018-07-18 19:22 | EKG REPORT ---
SEVERITY:- NORMAL ECG - SINUS RHYTHM : Confirmed by: Klarissa Mcknight MD 18-Jul-2018 19:21:36
[~2018-07-25 05:13] MED LIST changes: -CEFAZOLIN 2 GM/D5W RTU 2 GM/50 ML RTUPB IV ONE; +LACTATED RINGERS 1000 ML IV PRN; +LIDOCAINE 0.5% INJ-PF (5 MG/ML) 50 ML SDV SUBCUT PRN; -NORMAL SALINE 1000 ML 1,000 ML IV PRN
[2018-07-25] MEDS ORDERED: LIDOCAINE 1% INJ-PF (10 MG/ML) 30 ML SDV ONE (06:42)
[2018-07-25] MEDS ORDERED: BUPIVACAINE HCL 0.25% /EPINEPHRINE INJ/PF 30 ML SDV ONE (06:43)
[2018-07-25] MEDS ORDERED: KETOROLAC TROMETHAMINE 60 MG/2 ML SDV ONE (06:59)
[2018-07-25] MEDS ORDERED: FENTANYL CITRATE INJ/PF 100 MCG/2 ML AMPUL ONE (06:59)
[2018-07-25] MEDS ORDERED: ONDANSETRON HCL INJ/PF 4 MG/2 ML SDV ONE (06:59)
[2018-07-25] MEDS ORDERED: MIDAZOLAM 2 MG/2 ML INJ ONE (06:59)
[2018-07-25] MEDS ORDERED: ACETAMINOPHEN 1,000 MG/100 ML RTUPB IV ONE (07:00)
[2018-07-25] MEDS ORDERED: PROPOFOL INJ 200 MG/20 ML VIAL IV ONE (07:00)
[2018-07-25] MEDS ORDERED: DIPHENHYDRAMINE HCL 50 MG/ML VIAL IV PRN (07:45)
[2018-07-25] MEDS ORDERED: PROMETHAZINE HCL INJ 25 MG/1 ML VIAL IV PRN ×2 (07:45)
[2018-07-25] MEDS ORDERED: FENTANYL CITRATE INJ/PF 100 MCG/2 ML AMPUL IV PRN ×3 (07:45)
[2018-07-25] MEDS ORDERED: ONDANSETRON HCL INJ/PF 4 MG/2 ML SDV IV PRN (07:45)
[2018-07-25] MEDS ORDERED: MEPERIDINE HCL/PF INJ 25 MG/1 ML DISP.SYRIN IV PRN (07:45)
[2018-07-25] MEDS ORDERED: MORPHINE SULFATE 10 MG/ML INJ IV PRN (07:45)
[2018-07-25] MEDS ORDERED: OXYCODONE-ACETAMINOPHEN 5-325 MG TABLET PO PRN ×2 (07:45)
--- NOTE | 2018-07-25 07:58 | Discharge Summary ---
Discharge Summary (SDC) - Discharge Final Diagnosis: Right tarsal tunnel syndrome Date of Surgery: 07/25/18 Discharge Date: 07/25/18 Condition: Good Treatment or Instructions: Keep dressing dry Prescriptions: Oxycodone HCl [Roxicodone] 5 mg PO Q6 PRN #40 tablet PRN Reason: Referrals: LEILA SPICER PA-C [Primary Care Provider] - Discharge Diet: As Tolerated, Regular Respiratory Treatments at Home: Deep Breathing/Coughing Discharge Activity: Balance Activity w/Rest, No Driving, No tub bath Home Care Assistance: None Needed Report the Following to Your Physician Immediately: Shortness of Breath, Fever over 101 Degrees, Drainage-Foul Smelling
--- NOTE | 2018-07-25 07:59 | Operative Report ---
Operative Report DATE OF SURGERY: 07/25/18 PREOPERATIVE DIAGNOSIS: Right tarsal tunnel syndrome OPERATION: Right tarsal tunnel release SURGEON: JEN FELDER ANESTHESIA: GA ESTIMATED BLOOD LOSS: Minimal PROCEDURE: With the patient supine on the operative table the right lower extremities prepped and draped in a sterile fashion. The limb is elevated for exsanguination tourniquet inflated 280 torr. A curvilinear incision was made beginning posterior to the medial malleolus and extending distally and anteriorly. Sharp dissection was carried incision down to the retinaculum surrounding the posterior tibial neurovascular bundle sheath. This is divided. Its divided proximally and distally such that the neurovascular bundle was completely depressed. At this point the tourniquet is deflated. Hemostasis obtained with electrocautery. The wound is irrigated with bulb lavage. Disclosures interrupted Vicryl followed by nylon. A sterile compressive dressing was applied and the patient's return to PACU in satisfactory condition.
[2018-07-25] MEDS ORDERED: OXYCODONE HCL IR 5 MG TABLET PO PRN (08:43)
[2018-07-25] MEDS ORDERED: OXYCODONE HCL IR 5 MG TABLET ONE (08:45)
[2018-07-25 09:49] VITALS: BP 125/78
[2018-07-25] MEDS ORDERED: DEXAMETHASONE SOD PHOSPHATE INJ 4 MG/1 ML VIAL ONE (16:09)
== END 2018-07-25 09:35 | disposition home or self-care (01) ==
LOC: OROUT 05:13
PROVIDERS: ATTEND Orthopaedic Surgery
DX: G57.52 Tarsal tunnel syndrome, left lower limb (principal); E11.9 Type 2 diabetes mellitus without complications; M10.9 Gout, unspecified; F17.210 Nicotine dependence, cigarettes, uncomplicated; Z79.899 Other long term (current) drug therapy; Z79.84 Long term (current) use of oral hypoglycemic drugs; Z01.818 Encounter for other preprocedural examination
CPT/HCPCS: 93005; 36415; 82962; 85027; 80048; 81001; 83036; 71046; 93010; 28035; J2250; J3490 ×3; J1100; J1885; J3010; J2405; J2704; J0690; J0131; 1810

== ENCOUNTER 2018-10-15 08:21 | Day surgery (SDC) | payer MEDICAID ==
[~2018-10-15 08:21] MED LIST changes: -CEFAZOLIN 2 GM/D5W RTU 2 GM/50 ML RTUPB IV PRN; -LACTATED RINGERS 1000 ML IV PRN; -LIDOCAINE 0.5% INJ-PF (5 MG/ML) 50 ML SDV SUBCUT PRN; +PROPOFOL INJ 200 MG/20 ML VIAL IV ONE
[2018-10-15] MEDS ORDERED: PROPOFOL INJ 200 MG/20 ML VIAL IV ONE (10:13)
[2018-10-15 10:39] VITALS: BP 114/68
--- NOTE | 2018-10-15 12:48 | Operative Report ---
Operative Report DATE OF SURGERY: 10/15/18 Operative Report: The risks, benefits and alternatives of the procedure including the risk of bleeding, perforation requiring surgery have been explained to the patient in detail and informed consent has been obtained. The patient is taken back to the endoscopy suite and placed in the left, lateral decubital position. Timeout was called. Propofol medication is administered. A rectal examination is done which did not reveal any masses, tears or fissures. An Olympus videoscope was introduced into the patient's rectum. The scope was then carefully advanced all the way to the cecum. The cecum was identified by the usual anatomical landmarks including the ileocecal valve as well as the appendiceal office. Photodocumentation was obtained. The scope was then sequentially pulled back via the various segments of the colon including the ascending colon, hepatic flexure, transverse colon, splenic flexure, descending colon and finally into the rectosigmoid portions of the colon. Retroflexion maneuver is performed. PREOPERATIVE DIAGNOSIS: Colorectal cancer screening POSTOPERATIVE DIAGNOSIS: Transverse colon polypremoved via snare polypectomy and retrieved OPERATION: Colonoscopy with snare polypectomy SURGEON: RADHA LINCOLN ANESTHESIA: LMAC TISSUE REMOVED OR ALTERED: As noted above. COMPLICATIONS: None. ESTIMATED BLOOD LOSS: None. INTRAOPERATIVE FINDINGS: As noted above. PROCEDURE: Patient tolerated procedure well.. No immediate postprocedure complications are noted. Patient discharged in good condition. Discharge date 10/15/2018. Discharge diet: Regular. Discharge activity: Regular. 2-3-week follow-up to discuss findings. Patient is instructed to call the office or proceed to the emergency room should there be any further problems or questions. 3-5-year surveillance colonoscopy. I will wait on the pathology.
== END 2018-10-15 10:36 | disposition home or self-care (01) ==
LOC: END 08:21
PROVIDERS: ATTEND Internal Medicine Gastroenterology
DX: Z12.11 Encounter for screening for malignant neoplasm of colon (principal); D12.3 Benign neoplasm of transverse colon; E11.9 Type 2 diabetes mellitus without complications; I10 Essential (primary) hypertension; E78.5 Hyperlipidemia, unspecified; M10.9 Gout, unspecified; R06.02 Shortness of breath; Z79.84 Long term (current) use of oral hypoglycemic drugs; Z87.891 Personal history of nicotine dependence; Z79.899 Other long term (current) drug therapy
CPT/HCPCS: 45385; 82962; J2704

== ENCOUNTER 2018-11-16 08:11 | Emergency (ER) | payer MEDICAID ==
[2018-11-16 08:16] VITALS: BP 115/66
== END 2018-11-16 09:00 | disposition left against medical advice (07) ==
LOC: ER 08:11
DX: Z53.21 Procedure and treatment not carried out due to patient leaving prior to being seen by health care provider (principal)

== ENCOUNTER → 2019-01-02 | Outpatient (CLI) | payer MEDICAID ==
[2019-01-02 08:14] LABS: APPEARANCE,URINE SLIGHTLY-CLOUDY; BILIRUBIN,URINE NEGATIVE (NEGATIVE); COLOR,URINE YELLOW; GLUCOSE, URINE NEGATIVE (NEGATIVE); KETONES,URINE NEGATIVE (NEGATIVE); LEUKOCYTE ESTERASE,URINE TRACE (NEGATIVE); NITRITE,URINE NEGATIVE (NEGATIVE); PROTEIN,URINE NEGATIVE (NEGATIVE); UROBILINOGEN,URINE NEGATIVE mg/dL (<2.0)
[2019-01-02 08:26] LABS: ABSOLUTE BASOPHILS # (AUTO) 0.1 10^3/uL (0.0-0.2); ABSOLUTE EOSINOPHILS # (AUTO) 0.1 10^3/uL (0.0-0.6); ABSOLUTE LYMPHOCYTES (AUTO) 2.2 10^3/uL (0.5-4.7); ABSOLUTE MONOCYTES (AUTO) 0.5 10^3/uL (0.1-1.4); ABSOLUTE NEUT (AUTO) 3.6 10^3/uL (1.7-8.2); BASOPHILS % (AUTO) 1.4 % (0-2); EOSINOPHILS % (AUTO) 1.9 % (0-6); HEMATOCRIT 38.5 % (36.0-47.0); HEMOGLOBIN 13.1 g/dL (12.0-15.5); LYMPHOCYTES % (AUTO) 34.3 % (13-45); MEAN CORPUSCULAR HEMOGLOBIN 30.1 pg (27.0-33.4); MEAN CORPUSCULAR HGB CONC 34.1 g/dL (32.0-36.0); MEAN CORPUSCULAR VOLUME 88 fl (80-97); MONOCYTES % (AUTO) 7.3 % (3-13); PLATELET COUNT 282 10^3/uL (150-450); RED BLOOD COUNT 4.35 10^6/uL (3.72-5.28); RED CELL DISTRIBUTION WIDTH 13.8 % (11.5-14.0); SEGMENTED NEUTROPHILS % (AUTO) 55.1 % (42-78); TOTAL CELLS COUNTED % (AUTO) 100 %; WHITE BLOOD COUNT 6.5 10^3/uL (4.0-10.5)
--- NOTE | 2019-01-02 08:32 | EKG REPORT ---
SEVERITY:- NORMAL ECG - SINUS RHYTHM : Confirmed by: Klarissa Mcknight MD 02-Jan-2019 08:31:22
--- NOTE | 2019-01-02 09:22 | RADIOLOGY REPORT (SQ) ---
EXAM DESCRIPTION: CHEST PA/LATERAL COMPLETED DATE/TIME: 01/02/2019 8:51 am REASON FOR STUDY: PRE-OP COMPARISON: 07/18/2018 EXAM PARAMETERS: NUMBER OF VIEWS: two views TECHNIQUE: Digital Frontal and Lateral radiographic views of the chest acquired. RADIATION DOSE: NA LIMITATIONS: none FINDINGS: LUNGS AND PLEURA: No opacities, masses or pneumothorax. No pleural effusion. MEDIASTINUM AND HILAR STRUCTURES: No masses or contour abnormalities. HEART AND VASCULAR STRUCTURES: Heart normal size. No evidence for failure. BONES: No acute findings. HARDWARE: None in the chest. OTHER: No other significant finding. IMPRESSION: NO SIGNIFICANT RADIOGRAPHIC FINDING IN THE CHEST. TECHNICAL DOCUMENTATION: JOB ID: [id number] [employer]- All Rights Reserved Reading location - IP/workstation name: [email or web address]
[2019-01-02 09:32] LABS: ANION GAP 12 (5-19); BLOOD UREA NITROGEN 11 mg/dL (7-20); CALCIUM 10.4 mg/dL (8.4-10.2); CARBON DIOXIDE 18 mmol/L (22-30); CHLORIDE 107 mmol/L (98-107); GLUCOSE 158 mg/dL (75-110); POTASSIUM 4.1 mmol/L (3.6-5.0); SODIUM 136.9 mmol/L (137-145)
== END ==
LOC: OD 07:21
PROVIDERS: ATTEND Orthopaedic Surgery
DX: Z01.812 Encounter for preprocedural laboratory examination (principal); Z01.810 Encounter for preprocedural cardiovascular examination; Z01.811 Encounter for preprocedural respiratory examination; M17.11 Unilateral primary osteoarthritis, right knee; E11.9 Type 2 diabetes mellitus without complications
CPT/HCPCS: 36415; 71046; 80048; 81001; 83036; 85025; 93005; 93010

== ENCOUNTER 2019-01-30 06:29 | Inpatient (IN) | payer MEDICAID ==
[~2019-01-30 06:29] MED LIST changes: +BUPIVACAINE INJ/PF LIPOSOME/PF 266 MG/20 ML SDV INJ PRN; +CEFAZOLIN INJ 1 GM VIAL IV PRN; +IBUPROFEN 800 MG in NORMAL SALINE 250 ML IV PRN; +LACTATED RINGERS 1000 ML IV PRN; +LIDOCAINE 0.5% INJ-PF (5 MG/ML) 50 ML SDV SUBCUT PRN; +OXYCODONE HCL SR 10 MG TABLET PO PRN; +PANTOPRAZOLE SODIUM 20 MG TABLET.DR PO PRN; -PROPOFOL INJ 200 MG/20 ML VIAL IV ONE; +VANCOMYCIN HCL 1,000 MG in DEXTROSE 5%-WATER 250 ML IV PRN
[2019-01-30] MEDS ORDERED: MIDAZOLAM 2 MG/2 ML INJ ONE (06:53)
[2019-01-30] MEDS ORDERED: LIDOCAINE 2% INJ-PF (20 MG/ML) 10 ML AMPUL ONE (06:53)
[2019-01-30] MEDS ORDERED: EPHEDRINE SULFATE INJ 50 MG/1 ML AMPULE ONE (06:53)
[2019-01-30] MEDS ORDERED: FENTANYL CITRATE INJ/PF 100 MCG/2 ML AMPUL ONE (06:53)
[2019-01-30] MEDS ORDERED: PROPOFOL INJ 200 MG/20 ML VIAL IV ONE (06:54)
[2019-01-30] MEDS ORDERED: OXYCODONE HCL SR 10 MG TABLET PO ONE (06:57)
[2019-01-30] MEDS ORDERED: PANTOPRAZOLE SODIUM 20 MG TABLET.DR PO ONE (06:57)
[2019-01-30] MEDS ORDERED: CEFAZOLIN INJ 1 GM VIAL ONE (06:58)
[2019-01-30] MEDS ORDERED: ONDANSETRON HCL INJ/PF 4 MG/2 ML SDV ONE (07:24)
[2019-01-30] MEDS ORDERED: THROMBIN (BOVINE) TOPICAL 20000 UNIT VIAL ONE (08:57)
[2019-01-30] MEDS ORDERED: BUPIVACAINE HCL 0.5%-EPI 1:200000 INJ/PF 30 ML VIAL ONE (08:57)
[2019-01-30] MEDS ORDERED: ONDANSETRON HCL INJ/PF 4 MG/2 ML SDV IV PRN ×2 (09:38→10:15)
[2019-01-30] MEDS ORDERED: MEPERIDINE HCL/PF INJ 25 MG/1 ML DISP.SYRIN IV PRN (09:38)
[2019-01-30] MEDS ORDERED: PROMETHAZINE HCL INJ 25 MG/1 ML VIAL IV PRN ×2 (09:38)
[2019-01-30] MEDS ORDERED: FENTANYL CITRATE INJ/PF 100 MCG/2 ML AMPUL IV PRN ×3 (09:38)
[2019-01-30] MEDS ORDERED: OXYCODONE-ACETAMINOPHEN 5-325 MG TABLET PO PRN ×2 (09:38)
[2019-01-30] MEDS ORDERED: DIPHENHYDRAMINE HCL 50 MG/ML VIAL IV PRN ×2 (09:38→10:15)
--- NOTE | 2019-01-30 10:14 | Operative Report ---
Operative Report DATE OF SURGERY: 01/30/19 PREOPERATIVE DIAGNOSIS: Right knee arthritis OPERATION: Right knee arthroplasty SURGEON: JEN FELDER ANESTHESIA: Spinal TISSUE REMOVED OR ALTERED: Bone to pathology ESTIMATED BLOOD LOSS: 100 PROCEDURE: Implants used: Femur: Jered triathlon size 5 CR femur, uncemented Tibia: Size 4, uncemented Tibial liner: 11 mm CS insert Patella: 35 mm patella, uncemented Procedure with the patient supine on the operating table the right the limb is prepped and draped in a sterile fashion. The limb was elevated for exsanguination and the tourniquet inflated to 280 torr. A standard midline median parapatellar approach the knee is taken. Access is gained to the femoral canal through the intercondylar notch. Intramedullary alignment instrumentation used to resect 10 mm of distal femur in 5 of valgus. Sizing guide indicated a size 5 femur. Appropriate cutting jig is then used to fashion anterior posterior and chamfer cuts. A trial reduction femurs performed and this is judged to be adequate. Attention was next turned to the tibia. Using an extra medullary alignment system 9 millimeters was resected off the lateral tibial plateau. This is sized to a size 4 tibia. A trial reduction was now performed with a 5 femur and a 4 tibia using a 11 millimeters spacer. It is full extension and central patellofemoral tracking. The articular surface the patella was next resected using an oscillating saw. All trial implants were removed. the above implants are impacted into place. the tourniquet was deflated hemostasis obtained the wound is then closed in layers using interrupted Vicryl followed by catherine. A sterile compressive dressing was applied and the patient returned to recovery room in satisfactory condition.
[2019-01-30] MEDS ORDERED: MAG HYDROX/AL HYDROX/SIMETH SUSP 30 ML UDCUP PO PRN (10:15)
[2019-01-30] MEDS ORDERED: MORPHINE SULFATE 10 MG/ML INJ IV PRN ×3 (10:15)
[2019-01-30] MEDS ORDERED: ONDANSETRON 4 MG TAB.RAPDIS PO PRN (10:15)
[2019-01-30] MEDS ORDERED: RINGERS SOLUTION,LACTATED 1,000 ML IV PRN (10:15)
[2019-01-30] MEDS ORDERED: HYDROMORPHONE HCL INJ/PF 2 MG/ML AMPULE ONE ×2 (10:23→11:16)
[2019-01-30] MEDS: FENTANYL CITRATE INJ/PF 100 MCG/2 ML AMPUL ONE ×2 (10:47→11:07)
[2019-01-30] MEDS ORDERED: DEXTROSE 50%-WATER SYRINGE 25 GM/50 ML DOSE IV PRN (11:30)
[2019-01-30] MEDS ORDERED: DEXTROSE 50%-WATER SYRINGE 12.5 GM/25 ML DOSE IV PRN (11:30)
[2019-01-30] MEDS ORDERED: DEXTROSE 40% GEL 15 GM TUBE PO PRN (11:30)
[2019-01-30] MEDS ORDERED: GLUCAGON,HUMAN RECOMB 1 MG INJ IM PRN (11:30)
[2019-01-30] MEDS ORDERED: DEXTROSE 40% GEL 15 GM TUBE X 2 PO PRN (11:30)
--- NOTE | 2019-01-30 11:39 | RADIOLOGY REPORT (SQ) ---
EXAM DESCRIPTION: KNEE RIGHT 2 VIEWS COMPLETED DATE/TIME: 01/30/2019 11:08 am REASON FOR STUDY: Post OP -Long Cassette in PACU M17.11 UNILATERAL PRIMARY OSTEOARTHRITIS, RIGHT KN EE COMPARISON: None. NUMBER OF VIEWS: Two view(s). TECHNIQUE: Digital radiographic images of the right knee post-procedure. LIMITATIONS: None. FINDINGS: BONES: No worrisome or unexpected findings post-procedure. DEVICE: Total knee arthroplasty. SOFT TISSUES: No worrisome findings. Expected postoperative soft tissue changes. IMPRESSION: SATISFACTORY POSTOPERATIVE RIGHT KNEE. TECHNICAL DOCUMENTATION: JOB ID: [id number] [employer]- All Rights Reserved Reading location - IP/workstation name: [email or web address]
[2019-01-30] MEDS ORDERED: TRANEXAMIC ACID INJ/PF 1,000 MG/10 ML SDV IV ONE (12:00)
[2019-01-30] MEDS: MORPHINE SULFATE 10 MG/ML INJ IV PRN ×4 (13:11→23:54)
[2019-01-30] MEDS: PREGABALIN 100 MG CAPSULE PO SCH ×2 (13:14→21:33)
[2019-01-30] MEDS ORDERED: PREGABALIN 50 MG CAPSULE PO SCH (14:00)
[2019-01-30] MEDS: OXYCODONE HCL IR 5 MG TABLET PO PRN ×2 (14:41→21:32)
[2019-01-30] MEDS: INSULIN LISPRO 100 UNIT/ML 3 ML VIAL SUBCUT SCH ×2 (16:21→21:32)
[2019-01-30] MEDS: METFORMIN HCL 500 MG TABLET PO SCH (16:26)
[2019-01-30] MEDS ORDERED: (PENDING PHARMACY ID) (Metformin Hcl [Metformin Hcl Er] 500 MG) PO SCH (17:00)
[2019-01-30] MEDS: IBUPROFEN 800 MG in NORMAL SALINE 250 ML IV SCH (17:02)
[2019-01-30] MEDS: SENNOSIDES/DOCUSATE 8.6-50 MG 1 EACH TABLET PO SCH (18:38)
[2019-01-30] MEDS: SITAGLIPTIN PHOSPHATE 50 MG TABLET PO SCH (18:38)
[2019-01-30] MEDS: ZOLPIDEM TARTRATE 5 MG TABLET PO PRN (21:32)
[2019-01-30] MEDS: ACETAMINOPHEN 325 MG TABLET PO PRN (21:32)
[2019-01-30] MEDS: ATORVASTATIN CALCIUM 20 MG TABLET PO SCH (21:33)
[2019-01-30] MEDS ORDERED: VANCOMYCIN HCL 1,000 MG in DEXTROSE 5%-WATER 250 ML IV ONE (22:00)
[2019-01-30] MEDS ORDERED: ATORVASTATIN CALCIUM 40 MG TABLET PO SCH (22:00)
[2019-01-30] MEDS ORDERED: OXYCODONE HCL SR 10 MG TABLET PO SCH (22:00)
[2019-01-31] MEDS: MORPHINE SULFATE 10 MG/ML INJ IV PRN (01:33)
[2019-01-31] MEDS: IBUPROFEN 800 MG in NORMAL SALINE 250 ML IV SCH ×3 (01:33→17:24)
[2019-01-31 05:30] LABS: HEMATOCRIT 31.3 % (36.0-47.0); HEMOGLOBIN 10.5 g/dL (12.0-15.5); MEAN CORPUSCULAR HGB CONC 33.5 g/dL (32.0-36.0); MEAN CORPUSCULAR VOLUME 89 fl (80-97); PLATELET COUNT 195 10^3/uL (150-450); RED CELL DISTRIBUTION WIDTH 14.1 % (11.5-14.0); WHITE BLOOD COUNT 9.5 10^3/uL (4.0-10.5)
[2019-01-31 05:40] LABS: ANION GAP 9 (5-19); BLOOD UREA NITROGEN 8 mg/dL (7-20); CALCIUM 9.3 mg/dL (8.4-10.2); CARBON DIOXIDE 26 mmol/L (22-30); CHLORIDE 103 mmol/L (98-107); GLUCOSE 162 mg/dL (75-110); POTASSIUM 4.3 mmol/L (3.6-5.0); SODIUM 138.3 mmol/L (137-145)
[2019-01-31] MEDS: PREGABALIN 100 MG CAPSULE PO SCH ×3 (05:44→22:16)
[2019-01-31] MEDS: PANTOPRAZOLE SODIUM 40 MG TABLET.DR PO SCH (05:44)
--- NOTE | 2019-01-31 07:01 | PDOC PROGRESS REPORT ---
Subjective Progress Note for:: 01/31/19 Reason For Visit: RIGHT KNEE ARTHRITIS 53-year-old black female postop day 1 status post right knee arthroplasty. Patient with complaints of unrelenting unbearable pain in spite of oral, parenteral narcotics as well as IV ibuprofen. Physical Exam Vital Signs: Temp Pulse Resp BP Pulse Ox 37.7 C 93 16 114/59 L 92 01/31/19 00:10 01/31/19 00:10 01/30/19 17:00 01/31/19 00:10 01/31/19 00:10 Intake & Output 01/29/19 01/30/19 01/31/19 06:59 06:59 06:59 Intake Total 5370 Output Total 100 Balance 5270 Weight 106 kg General appearance: PRESENT: mild distress Head exam: PRESENT: normocephalic Respiratory exam: PRESENT: unlabored Cardiovascular exam: PRESENT: RRR Pulses: PRESENT: +1 pedal pulses bilateral Vascular exam: PRESENT: normal capillary refill GI/Abdominal exam: PRESENT: soft Rectal exam: PRESENT: deferred Extremities exam: PRESENT: other - Right lower extremity dressing clean dry and intact. Distal neurovascular examination is intact. Neurological exam: PRESENT: alert, awake, oriented to person, oriented to place, oriented to time, oriented to situation. ABSENT: motor sensory deficit Psychiatric exam: PRESENT: appropriate affect, normal mood. ABSENT: homicidal ideation, suicidal ideation Results Laboratory Results: 01/31/19 04:50 01/31/19 04:50 01/31/19 01/31/19 04:50 04:50 WBC 9.5 RBC 3.50 L Hgb 10.5 L Hct 31.3 L MCV 89 MCH 30.0 MCHC 33.5 RDW 14.1 H Plt Count 195 Sodium 138.3 Potassium 4.3 Chloride 103 Carbon Dioxide 26 Anion Gap 9 BUN 8 Creatinine 0.64 Est GFR ( Amer) > 60 Est GFR (Non-Af Amer) > 60 Glucose 162 H Calcium 9.3 Impressions: Knee X-Ray 01/30/19 10:16 IMPRESSION: SATISFACTORY POSTOPERATIVE RIGHT KNEE. Status: Imported from PACS Assessment & Plan - Diagnosis (1) Arthritis of right knee Is this a current diagnosis for this admission?: Yes Plan: 53-year-old female now postop day 1 status post right knee arthroplasty with an uneventful postoperative course except for complaints of pain. I think there is a background here of narcotic dependence and medication escalation. I have increased her OxyContin from 20-40 twice daily. I discontinued the use of morphine. I think the patient would do best at home where she can medicate as needed. We will wait and see what progress she makes with physical therapy this morning prior to making any decisions in this regard. - Time Time Spent with patient: 15-24 minutes Anticipated discharge: Home with Homehealth Within: within 24 hours
[2019-01-31] MEDS: INSULIN LISPRO 100 UNIT/ML 3 ML VIAL SUBCUT SCH ×4 (08:33→22:11)
[2019-01-31] MEDS: OXYCODONE HCL IR 5 MG TABLET PO PRN ×3 (08:33→21:00)
[2019-01-31] MEDS: METFORMIN HCL 500 MG TABLET PO SCH ×2 (08:33→17:24)
[2019-01-31] MEDS ORDERED: (PENDING PHARMACY ID) (Fenofibrate [Fenofibrate] 160 MG) PO SCH (10:00)
[2019-01-31] MEDS: SENNOSIDES/DOCUSATE 8.6-50 MG 1 EACH TABLET PO SCH ×2 (10:32→17:24)
[2019-01-31] MEDS: ASPIRIN 81 MG TABLET, ENT COATED PO SCH (10:32)
[2019-01-31] MEDS: PRENATAL VITAMIN W DHA CAPSULE PO SCH (10:32)
[2019-01-31] MEDS: ALLOPURINOL 100 MG TABLET PO SCH (10:32)
[2019-01-31] MEDS: OXYCODONE HCL SR 40 MG TABLET PO SCH ×2 (10:33→22:16)
[2019-01-31] MEDS: FENOFIBRATE NANOCRYSTALLIZED 145 MG TABLET PO SCH (10:34)
[2019-01-31] MEDS: ARIPIPRAZOLE 5 MG TABLET PO SCH (10:34)
[2019-01-31] MEDS: SITAGLIPTIN PHOSPHATE 50 MG TABLET PO SCH (17:24)
[2019-01-31] MEDS: ACETAMINOPHEN 325 MG TABLET PO PRN (21:01)
[2019-01-31] MEDS: ATORVASTATIN CALCIUM 20 MG TABLET PO SCH (22:16)
[2019-01-31] MEDS: ZOLPIDEM TARTRATE 5 MG TABLET PO PRN (22:16)
[2019-02-01] MEDS: IBUPROFEN 800 MG in NORMAL SALINE 250 ML IV SCH ×2 (03:03→09:33)
[2019-02-01] MEDS: ACETAMINOPHEN 325 MG TABLET PO PRN (03:03)
[2019-02-01] MEDS: OXYCODONE HCL IR 5 MG TABLET PO PRN ×3 (03:04→17:25)
[2019-02-01] MEDS: PANTOPRAZOLE SODIUM 40 MG TABLET.DR PO SCH (06:26)
[2019-02-01] MEDS: PREGABALIN 100 MG CAPSULE PO SCH ×3 (06:26→21:09)
[2019-02-01 06:43] LABS: HEMATOCRIT 25.7 % (36.0-47.0); HEMOGLOBIN 8.9 g/dL (12.0-15.5); MEAN CORPUSCULAR HEMOGLOBIN 30.6 pg (27.0-33.4); MEAN CORPUSCULAR HGB CONC 34.8 g/dL (32.0-36.0); MEAN CORPUSCULAR VOLUME 88 fl (80-97); PLATELET COUNT 191 10^3/uL (150-450); RED BLOOD COUNT 2.92 10^6/uL (3.72-5.28); RED CELL DISTRIBUTION WIDTH 13.9 % (11.5-14.0); WHITE BLOOD COUNT 7.7 10^3/uL (4.0-10.5)
--- NOTE | 2019-02-01 08:05 | PDOC PROGRESS REPORT ---
Subjective Progress Note for:: 02/01/19 Subjective:: Patient lying in bed comfortably. Still has difficulty moving her foot and knee according to the patient. Pain currently controlled. No issues overnight. Reason For Visit: RIGHT KNEE ARTHRITIS Physical Exam Vital Signs: Temp Pulse Resp BP Pulse Ox 98.7 F 94 20 122/60 93 02/01/19 00:07 02/01/19 00:07 02/01/19 00:07 02/01/19 00:07 02/01/19 00:07 Intake & Output 01/31/19 02/01/19 02/02/19 06:59 06:59 06:59 Intake Total 5370 2571 Output Total 100 Balance 5270 2571 Weight 106 kg 110.5 kg Musculoskeletal exam: PRESENT: other - Right knee: Dressing clean/dry/intact. Weakness with plantarflexion/dorsiflexion. Intact flexion extension of the toes. No calf tenderness. Results Laboratory Results: 02/01/19 06:14 01/31/19 04:50 02/01/19 06:14 WBC 7.7 RBC 2.92 L Hgb 8.9 L Hct 25.7 L MCV 88 MCH 30.6 MCHC 34.8 RDW 13.9 Plt Count 191 Impressions: Knee X-Ray 01/30/19 10:16 IMPRESSION: SATISFACTORY POSTOPERATIVE RIGHT KNEE. Assessment & Plan - Diagnosis (1) Arthritis of right knee Is this a current diagnosis for this admission?: Yes Plan: Patient status post right total knee arthroplasty. She is slowly progressing further and physical therapy. Increased pain medication has provided improvement. Plan is for possible discharge home today versus tomorrow depending on how patient progresses in therapy.
[2019-02-01] MEDS: INSULIN LISPRO 100 UNIT/ML 3 ML VIAL SUBCUT SCH ×4 (08:20→21:15)
[2019-02-01] MEDS: PRENATAL VITAMIN W DHA CAPSULE PO SCH (09:30)
[2019-02-01] MEDS: METFORMIN HCL 500 MG TABLET PO SCH ×2 (09:30→17:25)
[2019-02-01] MEDS: ASPIRIN 81 MG TABLET, ENT COATED PO SCH (09:31)
[2019-02-01] MEDS: ALLOPURINOL 100 MG TABLET PO SCH (09:31)
[2019-02-01] MEDS: OXYCODONE HCL SR 40 MG TABLET PO SCH ×2 (09:31→21:10)
[2019-02-01] MEDS: ARIPIPRAZOLE 5 MG TABLET PO SCH (09:32)
[2019-02-01] MEDS: SENNOSIDES/DOCUSATE 8.6-50 MG 1 EACH TABLET PO SCH ×2 (09:32→17:25)
[2019-02-01] MEDS: FENOFIBRATE NANOCRYSTALLIZED 145 MG TABLET PO SCH (09:33)
[2019-02-01] MEDS: SITAGLIPTIN PHOSPHATE 50 MG TABLET PO SCH (17:25)
[2019-02-01] MEDS: ATORVASTATIN CALCIUM 20 MG TABLET PO SCH (21:09)
[2019-02-02 00:06] VITALS: BP 114/67
[2019-02-02] MEDS: PREGABALIN 100 MG CAPSULE PO SCH (05:57)
[2019-02-02] MEDS: OXYCODONE HCL IR 5 MG TABLET PO PRN (05:57)
[2019-02-02] MEDS: PANTOPRAZOLE SODIUM 40 MG TABLET.DR PO SCH (05:57)
[2019-02-02 06:37] LABS: HEMATOCRIT 26.5 % (36.0-47.0); HEMOGLOBIN 9.1 g/dL (12.0-15.5); MEAN CORPUSCULAR HEMOGLOBIN 30.1 pg (27.0-33.4); MEAN CORPUSCULAR HGB CONC 34.2 g/dL (32.0-36.0); MEAN CORPUSCULAR VOLUME 88 fl (80-97); PLATELET COUNT 220 10^3/uL (150-450); RED BLOOD COUNT 3.01 10^6/uL (3.72-5.28); RED CELL DISTRIBUTION WIDTH 13.9 % (11.5-14.0); WHITE BLOOD COUNT 9.3 10^3/uL (4.0-10.5)
[2019-02-02] MEDS: INSULIN LISPRO 100 UNIT/ML 3 ML VIAL SUBCUT SCH (07:58)
[2019-02-02] MEDS: METFORMIN HCL 500 MG TABLET PO SCH (07:58)
[2019-02-02] MEDS: ASPIRIN 81 MG TABLET, ENT COATED PO SCH (09:11)
[2019-02-02] MEDS: ALLOPURINOL 100 MG TABLET PO SCH (09:11)
[2019-02-02] MEDS: ARIPIPRAZOLE 5 MG TABLET PO SCH (09:11)
[2019-02-02] MEDS: PRENATAL VITAMIN W DHA CAPSULE PO SCH (09:11)
[2019-02-02] MEDS: OXYCODONE HCL SR 40 MG TABLET PO SCH (09:11)
[2019-02-02] MEDS: SENNOSIDES/DOCUSATE 8.6-50 MG 1 EACH TABLET PO SCH (09:12)
[2019-02-02] MEDS: FENOFIBRATE NANOCRYSTALLIZED 145 MG TABLET PO SCH (09:12)
--- NOTE | 2019-02-02 11:08 | PDOC DISCHARGE SUMMARY ---
General - Admit/Disc Date/PCP Admission Date/Primary Care Provider: 01/30/19 06:29 LEILA SPICER PA-C Discharge Date: 02/02/19 - Discharge Diagnosis (1) Arthritis of right knee Is this a current diagnosis for this admission?: Yes - Additional Information Resuscitation Status: Full Code Discharge Diet: As Tolerated Discharge Activity: Activity As Tolerated, Balance Activity w/Rest Home Medications: Allopurinol [Zyloprim 100 mg Tablet] 200 mg PO DAILY 01/15/18 Metformin HCl [Metformin HCl ER] 500 mg PO BIDBS 01/15/18 Ergocalciferol (Vitamin D2) [Vitamin D2] 50,000 unit PO CORTES@1000 06/08/18 Pregabalin [Lyrica 50 mg Capsule] 100 mg PO Q8 06/08/18 Sitagliptin Phosphate [Januvia 50 mg Tablet] 100 mg PO QPM 06/08/18 Aripiprazole [Abilify] 5 mg PO DAILY 10/11/18 Atorvastatin Calcium [Lipitor 40 mg Tablet] 20 mg PO QHS 10/11/18 Fenofibrate 160 mg PO DAILY 01/10/19 Diclofenac Sodium [Voltaren] 4 gm TP QIDP PRN 01/30/19 Ibuprofen [Motrin 800 mg Tablet] 800 mg PO Q8HP PRN 01/30/19 Oxycodone HCl/Acetaminophen [Percocet 10-325 Mg Tablet] 1 each PO Q6HP PRN 01/30/19 History of Present Illness Patient complains of: Right knee pain History of Present Illness: THAIS HERNANDEZ is a 53 year old female right knee discomfort. patient had long-standing history of osteoarthritis of the right knee. Attempted conservative management without resolution of patient's symptoms at that point decision was made to proceed with operative intervention. Hospital Course Hospital Course: Patient underwent operative right total knee arthroplasty on 01/30/2019. Patient progressed throughout her hospital course did have some pain issues on the first postoperative day but this did improve. Patient was ambling approxi-300 feet on postop day #3. Pain was controlled on date of discharge the decision was made for discharge to home. Physical Exam Vital Signs: Temp Pulse Resp BP Pulse Ox 100.0 F 100 17 114/67 91 L 02/02/19 10:57 02/02/19 10:57 02/02/19 10:57 02/02/19 10:57 02/02/19 10:57 Intake & Output 02/01/19 02/02/19 02/03/19 06:59 06:59 06:59 Intake Total 2571 1500 Balance 2571 1500 Weight 110.5 kg 113.1 kg General appearance: PRESENT: no acute distress, well-developed, well-nourished Head exam: PRESENT: atraumatic, normocephalic Eye exam: PRESENT: conjunctiva pink, EOMI, PERRLA. ABSENT: scleral icterus Ear exam: PRESENT: normal external ear exam Mouth exam: PRESENT: moist, tongue midline Neck exam: PRESENT: full ROM. ABSENT: carotid bruit, JVD, lymphadenopathy, thyromegaly Cardiovascular exam: PRESENT: RRR. ABSENT: diastolic murmur, rubs, systolic murmur Pulses: PRESENT: normal dorsalis pedis pul, +2 pedal pulses bilateral Vascular exam: PRESENT: normal capillary refill GI/Abdominal exam: PRESENT: normal bowel sounds, soft. ABSENT: distended, guarding, mass, organolmegaly, rebound, tenderness Rectal exam: PRESENT: deferred Musculoskeletal exam: PRESENT: other - Right knee: Serosanguineous drainage along the distal aspect of the wound. Mild effusion. No erythema. No calf tenderness. Intact plantarflexion/dorsiflexion with weakness upon dorsiflexion. Hypoesthesias on the dorsal aspect of the foot. Cap refill less than 2 seconds . Neurological exam: PRESENT: alert, awake, oriented to person, oriented to place, oriented to time, oriented to situation, CN II-XII grossly intact. ABSENT: motor sensory deficit Psychiatric exam: PRESENT: appropriate affect, normal mood. ABSENT: homicidal ideation, suicidal ideation Skin exam: PRESENT: dry, intact, warm. ABSENT: cyanosis, rash Results Laboratory Results: 02/02/19 06:15 01/31/19 04:50 02/02/19 06:15 WBC 9.3 RBC 3.01 L Hgb 9.1 L Hct 26.5 L MCV 88 MCH 30.1 MCHC 34.2 RDW 13.9 Plt Count 220 Impressions: Knee X-Ray 01/30/19 10:16 IMPRESSION: SATISFACTORY POSTOPERATIVE RIGHT KNEE. Qualifiers - * PATIENT BEING DISCHARGED WITH ANY OF THE FOLLOWING DIAGNOSIS: No Acute Heart Failure Is this a Heart Failure Patient?: No Plan Discharge Plan: Patient progressed appropriate throughout her hospital course on 02/02/2019 orthopedically stable discharge to home with home health. Patient will continue physical therapy and home exercise program. Patient will call with any questions or concerns including increasing redness, swelling, pain or temperature greater 101.5. Patient was read above instructions understood above instructions orthopedically stable for discharge to home.
[2019-02-03] MEDS ORDERED: ERGOCALCIFEROL (VITAMIN D2) 50000 UNIT (1.25 MG) CAPSULE PO SCH (10:00)
== END 2019-02-02 11:33 | disposition home health service (06) | DRG 470 ==
LOC: INOR 06:29 → 4S 11:47
PROVIDERS: ADMIT Orthopaedic Surgery; ATTEND Orthopaedic Surgery
PROC: 0SRC0JA Replacement of Right Knee Joint with Synthetic Substitute, Uncemented, Open Approach (ICD-10-PCS; principal; 2019-01-30 09:00)
DX: M17.11 Unilateral primary osteoarthritis, right knee (principal); E11.9 Type 2 diabetes mellitus without complications; F41.9 Anxiety disorder, unspecified; M10.9 Gout, unspecified; Z79.84 Long term (current) use of oral hypoglycemic drugs
CPT/HCPCS: 01402; 36415; 80048; 81025; 82962; 85027; 88305; 88311; 94799; C1776; J0690; J1170; J1741; J1815; J2250; J2270; J2405; J2704; J3010; J3370; J3490; J7050; J7060; J7120

== ENCOUNTER → 2019-03-01 | Outpatient (CLI) | payer MEDICAID, OTHER ==
--- NOTE | 2019-03-07 14:27 | WOMENS IMAGING REPORT ---
EXAM DESCRIPTION: 3D SCREENING MAMMO BILAT COMPLETED DATE/TIME: 03/01/2019 7:42 am REASON FOR STUDY: Z12.31 ENCOUNTER FOR SCREENING MAMMOGRAM FOR MALIGNANT NEOPLASM OF BREAST Z12.31 ENCNTR SCREEN MAMMOGRAM FOR MALIGNANT NEOPLASM OF MOMO COMPARISON: Multiple since 2010 EXAM PARAMETERS: Views: Standard craniocaudal and mediolateral oblique views of each breast recorded using digital acquisition and breast tomosynthesis. Read with the assistance of CAD. .[facility] - [employer] Version 9.2 LIMITATIONS: None. FINDINGS: No suspicious masses, suspicious calcifications or architectural distortion. No areas of c oncern. IMPRESSION: NEGATIVE MAMMOGRAM. BIRADS 1. BREAST DENSITY: c. The breasts are heterogeneously dense, which may obscure small masses. BIRAD: ASSESSMENT: 1 NEGATIVE RECOMMENDATION: ROUTINE SCREENING COMMENT: The patient has been notified of the results by letter per MQSA requirements. Additional no tification policies are in place for contacting patient with suspicious or incomplete findings. Quality ID #[id number]: The [employer] recommends an annual screening mammogram for women aged 40 years or over. This facility utilizes a reminder system to ensure that all patients receive reminder letters, and/or direct phone calls for appointments. This includes reminders for routine scr eening mammograms, diagnostic mammograms, or other Breast Imaging Interventions when appropriate. Th is patient will be placed in the appropriate reminder system. TECHNICAL DOCUMENTATION: FINDING NUMBER: (1) ASSESSMENT: (1) JOB ID: [id number] [employer]- All Rights Reserved Reading location - IP/workstation name: [email or web address]
== END ==
LOC: WI 07:07
PROVIDERS: ATTEND Physician Assistant
DX: Z12.31 Encounter for screening mammogram for malignant neoplasm of breast (principal)
CPT/HCPCS: 77063; 77067

== ENCOUNTER 2019-12-06 10:00 | Emergency (ER) | payer MEDICAID ==
[2019-12-06] MEDS ORDERED: IPRATROPIUM/ALBUTEROL 0.5-2.5 MG/3 ML AMPUL NEB ONE (10:13)
[2019-12-06] MEDS ORDERED: NORMAL SALINE 1000 ML 1,000 ML IV PRN (10:14)
--- NOTE | 2019-12-06 10:16 | ER Document Report ---
ED Medical Screen (RME) - General Chief Complaint: Breathing Difficulty Stated Complaint: ABNORMAL LABS Time Seen by Provider: 12/06/19 10:13 Primary Care Provider: LEILA SPICER PA-C [Primary Care Provider] - Follow up as needed Information source: Dr. Beauchamp - This 54-year-old female who was referred from [facility] for follow-up 1 week after pneumonia diagnosis not getting any better blood glucose was too high to read on an Accu-Chek. TRAVEL OUTSIDE OF THE [place] IN LAST 30 DAYS: No - Related Data Allergies/Adverse Reactions: No Known Allergies Allergy (Verified 12/06/19 10:06) Home Medications: DM. CHOLESTEROL Past Medical History - Social History Chew tobacco use (# tins/day): No Frequency of alcohol use: None Drug Abuse: None Family history: CVA, Hypertension - Past Medical History Cardiac Medical History: Reports: Hx Hypercholesterolemia, Hx Hypertension Denies: Hx Atrial Fibrillation, Hx Congestive Heart Failure, Hx Coronary Artery Disease, Hx Heart Attack, Hx Peripheral Vascular Disease, Hx Heart Murmur Pulmonary Medical History: Denies: Hx Asthma, Hx Bronchitis, Hx COPD, Hx Pneumonia, Hx Sleep Apnea Neurological Medical History: Denies: Hx Cerebrovascular Accident, Hx Seizures Endocrine Medical History: Reports: Hx Diabetes Mellitus Type 2 - w/neuropathy. Denies: Hx Graves' Disease, Hx Hyperthyroidism, Hx Hypothyroidism Renal/ Medical History: Denies: Hx Kidney Stones, Hx Peritoneal Dialysis Malignancy Medical History: Denies: Hx Leukemia Musculoskeltal Medical History: Reports Hx Arthritis, Denies Hx Fibromyalgia, Reports Hx Gout, Denies Hx Muscular Dystrophy, Reports Hx Musculoskeletal Trauma, Denies Hx Systemic Lupus Erythematosus Psychiatric Medical History: Reports: Hx Bipolar Disorder, Hx Depression Denies: Hx Schizophrenia Traumatic Medical History: Reports: Hx Fractures - right toes 4th and 5th Infectious Medical History: Denies: Hx HIV Past Surgical History: Reports: Hx Section, Hx Orthopedic Surgery - L wrist cyst. Denies: Hx Appendectomy, Hx Bowel Surgery, Hx Cholecystectomy, Hx Coronary Artery Bypass Graft, Hx Gastric Bypass Surgery, Hx Herniorrhaphy, Hx Hysterectomy, Hx Mastectomy, Hx Pacemaker, Hx Tonsillectomy, Hx Tubal Ligation - Immunizations Immunizations up to date: Yes Hx Diphtheria, Pertussis, Tetanus Vaccination: Yes Physical Exam - Respiratory Breath sounds: Decreased air movement, Rhonchi Doctor's Discharge - Discharge Referrals: LEILA SPICER PA-C [Primary Care Provider] - Follow up as needed
[2019-12-06] MEDS: ALBUTEROL SULFATE 0.083% NEB 2.5 MG/3 ML AMPUL NEB SCH (10:38)
[2019-12-06 10:40] VITALS: BP 125/69
--- NOTE | 2019-12-06 11:12 | RADIOLOGY REPORT (SQ) ---
EXAM DESCRIPTION: CHEST 2 VIEWS COMPLETED DATE/TIME: 12/06/2019 10:26 am REASON FOR STUDY: cough COMPARISON: Chest films 01/02/2019, 07/18/2018 EXAM PARAMETERS: NUMBER OF VIEWS: two views TECHNIQUE: Digital Frontal and Lateral radiographic views of the chest acquired. RADIATION DOSE: NA LIMITATIONS: none FINDINGS: LUNGS AND PLEURA: No opacities, masses or pneumothorax. No pleural effusion. MEDIASTINUM AND HILAR STRUCTURES: No masses or contour abnormalities. HEART AND VASCULAR STRUCTURES: Heart normal size. No evidence for failure. BONES: No acute findings. HARDWARE: None in the chest. OTHER: No other significant finding. IMPRESSION: NO ACUTE RADIOGRAPHIC FINDING IN THE CHEST. TECHNICAL DOCUMENTATION: JOB ID: [id number] 2010 [employer]- All Rights Reserved Reading location - IP/workstation name: [email or web address]
[2019-12-06 11:19] LABS: ABSOLUTE BASOPHILS # (AUTO) 0.1 10^3/uL (0.0-0.2); ABSOLUTE EOSINOPHILS # (AUTO) 0.1 10^3/uL (0.0-0.6); ABSOLUTE MONOCYTES (AUTO) 0.7 10^3/uL (0.1-1.4); BASOPHILS % (AUTO) 1.2 % (0-2); EOSINOPHILS % (AUTO) 0.8 % (0-6); HEMATOCRIT 40.7 % (36.0-47.0); HEMOGLOBIN 13.8 g/dL (12.0-15.5); LYMPHOCYTES % (AUTO) 20.3 % (13-45); MEAN CORPUSCULAR HEMOGLOBIN 30.2 pg (27.0-33.4); MEAN CORPUSCULAR HGB CONC 33.9 g/dL (32.0-36.0); MEAN CORPUSCULAR VOLUME 89 fl (80-97); MONOCYTES % (AUTO) 6.9 % (3-13); PLATELET COUNT 290 10^3/uL (150-450); RED BLOOD COUNT 4.57 10^6/uL (3.72-5.28); RED CELL DISTRIBUTION WIDTH 14.1 % (11.5-14.0); SEGMENTED NEUTROPHILS % (AUTO) 70.8 % (42-78); TOTAL CELLS COUNTED % (AUTO) 100 %; WHITE BLOOD COUNT 9.9 10^3/uL (4.0-10.5)
[2019-12-06 11:22] LABS: APPEARANCE,URINE CLEAR; BILIRUBIN,URINE NEGATIVE (NEGATIVE); COLOR,URINE STRAW; GLUCOSE, URINE >=500 mg/dL (NEGATIVE); KETONES,URINE 20 mg/dL (NEGATIVE); LEUKOCYTE ESTERASE,URINE NEGATIVE (NEGATIVE); NITRITE,URINE NEGATIVE (NEGATIVE); PROTEIN,URINE NEGATIVE (NEGATIVE); URINE SPECIFIC GRAVITY 1.033; UROBILINOGEN,URINE NEGATIVE mg/dL (<2.0)
[2019-12-06] MEDS ORDERED: ONDANSETRON 4 MG TAB.RAPDIS PO ONE (13:19)
[2019-12-06] MEDS ORDERED: MAG HYDROX/AL HYDROX/SIMETH SUSP 30 ML UDCUP PO ONE ×2 (13:19→16:18)
[2019-12-06] MEDS ORDERED: HYDROCODONE/ACETAMINOPHEN 5-325 MG TABLET PO ONE (13:19)
[2019-12-06 13:24] LABS: ALBUMIN 4.4 g/dL (3.5-5.0); ALKALINE PHOSPHATASE 57 U/L (38-126); ANION GAP 17 (5-19); ASPARTATE AMINO TRANSFERASE 20 U/L (14-36); BILIRUBIN,DIRECT 0.1 mg/dL (0.0-0.4); BILIRUBIN,TOTAL 0.5 mg/dL (0.2-1.3); BLOOD UREA NITROGEN 11 mg/dL (7-20); CALCIUM 10.4 mg/dL (8.4-10.2); CARBON DIOXIDE 21 mmol/L (22-30); CHLORIDE 96 mmol/L (98-107); POTASSIUM 3.5 mmol/L (3.6-5.0); TOTAL PROTEIN 7.2 g/dL (6.3-8.2)
[2019-12-06 13:43] LABS: GLUCOSE 410 mg/dL (75-110)
[2019-12-06] MEDS ORDERED: INSULIN REG, HUMAN 100 UNIT/ML 3 ML VIAL (PYX) IV ONE (14:05)
[2019-12-06] MEDS ORDERED: LIDOCAINE 2% VISCOUS SOLN 15 ML UDCUP PO ONE (16:18)
--- NOTE | 2019-12-06 16:40 | ER Document Report ---
ED General - General Chief Complaint: Breathing Difficulty Stated Complaint: ABNORMAL LABS Time Seen by Provider: 12/06/19 10:13 Primary Care Provider: LEILA SPICER PA-C [Primary Care Provider] - Follow up as needed TRAVEL OUTSIDE OF THE [place] IN LAST 30 DAYS: No - HPI Notes: Patient is a 54-year-old female who presents to the emergency department for evaluation. She states to me that she has had a cough for several weeks. She states that she was told it first she had bronchitis. She was then told she had pneumonia. She took an antibiotic and finished it, as well as a prescription for prednisone, which she is still taking. She states she still feels poorly. She went to her doctor today because she stated that she had a "lump" in her chest. She had severe pain, exacerbated by swallowing, present for the last 4 to 5 days and he told her that she had continued and worsened pneumonia. The patient states she is not even coughing. She states she did have one episode of, coughing something up" 5 days ago. He sent her here to the emergency department for further evaluation. On evaluation there, her blood glucose was too high to measure as well. The patient admits she does not check her blood sugar frequently. She admits to drinking regular soda, juice regularly. She is having some difficulty describing the sensation in her chest. She states it feels like "a lump" that moves frequently she points to her suprasternal area. She states it really hurts to swallow. - Related Data Allergies/Adverse Reactions: No Known Allergies Allergy (Verified 12/06/19 10:06) Home Medications: DM. CHOLESTEROL Past Medical History - General Information source: Patient, DrMichelle Office - This 54-year-old female who was referred from [facility] for follow-up 1 week after pneumonia diagnosis not getting any better blood glucose was too high to read on an Accu-Chek. - Social History Smoking Status: Current Every Day Smoker Chew tobacco use (# tins/day): No Frequency of alcohol use: None Drug Abuse: None Family History: Arthritis, CAD, CVA, Hyperlipidemia, Hypertension Patient has suicidal ideation: No Patient has homicidal ideation: No - Past Medical History Cardiac Medical History: Reports: Hx Hypercholesterolemia, Hx Hypertension Denies: Hx Atrial Fibrillation, Hx Congestive Heart Failure, Hx Coronary Artery Disease, Hx Heart Attack, Hx Peripheral Vascular Disease, Hx Heart Murmur Pulmonary Medical History: Denies: Hx Asthma, Hx Bronchitis, Hx COPD, Hx Pneumonia, Hx Sleep Apnea Neurological Medical History: Denies: Hx Cerebrovascular Accident, Hx Seizures Endocrine Medical History: Reports: Hx Diabetes Mellitus Type 2 - w/neuropathy. Denies: Hx Graves' Disease, Hx Hyperthyroidism, Hx Hypothyroidism Renal/ Medical History: Denies: Hx Kidney Stones, Hx Peritoneal Dialysis Malignancy Medical History: Denies: Hx Leukemia Musculoskeletal Medical History: Reports Hx Arthritis, Denies Hx Fibromyalgia, Reports Hx Gout, Denies Hx Muscular Dystrophy, Reports Hx Musculoskeletal Trauma, Denies Hx Systemic Lupus Erythematosus Psychiatric Medical History: Reports: Hx Bipolar Disorder, Hx Depression Denies: Hx Schizophrenia Traumatic Medical History: Reports: Hx Fractures - right toes 4th and 5th Infectious Medical History: Denies: Hx HIV Past Surgical History: Reports: Hx Section, Hx Orthopedic Surgery - L wrist cyst. Denies: Hx Appendectomy, Hx Bowel Surgery, Hx Cholecystectomy, Hx Coronary Artery Bypass Graft, Hx Gastric Bypass Surgery, Hx Herniorrhaphy, Hx Hysterectomy, Hx Mastectomy, Hx Pacemaker, Hx Tonsillectomy, Hx Tubal Ligation - Immunizations Immunizations up to date: Yes Hx Diphtheria, Pertussis, Tetanus Vaccination: Yes Review of Systems - Review of Systems EENT: See HPI Cardiovascular: See HPI Respiratory: See HPI -: Yes All other systems reviewed and negative Physical Exam - Vital signs Vitals: Temp Pulse Resp BP Pulse Ox 98.9 F 100 20 125/69 100 12/06/19 10:04 12/06/19 10:04 12/06/19 10:04 12/06/19 10:04 12/06/19 10:04 - Notes Notes: Vital signs reviewed, please refer to chart. Head is normocephalic, atraumatic. Pupils equal round, reactive to light. Neck is supple without meningismus. Heart is regular rate and rhythm. Lungs are clear to auscultation bilaterally. Abdomen is soft, nontender, normoactive bowel sounds throughout. Extremities without cyanosis, clubbing. Posterior calves are nontender. Peripheral pulses are equal. Skin is warm and dry. Patient is awake, alert, oriented x3. Cranial nerves II - XII are grossly intact without focal neurological deficits. Strength is plus 5 out of 5 bilateral upper and lower extremities. Sensation is intact. Reflexes symmetrical. Intact [id number], rapid alternating movements, [id number]. Course - Re-evaluation Re-evalutation: 12/06/19 18:16 Patient presents emergency department for evaluation. She complains of chest pain. On further questioning, it seems actually more like pain with swallowing. It is a dysphagia. The patient had an EGD 4 months ago which she states was normal. She was not started on any medications. The patient was concerned that it could be her heart, cardiac enzymes were added. Her troponin was completely undetectable. Patient states she really only has this pain and lump sensation when she swallows. She has a completely normal neurological exam. She has not had any choking episodes. The patient's blood glucose has been very high secondary to the prednisone therapy she has been started on. My suspicion is that perhaps she has a yeast esophagitis. I will go ahead and start her on some nystatin. She is told to completely discontinue the prednisone, as her lungs have been clear, she has been oxygenating well, and I do not believe is helping her in any way. She was amenable to this. Again, her chest x-ray was totally normal, she was told that she has no pneumonia. I do not have a clear etiology of her chest pain, but we will treat for supposed candidal esophagitis and have her follow-up with primary care. She is amenable to this plan. She is to return to the ED with worsening or concerning symptoms of any sort. - Vital Signs Vital signs: Temp Pulse Resp BP Pulse Ox 98.9 F 100 20 125/69 95 12/06/19 10:04 12/06/19 10:04 12/06/19 10:04 12/06/19 10:04 12/06/19 14:00 - Laboratory Result Diagrams: 12/06/19 10:50 12/06/19 12:50 Laboratory results interpreted by me: 12/06/19 12/06/19 12/06/19 10:49 10:50 10:50 RDW 14.1 H Sodium Potassium Chloride Carbon Dioxide Glucose POC Glucose 511 H* Calcium Urine Glucose (UA) >=500 H Urine Ketones 20 H 12/06/19 12/06/19 12/06/19 12:00 12:50 15:16 RDW Sodium 134.0 L Potassium 3.5 L Chloride 96 L Carbon Dioxide 21 L Glucose 410 H* POC Glucose 491 H* 352 H Calcium 10.4 H Urine Glucose (UA) Urine Ketones - Diagnostic Test Radiology reviewed: Reports reviewed Radiology results interpreted by me: 12/06/19 18:19 Chest X-Ray 12/06/19 10:14 IMPRESSION: NO ACUTE RADIOGRAPHIC FINDING IN THE CHEST. Discharge - Discharge Clinical Impression: Chest pain, Dysphagia, Hyperglycemia Condition: Stable Disposition: HOME, SELF-CARE Instructions: Dysphagia ([facility]) Additional Instructions: Please follow-up with your primary care provider next week. Take the nystatin as directed until gone. Return to the emergency department with worsening concerning symptoms of any sort. Prescriptions: Nystatin [Mycostatin 489294 Unit/1 ml Susp 60 ml Btl] 300,000 unit PO TID #90 ml Referrals: LEILA SPICER PA-C [Primary Care Provider] - Follow up as needed
[2019-12-06] MEDS ORDERED: NYSTATIN 500000 UNIT/5 ML UDCUP PO ONE ×2 (18:06→18:45)
== END 2019-12-06 18:38 | disposition home or self-care (01) ==
LOC: ER 10:00
DX: R06.00 Dyspnea, unspecified (principal); R13.10 Dysphagia, unspecified; E11.40 Type 2 diabetes mellitus with diabetic neuropathy, unspecified; R05 Cough; E78.00 Pure hypercholesterolemia, unspecified; F17.200 Nicotine dependence, unspecified, uncomplicated; I10 Essential (primary) hypertension
CPT/HCPCS: 94640 ×2; 99285; 96360; 36415; 82962; 85025; 80053; 81001; 84484; 71046; S0119; J3490 ×3; J1815; J7030; J7620